=== PATIENT | female | born 1980 | race Hispanic/Latino ===

== ENCOUNTER 2023-12-11 06:14 | Day surgery (SDC) | payer OTHER ==
[2023-12-09 16:09] LABS: Absolute Lymphocytes (CBC) 3.8 K/uL (0.7-4.9); Lymphocytes % 33.2 % (15.3-44.8); MCV 88.1 fL (80-100); MPV 8.8 fL (7.6-11.3); Platelets 384 thou/uL (152-406); RBC Red Blood Cell Count 4.53 M/uL (3.86-4.86)
--- NOTE | 2023-12-09 16:20 | RAD REPORT ---
EXAM DESCRIPTION: Hector Finn (2 Views)12/09/2023 4:10 pm CLINICAL HISTORY: Preop/hypertension COMPARISON: None FINDINGS: The lungs appear clear of acute infiltrate. The heart appears borderline enlarged IMPRESSION: No acute abnormalities displayed
[2023-12-11] MEDS: NA CHLORIDE 0.9% 1,000 ML ONE ×2 (07:15→09:45)
[2023-12-11 07:33] LABS: Urine Specific Gravity/Preg >1.030 (1.005-1.030)
[2023-12-11] MEDS ORDERED: dexAMETHasone 10 MG/ML VIAL ONE (08:11)
[2023-12-11] MEDS ORDERED: LIDOCAINE 1% MPF 5 ML VIAL ONE (08:11)
[2023-12-11] MEDS ORDERED: KETOROLAC 30 MG/ML INJ ONE (08:11)
[2023-12-11] MEDS ORDERED: ONDANSETRON 4 MG/2 ML VIAL ONE (08:11)
[2023-12-11] MEDS ORDERED: propofoL 200 MG/20 ML VIAL IV ONE (08:12)
[2023-12-11] MEDS ORDERED: FENTANYL CITR 100 MCG/2 ML ONE (08:12)
[2023-12-11] MEDS ORDERED: MIDAZOLAM HCL 2 MG/2 ML INJ ONE (08:12)
[2023-12-11] MEDS ORDERED: ROCURONIUM 50 MG/5 ML VIAL IV ONE (08:12)
[2023-12-11] MEDS: CEFAZOLIN SODIUM 1 GM/VIAL ONE (08:38)
[2023-12-11] MEDS ORDERED: NS 0.9% VIAL 10 ML ONE (08:59)
[2023-12-11] MEDS ORDERED: GLYCOPYRROLATE 0.2 MG/ML SYR ONE (09:54)
[2023-12-11] MEDS ORDERED: NEOSTIGMINE 1 MG/ML -10 ML VIAL ONE (09:55)
--- NOTE | 2023-12-11 10:23 | P.BOP ---
Preoperative diagnosis: Ventral Infraumbilical incarcerated hernia Postoperative diagnosis: same Primary procedure: LAparoscopic repair Ventral Infraumbilical incarcerated hernia with mesh Estimated blood loss: <10cc Specimen: hernia sac , incarcerated omentum Findings: incarcerated omentum Anesthesia: General Complications: None Drain(s): Other (mesh) Transferred to: Recovery Room Condition: Good
[2023-12-11] MEDS: HYDROMORPHONE HCL 1 MG/ML INJ ONE (10:35)
[2023-12-11 12:30] VITALS: BP 116/70; TEMP 97.3; O2SAT 95
--- NOTE | 2023-12-11 23:40 | DS ---
Date of Discharge: 12/11/2023 Diagnosis: Ventral infraumbilical incarcerated hernia. Procedure Performed: Laparoscopic repair of ventral infraumbilical incarcerated hernia with mesh. Condition: Stable. Disposition: Home. Activity: As tolerated. No heavy lifting. Discharge Instructions: Follow up in my office in 1 week, call for appointment [phone]. Keep area dry for 48 hours, then may remove outer dressings and shower. Keep Steri-Strip intact. Abdominal bi nder while out of bed. CONCHA/BONY Voice ID: [id number] Report ID: [id number]
--- NOTE | 2023-12-12 00:25 | OP ---
Date of Procedure: 12/11/2023 Surgeon: Melvin Gomez MD Preoperative Diagnosis: Ventral infraumbilical tender incarcerated hernia. Postoperative Diagnosis: Ventral infraumbilical tender incarcerated hernia. Procedure Performed: Repair of infraumbilical incarcerated ventral hernia with mesh. Estimated Blood Loss: Less than 10 cc. Specimens: Hernia sac, incarcerated omentum. Finding: Incarcerated omentum. Anesthesia: General plus local. Implant: Medium Ventralex mesh. Indication: This is a case of a 43-year-old patient who comes to us with the incarcerated tender rasheed tral hernia, cannot be reduced. The benefits, alternatives, and risks of repair, laparoscopic versus open with mesh fully explained, which include, but not limited to infection, bleeding, damage to adj acent structures, anesthesia complication, recurrence, RI, and even . She also understands this may not relieve symptoms. She might need more than one surgical intervention. She was explained th e importance also of losing some weight and avoid heavy lifting. Procedure In Detail: The patient was brought to the operating room, placed in supine position. Anes thesia was done without complication. Abdominal area was prepped and draped in usual sterile fashion . Local anesthesia was applied, followed by sharp incision of skin. Incision was carried down to figueroa bcutaneous tissue. We noticed the incarcerated omentum present. We have to open the hernia sac and the incarcerated omentum cannot be reduced, so we split that in two ligating with Avril cl amps and chromic. Then, when we checked each part and made sure there was no bleeding, we reduced back into the abdominal cavity. We cleaned the fascial edges. We noticed to be not intact enough, so we need to use mesh in that region. We cleaned the fascial edges. Through that area, we put Vicryl #1 in a oxxqxz-lg-lbdxf fashion multiple times and then we sent down a Daniel trocar that allowed me to have pneumoperitoneum. This also allowed me to put 5 mm trocars under direct visualiza tion over the right and left sides. This allowed me to select the proper mesh to cover the area abou t 3 to 5 cm. I then put the mesh through the Daniel trocar, removed the Daniel trocar, and then secu red the mesh anteriorly with the SorbaFix. Mesh straps were removed and then the fascial edges were approximated primarily in a eabtcx-mh-suiya fashion #1 multiple times. Then, we went intraperitoneal again and finished fixing the mesh into the anterior abdominal wall circumferentially with SorbaFix minimizing the chance of recurrence, and getting in between. At that moment, we checked t he area. We had the area of the omentum also checked with no bleeding. We deflated the pneumoperito neum, removed the trocars under direct visualization, and then closed the subcutaneous tissue with 3- 0 chromic, and the skin was approximated with 3-0 chromic in a subcuticular fashion and Steri-Strip o n top. Sponge count and instrument counts were correct. The patient tolerated procedure well. The patient was sent to recovery in stable condition. CONCHA/BONY Voice ID: [id number] Report ID: [id number]
--- NOTE | 2023-12-12 14:48 | EKG ---
Test Date: 2023-12-09 Test Time: 16:54:34 Transport Specialist: TAWANA MEASUREMENT RESULTS: Intervals: Rate: 78 IN: 170 QRSD: 82 QT: 376 QTc: 428 [place]: P: 49 IN: 170 QRS: -10 T: 42 INTERPRETIVE STATEMENTS: Normal sinus rhythm with sinus arrhythmia Cannot rule out Anterior infarct, age undetermined Abnormal ECG No previous ECG available for comparison Electronically Signed On 12-12-23 14:43:10 CARD ASSEMBLER by Jose Lovell
== END 2023-12-11 12:04 | disposition home or self-care (01) ==
LOC: OR 06:14
PROVIDERS: ATTEND Surgery
PROC: 0WUF4JZ Supplement Abdominal Wall with Synthetic Substitute, Percutaneous Endoscopic Approach (ICD-10-PCS; principal; 2023-12-11 08:45)
DX: K43.6 Other and unspecified ventral hernia with obstruction, without gangrene (principal); I10 Essential (primary) hypertension; E11.9 Type 2 diabetes mellitus without complications
CPT/HCPCS: 36415; 71046; 80048; 81025; 82947; 85025; 88302; 93005; A4216; J0690; J1100; J1170; J2001; J2250; J2405; J2704; J2710; J3010; J7030

== ENCOUNTER 2024-04-11 18:35 | Emergency (ER) | payer OTHER ==
--- OUTSIDE RECORDS SUMMARY | 2024-04-11 18:45 | XMS REPORT | Continuity of Care Document ---
Author Name Unknown Address [address] [facility] [address] [place] [address] [facility] thconnect Address [address] [facility] [place] [address] Care Team Providers Care Rubber Chemist Name Role Phone Lakeshia Perez Primary Care Physician [phone] AFIA BUCKLEY Attending Clinician Unavailable MONA SIDDIQUI Attending Clinician Unavailable Mona Velarde Attending Clinician [facility]ending [facility] + RALPH CRISTOBAL Attending Clinician Unavailable SARA QUARLES Attending Clinician UnavailSara Fajardo MD Attending Clinician Elyssa Louise MD Attending Clinician Liliana Vela MD Attending Clinician LILIANA VELA Attending Clinician Unavailable LEANDRA MURILLO Attending Clinician Unavail able Doctor Unassigned, [place] Attending Clinician U navailable Payers Payer Name Policy Type Policy Number Effective Date Expirati on Date Source Problems Condition Name Condition Details Condition Category Status Onset Date Resolution Date Last Treatment Date Treating Clinician Comments Source BMI 45.0-49.9, adult BMI 45.0-49.9, adult Disease Active 2022-10 00:00: 00 [facility] Well woman exam Well woman exam Disease Active 05-19 00:00: 00 [facility] Morbid obesity Morbid obesity Disease Active 05-07 00:00: 00 [facility] IUD (intrauter ine device) in place IUD (intrauter ine device) in place Disease Active 01-04 00:00: 00 Overview: Due for removal 11/23/2019 [facility] Encounter for IUD removal Encounter for IUD removal Disease Active 01-04 00:00: 00 Overview: Formattin g of this note might be different from the original. Due for removal 11/23/2019 [facility] Dysmenorrh ea Dysmenorrh ea Disease Active 11-23 00:00: 00 [facility] HTN (hypertens ion) HTN (hypertens ion) Disease Active 814 00:00: 00 [facility] Type 2 diabetes mellitus without complicati on Type 2 diabetes mellitus without complicati on Disease Active 05-26 00:00: 00 [facility] Allergies, Adverse Reactions, Alerts Allergy Name Allergy Type Status Severity Reaction(s) Onset Date Inactive Date Treating Clinician Comments Source NO KNOWN ALLERGIE S Drug Class Active [facility] Social History Social Habit Start Date Stop Date Quantity Comments Source [facility] 2023-10-15 00:00:00 2023-10-15 00:00:00 Current non-drinker of alcohol (finding) [facility] Tobacco use and exposure 2023-10-15 00:00:00 2023-10-15 00:00:00 Smokeless tobacco non-user [facility] History of Social function 2023-10-15 00:00:00 2023-10-15 00:00:00 [facility] Sex Assigned At 1980 00:00:00 1980 00:00:00 [facility] Smoking Status Start Date Stop Date Source Never smoked tobacco [facility] Medications Ordered Medication Name Filled Medication Name Start Date Stop Date Current Medication? Ordering Clinician Indication Dosage Frequency Signature (SIG) Comments Components Source glipizide 5 mg-metformi n 500 mg tablet 02-03 00:00: 00 Yes 2mg Shawn Diaz Victoza 3-Richard 0.6 mg/0.1 mL (18 mg/3 mL) subcutaneou s pen injector 02-02 00:00: 00 Yes (18 mg/3 mL) Shawn Diaz lisinopril 5 mg tablet 02-02 00:00: 00 Yes mg Shawn Diaz Lantus Solostar U-100 Insulin 100 unit/mL (3 mL) subcutaneou s pen 02-02 00:00: 00 Yes (3 mL) Shawn Diaz glipizide 5 mg-metformi n 500 mg tablet 02-02 00:00: 00 Yes 2mg Shawn Diaz atorvastati n 20 mg tablet 02-02 00:00: 00 Yes 1mg Shawn Diaz clotrimazol e 1 % vaginal cream 01-30 00:00: 00 Yes 1% Shawn Diaz amoxicillin 500 mg tablet - 00:00: 00 Yes 2mg Shawn Diaz clarithromy chika 500 mg tablet - 00:00: 00 Yes 1mg Shawn Diaz omeprazole 20 mg capsule,del ayed release 01-20 00:00: 00 Yes 1mg Shawn Diaz AMOXICILLIN 500 MG CAPSULE - 00:00: 00 Yes Shawn Diaz SULFAMETHOX AZOLE-TMP DS -14 00:00: 00 Yes Shawn Diaz TAKE 1 TABLET BY MOUTH EVERY 4 TO 6 HOURS NEEDED -14 00:00: 00 Yes Shawn Diaz lisinopril 5 mg tablet -08 00:00: 00 Yes mg Shawn Diaz INJECT 10 UNITS SC ONCE A DAY -08 00:00: 00 Yes 100 Shawn Diaz INJECT 1.8 MG SUBCUTANEOU SLY EVERY DAY 2-05 00:00: 00 Yes 183 Shawn Diaz TAKE 2 TABLETS TWICE DAILY 2-05 00:00: 00 Yes 5500 Shawn Diaz TAKE 1 TABLET BY MOUTH EVERY EVENING 12-02 00:00: 00 Yes 20 Shawn Diaz INJECT 10 UNITS SC ONCE A DAY 12-02 00:00: 00 02-18 00:00 :00 No 100 Shawn Diaz TAKE 1 NOW, REPEAT IN 3 DAYS 11-05 00:00: 00 02-18 00:00 :00 No 150 Shawn Diaz INSERT 1 APPLICATORF UL INTRAVAGINA LLY AT BEDTIME NIGHTLY. 11-05 00:00: 00 02-18 00:00 :00 No 1 Shawn Diaz INJECT 1.8 MG SUBCUTANEOU SLY EVERY DAY 11-05 00:00: 00 02-18 00:00 :00 No 183 Shawn Diaz TAKE 1 TABLET TWICE DAILY UNTIL FINISHED. 2022-10 00:00: 00 02-18 00:00 :00 No 500 Shawn Diaz citalopram hydrobromid e (CITALOPRAM ORAL) 2022-10 09:35: 49 Yes 20mg Take 20 mg by mouth daily. [facility] lisinopriL 2.5 mg tablet 2022-10 09:35: 49 Yes 2.5mg Take 1 tablet by mouth daily. [facility] atorvastati n 20 mg tablet 2022-10 09:35: 49 Yes 20mg Take 1 tablet by mouth at bedtime. [facility] glipizide-m etformin 5-500 mg per tablet 2022-10 09:35: 49 Yes 2{tbl} Take 2 tablets by mouth 2 (two) times daily before breakfast and dinner. [facility] TAKE 1 CAPSULE TWICE DAILY. 2022-10 00:00: 00 02-18 00:00 :00 No 100 Shawn Diaz INSERT 1 APPLICATORF UL INTRAVAGINA LLY AT BEDTIME NIGHTLY. 2022-10 00:00: 00 02-18 00:00 :00 No 1 Shawn Diaz TAKE 1 NOW, REPEAT IN 3 DAYS 2023-1 2-18 00:00: 00 02-18 00:00 :00 No 150 Shawn Megan Diaz TAKE 1 CAPSULE TWICE DAILY UNTIL GONE. 2022-10 00:00: 00 02-18 00:00 :00 No 100 Shawn F Joe INSERT 1 APPLICATORF UL INTRAVAGINA LLY AT BEDTIME NIGHTLY. 2022-10 00:00: 00 02-18 00:00 :00 No 1 Shawnmel Diaz TAKE 1 TABLET NOW, AND REPEAT IN 4 DAYS. 2022-10 00:00: 00 02-18 00:00 :00 No 150 Shawn F Joe TAKE 1 TABLET DAILY. 2022-10 00:00: 00 Yes 25 Shawn Megan Diaz TAKE 1 TABLET BY MOUTH EVERY EVENING 2022-10 0 00:00: 00 02-18 00:00 :00 No 20 Shawn F Joe INJECT 1.8 MG SUBCUTANEOU SLY EVERY DAY 2022-10 00:00: 00 02-18 00:00 :00 No 183 Shawn F Joe TAKE 2 TABLETS TWICE DAILY 2022-10 0 00:00: 00 02-18 00:00 :00 No 5500 Shawn F Joe TAKE 1 TABLET BY MOUTH EVERY EVENING 04-15 00:00: 00 02-18 00:00 :00 No 20 Shawn F Joe TAKE 1 TABLET ONCE DAILY. 04-15 00:00: 00 02-18 00:00 :00 No 45 Shawn F Joe TAKE 2 TABLETS TWICE DAILY 04-15 00:00: 00 02-18 00:00 :00 No 5500 Shawn F Joe INJECT 1.2 MG/DAILY SC 04-15 00:00: 00 02-18 00:00 :00 No 183 Shawn F Joe TAKE 1 TABLET DAILY. 04-15 00:00: 00 02-18 00:00 :00 No 25 Shawn F Joe TAKE 1 TABLET TWICE DAILY. 4- 00:00: 00 02-18 00:00 :00 No [id number] Shawn F Joe TAKE 1 TABLET DAILY NEEDED. 4-25 00:00: 00 02-18 00:00 :00 No 10 Shawn F Joe TAKE 1 TABLET TWICE DAILY. 4 00:00: 00 02-18 00:00 :00 No 500 Shawn F Joe TAKE 1 TABLET BY MOUTH EVERY EVENING 4-20 00:00: 00 02-18 00:00 :00 No 20 Shawn F Joe TAKE 1 TABLET DAILY. 4-20 00:00: 00 02-18 00:00 :00 No 25 Shawn F Joe TAKE 1 TABLET TWICE DAILY UNTIL FINISHED. 01-17 00:00: 00 02-18 00:00 :00 No 500 Shawn F Joe TAKE 1 TABLET NOW, AND REPEAT IN 4 DAYS. 01-17 00:00: 00 02-18 00:00 :00 No 150 Shawn F Joe INJECT 1.2 MG/DAILY SC 3- 00:00: 00 02-18 00:00 :00 No 183 Shawn F Joe TAKE 1 TABLET BY MOUTH EVERY EVENING 1- 00:00: 00 02-18 00:00 :00 No 20 Shawn F Joe TAKE 1 TABLET ONCE DAILY. - 00:00: 00 02-18 00:00 :00 No 45 Shawn Megan Diaz TAKE 1 TABLET DAILY. 11-13 00:00: 00 02-18 00:00 :00 No 25 Shawn Megan Diaz TAKE 2 TABLETS TWICE DAILY 11-13 00:00: 00 02-18 00:00 :00 No 5500 Shawn F Joe INJECT 0.6 MG DAILY X 1 WEEK AND THEN 1.2 MG/DAILY 11-13 00:00: 00 02-18 00:00 :00 No 183 Shawn F Joe pioglitazon e 45 mg tablet 04-24 00:00: 00 Yes 1mg Shawn Megan Diaz lisinopril 2.5 mg tablet 04-24 00:00: 00 Yes 1mg Shawn Megan Diaz TAKE 1 TABLET DAILY. 2022-0 6-28 00:00: 00 Yes Shawn Diaz glipizide 5 mg-metformi n 500 mg tablet 6-28 00:00: 00 Yes 2mg Shawn Diaz Dose Unknown 3-11 00:00: 00 Yes Shawn Diaz pioglitazon e 30 mg tablet 2-19 00:00: 00 Yes 1mg Shawn Diaz lisinopril 2.5 mg tablet 2-16 00:00: 00 Yes 1mg Shawn Diaz TAKE 1 TABLET DAILY. 2-16 00:00: 00 Yes Shawn Diaz glipizide 5 mg-metformi n 500 mg tablet 2-16 00:00: 00 Yes 2mg Shawn Diaz Dose Unknown 1-18 00:00: 00 Yes Shawn Diaz lisinopril 2.5 mg tablet 1-05 00:00: 00 Yes 1mg Shawn Diaz Januvia 50 mg tablet 1-05 00:00: 00 Yes 1mg Shawn Diaz glipizide 5 mg-metformi n 500 mg tablet 1-05 00:00: 00 Yes 2mg Shawn Solizfed DM 2 mg-30 mg-10 mg/5 mL oral syrup 2020-10 2-14 00:00: 00 Yes 75mg/5 mL Shawn Diaz Januvia 50 mg tablet 2020-10 1-15 00:00: 00 Yes 1mg Shawn Diaz lisinopril 2.5 mg tablet 2020-10 1-15 00:00: 00 Yes 1mg Shawn Diaz glipizide 5 mg-metformi n 500 mg tablet 2020-10 1-15 00:00: 00 Yes 2mg Shawn Diaz Bromfed DM 2 mg-30 mg-10 mg/5 mL oral syrup 2020-10 1- 00:00: 00 Yes 75mg/5 mL Shawn Diaz Januvia 25 mg tablet 7-29 00:00: 00 Yes 1mg Shawn Diaz lisinopril 2.5 mg tablet 7- 00:00: 00 Yes 1mg Shawn Diaz glipizide 5 mg-metformi n 500 mg tablet 05-22 00:00: 00 Yes 2mg Shawn Diaz glipizide 5 mg-metformi n 500 mg tablet 02-17 00:00: 00 Yes 2mg Shawn Diaz lisinopril 2.5 mg tablet 02-13 00:00: 00 Yes 1mg Shawn Diaz glimepiride 4 mg tablet 04-04 00:00: 00 Yes 1mg Shawn Diaz metformin 1,000 mg tablet 04-04 00:00: 00 Yes 1mg Shawn Diaz levothyroxi ne 88 mcg tablet 04-04 00:00: 00 Yes 1mcg Shawn Diaz glimepiride 2 mg tablet 02-10 22:30: 44 02-10 00:00 :00 No 2mg Take 2 mg by mouth daily with breakfast. [facility] LEVOTHYROXI NE SODIUM (LEVOTHYROX INE ORAL) 02-10 22:29: 10 02-10 00:00 :00 No 88ug Take 88 mcg by mouth. [facility] Mirena 20 mcg/24 hours (6 yrs) 52 mg intrauterin e device 11 00:00: 00 Yes 1(6 yrs) 52 mg Shawn Diaz metformin ER 500 mg 24 hr tablet,exte nded release (gastric) 01-03 00:00: 00 Yes 1mg Shawn Diaz glimepiride 4 mg tablet 01-03 00:00: 00 Yes 1mg Shawn Diaz levothyroxi ne 88 mcg tablet 01-03 00:00: 00 Yes 1mcg Shawn Diaz metformin ER 500 mg 24 hr tablet,exte nded release (gastric) 12-04 00:00: 00 Yes 1mg Shawn Diaz glimepiride 4 mg tablet 12-04 00:00: 00 Yes 1mg Shawn Diaz levothyroxi ne 88 mcg tablet 12-04 00:00: 00 Yes 1mcg Shawn Diaz metformin ER 500 mg 24 hr tablet 12-04 00:00: 00 Yes 500mg Take 1 tablet by mouth 2 (two) times daily. [facility] glimepiride 4 mg tablet 12-04 00:00: 00 Yes 4mg Take 1 tablet by mouth 2 (two) times daily. [facility] triamcinolo ne acetonide 0.1 % cream 12-03 00:00: 00 Yes [id number] Apply to area(s) 2 (two) times daily. [facility] predniSONE 20 mg tablet 12-03 00:00: 00 Yes [id number] Take 2 pills by mouth every day for the first 5 days, then take 1 pill every day for the next 5 days, then take 1 pill every other day until next visit. [facility] citalopram hydrobromid e (CITALOPRAM ORAL) 05-19 21:24: 03 Yes 20mg Take 20 mg by mouth daily. [facility] glimepiride 2 mg tablet 05-19 21:24: 03 Yes 2mg Take 2 mg by mouth daily with breakfast. [facility] LEVOTHYROXI NE SODIUM (LEVOTHYROX INE ORAL) 05-19 21:24: 03 Yes 88ug Take 88 mcg by mouth. [facility] citalopram hydrobromid e (CITALOPRAM ORAL) 05-19 16:24: 03 Yes 20mg Take 20 mg by mouth daily. [facility] fluticasone propionate 0.05 % topical cream 04-08 00:00: 00 Yes 1% Shawn Megan Diaz citalopram 20 mg tablet 04-08 00:00: 00 Yes 1mg Shawn Guzman Joe hydroxyzine HCl 25 mg tablet 02-24 00:00: 00 Yes 1mg Shawn Megan Diaz triamcinliliya ne acetonide 0.025 % topical cream 01-05 00:00: 00 Yes 1% Shawn Guzman Joe metformin ER 500 mg 24 hr tablet,exte nded release (gastric) 01-05 00:00: 00 Yes 1mg Shawn Guzman Joe glimepiride 4 mg tablet 01-05 00:00: 00 Yes 1mg Shawn Diaz levothyroxi ne 88 mcg tablet 01-05 00:00: 00 Yes 1mcg Shawn Diaz phentermine 37.5 mg tablet 12-31 00:00: 00 Yes 1mg Shawn Diaz permethrin 5 % topical cream 11-20 00:00: 00 Yes 1% Shawn Diaz glimepiride 4 mg tablet 2017-10 00:00: 00 Yes 1mg Shawn Diaz levothyroxi ne 88 mcg tablet 2017-10 00:00: 00 Yes 1mcg Shawn Diaz Januvia 100 mg tablet 07-03 00:00: 00 Yes 1mg Shawn Diaz glimepiride 4 mg tablet 07-03 00:00: 00 Yes 1mg Shawn Diaz levothyroxi ne 88 mcg tablet 07-03 00:00: 00 Yes 1mcg Shawn Diaz sitaGLIPtin (JANUVIA) 100 mg tablet 05-08 00:00: 00 02-10 00:00 :00 No 100mg Take 100 mg by mouth daily. [facility] glimepiride 2 mg tablet 12-31 00:00: 00 Yes 1mg Shawn Diaz amoxicillin 500 mg tablet 12-31 00:00: 00 Yes 1mg Shawn Diaz levothyroxi ne 88 mcg tablet 12-31 00:00: 00 Yes 1mcg Shawn Diaz glimepiride 2 mg tablet 2016-10 00:00: 00 Yes 1mg Shawn Diaz glimepiride 2 mg tablet 2016-10 00:00: 00 Yes 1mg Shawn Diaz Cipro 500 mg tablet 2016-10 00:00: 00 Yes 1mg Shawn Diaz citalopram 20 mg tablet 06-04 00:00: 00 Yes 1mg Shawn Diaz loratadine 10 mg tablet 06-04 00:00: 00 Yes 1mg Shawn Diaz amoxicillin 500 mg tablet 06-04 00:00: 00 Yes 1mg Shawn Diaz levothyroxi ne 88 mcg tablet 06-04 00:00: 00 Yes 1mcg Shawn Diaz cyclobenzap rine 5 mg tablet 05-29 00:00: 00 Yes 1mg Shawn Diaz glimepiride 2 mg tablet 03-07 00:00: 00 Yes 1mg Shawn Diaz levothyroxi ne 88 mcg tablet 03-07 00:00: 00 Yes 1mcg Shawn Diaz mupirocin 2 % topical ointment 03-01 00:00: 00 Yes 1% Shawn Diaz Bactrim DS 800 mg-160 mg tablet 03-01 00:00: 00 Yes 1mg Shawn Diaz mupirocin 2 % topical ointment 12-27 00:00: 00 Yes 1% Shanw Diaz glimepiride 2 mg tablet 12-27 00:00: 00 Yes 1mg Shawn Diaz levothyroxi ne 88 mcg tablet 12-27 00:00: 00 Yes 1mcg Shawn Diaz Ciprodex 0.3 %-0.1 % ear drops,suspe nsion 2015-10 00:00: 00 Yes 4% Shawn Diaz Cipro HC 0.2 %-1 % ear drops,suspe nsion 2015-10 00:00: 00 Yes 4% Shawn Diaz Bactrim DS 800 mg-160 mg tablet 2015-10 00:00: 00 Yes 1mg Shawn Diaz Keflex 500 mg capsule 2015-10 00:00: 00 Yes 1mg Shawn Diaz glimepiride 2 mg tablet 2015-10 00:00: 00 Yes 1mg Shawn Diaz Augmentin 875 mg-125 mg tablet 2015-10 00:00: 00 Yes 1mg Shawn Diaz levothyroxi ne 88 mcg tablet 2015-10 00:00: 00 Yes 1mcg Shawn Diaz glimepiride 2 mg tablet 06-21 00:00: 00 Yes 1mg Shawn Diaz glimepiride 2 mg tablet 05-27 00:00: 00 Yes 1mg Shawn Diaz metformin 500 mg tablet 05-24 00:00: 00 Yes 1mg Shawn Diaz levothyroxi ne 88 mcg tablet 05-24 00:00: 00 Yes 1mcg Shawn Diaz Cortisporin -TC 3.3 mg-3 mg-10 mg-0.5 mg/mL ear drops,suspe nsion 01-29 00:00: 00 Yes 4mg/mL Shawn Diaz Augmentin 875 mg-125 mg tablet 01-29 00:00: 00 Yes 1mg Shawn Diaz amoxicillin 500 mg capsule 12-12 00:00: 00 Yes 1mg Shawn Diaz metformin 500 mg tablet 11-28 00:00: 00 Yes 1mg Shawn Diaz levothyroxi ne 88 mcg tablet 11-28 00:00: 00 Yes 1mcg Shawn Diaz levothyroxi ne 88 mcg tablet 2014-10 00:00: 00 Yes 1mcg Shawn Diaz levothyroxi ne 88 mcg tablet 06-13 00:00: 00 Yes 1mcg Shawn Diaz metformin 500 mg tablet 06-10 00:00: 00 Yes 1mg Shawn Diaz levothyroxi ne 88 mcg tablet 04-26 00:00: 00 Yes 1mcg Shawn Diaz metformin 500 mg tablet 03-14 00:00: 00 Yes 1mg Shawn Diaz levothyroxi ne 125 mcg tablet 03-14 00:00: 00 Yes 1mcg Shawn Diaz metformin 500 mg tablet 02-22 00:00: 00 Yes 1mg Shawn Diaz metformin 500 mg tablet 01-24 00:00: 00 Yes 1mg Shawn Diaz Immunizations Ordered Immunization Name Filled Immunization Name Date Status Comments Source Influenza, seasonal, inj Influenza, seasonal, inj 2022-11-13 00:00:00 Completed Shawn Diaz influenza, injectable influenza, injectable 2022-11-13 00:00:00 Completed Shawn Diaz (Old) COVID-19, (Pfizer) mRNA, LNP-S, PF, 30 mcg/0.3 mL dose, gerda-sucrose (Old) COVID-19, (Pfizer) mRNA, LNP-S, PF, 30 mcg/0.3 mL dose, gerda-sucrose 2021-12-13 00:00:00 Completed Shawn Diaz Influenza, seasonal, inj Influenza, seasonal, inj 2019-11-23 00:00:00 Completed Shawn Diaz TDAP (ADACEL) VACCINE 2018-04-27 00:00:00 Completed [facility] TDAP (ADACEL) VACCINE 2018-04-27 00:00:00 Completed [facility] TDAP (ADACEL) VACCINE 2018-04-27 00:00:00 Completed [facility] TDAP (ADACEL) VACCINE 2018-04-27 00:00:00 Completed [facility] TDAP (ADACEL) VACCINE 2018-04-27 00:00:00 Completed [facility] TDAP (ADACEL) VACCINE 2018-04-27 00:00:00 Completed [facility] TDAP (ADACEL) VACCINE 2018-04-27 00:00:00 Completed [facility] TDAP (ADACEL) VACCINE 2018-04-27 00:00:00 Completed [facility] TDAP (ADACEL) VACCINE 2018-04-27 00:00:00 Completed [facility] TDAP (ADACEL) VACCINE 2018-04-27 00:00:00 Completed [facility] TDAP (ADACEL) VACCINE 2018-04-27 00:00:00 Completed [facility] Tdap Tdap 2018-04-03 00:00:00 Completed Shawn Diaz Rubella 2009-03-10 00:00:00 Completed [facility] Rubella 2009-03-10 00:00:00 Completed [facility] Rubella 2009-03-10 00:00:00 Completed [facility] Rubella 2009-03-10 00:00:00 Completed [facility] Rubella 2009-03-10 00:00:00 Completed [facility] Rubella 2009-03-10 00:00:00 Completed [facility] Rubella 2009-03-10 00:00:00 Completed [facility] Rubella 2009-03-10 00:00:00 Completed [facility] Rubella 2009-03-10 00:00:00 Completed [facility] Rubella 2009-03-10 00:00:00 Completed [facility] Rubella 2009-03-10 00:00:00 Completed [facility] Td 2003-10-28 00:00:00 Completed [facility] Td 2003-10-28 00:00:00 Completed [facility] Td 2003-10-28 00:00:00 Completed [facility] Td 2003-10-28 00:00:00 Completed [facility] Td 2003-10-28 00:00:00 Completed [facility] Td 2003-10-28 00:00:00 Completed [facility] Td 2003-10-28 00:00:00 Completed [facility] Td 2003-10-28 00:00:00 Completed [facility] Td 2003-10-28 00:00:00 Completed [facility] Td 2003-10-28 00:00:00 Completed [facility] Td 2003-10-28 00:00:00 Completed [facility] Rubella Unknown Completed [facility] TD, NOS Unknown Completed [facility] TDAP (ADACEL) VACCINE Unknown Completed [facility] SARS-COV-2 COVID-19 PFIZER VACCINE Unknown Completed [facility] SARS-COV-2 COVID-19 PFIZER VACCINE Unknown Completed [facility] Rubella Unknown Completed [facility] TD, NOS Unknown Completed [facility] TDAP (ADACEL) VACCINE Unknown Completed [facility] SARS-COV-2 COVID-19 PFIZER VACCINE Unknown Completed [facility] SARS-COV-2 COVID-19 PFIZER VACCINE Unknown Completed [facility] Rubella Unknown Completed [facility] TD, NOS Unknown Completed [facility] TDAP (ADACEL) VACCINE Unknown Completed [facility] SARS-COV-2 COVID-19 PFIZER VACCINE Unknown Completed [facility] SARS-COV-2 COVID-19 PFIZER VACCINE Unknown Completed [facility] Vital Signs Vital Name Observation Time Observation Value Comments S ource Systolic blood pressure 2023-10-15 15:36:00 121 mm[Hg] [facility] Diastolic blood pressure 2023-10-15 15:36:00 84 mm[Hg] [facility] Heart rate 2023-10-15 15:36:00 88 /min Unive [facility] Body temperature 2023-10-15 15:36:00 37 Jessica [facility] Body height 2023-10-15 15:36:00 154.9 cm [facility] Body weight 2023-10-15 15:36:00 111.449 kg [facility] BMI 2023-10-15 15:36:00 46.42 kg/m2 [facility] Oxygen saturation in Arterial blood by Pulse oximetry 2023-10-15 15:36:00 97 /min [facility] Systolic blood pressure 2019-12-30 14:49:00 144 mm[Hg] [facility] Diastolic blood pressure 2019-12-30 14:49:00 91 mm[Hg] [facility] Heart rate 2019-12-30 14:49:00 81 /min [facility] Body temperature 2019-12-30 14:49:00 36.72 Jessica [facility] Respiratory rate 2019-12-30 14:49:00 16 /min [facility] Body height 2019-12-30 14:49:00 154.9 cm [facility] Body weight 2019-12-30 14:49:00 104.894 kg [facility] BMI 2019-12-30 14:49:00 43.69 kg/m2 [facility] BP Systolic 2024-03-12 15:08:00 123 mm[Hg] Step hen F Joe BP Diastolic 2024-03-12 15:08:00 69 mm[Hg] Gabriele phen F Joe Weight Measured 2024-03-12 15:08:00 239.20 pounds Shawn F Joe Height Measured 2024-03-12 15:08:00 62.50 inches Shawn F Joe Body Temperature 2024-03-12 15:08:00 Shawn F Joe Heart Rate 2024-03-12 15:08:00 95.00 /min Adeline en F Joe Respiratory Rate 2024-03-12 15:08:00 Shawn F Joe BP Systolic 2024-02-12 13:30:00 125 mm[Hg] Step hen F Joe BP Diastolic 2024-02-12 13:30:00 82 mm[Hg] Gabriele phen F Joe Weight Measured 2024-02-12 13:30:00 239.80 pounds Shawn F Joe Height Measured 2024-02-12 13:30:00 62.50 inches Shawn F Joe Body Temperature 2024-02-12 13:30:00 98.00 degrees Shawn F Joe Heart Rate 2024-02-12 13:30:00 96.00 /min Adeline en F Joe Respiratory Rate 2024-02-12 13:30:00 18.00 /min Shawn F Joe BP Systolic 2024-02-03 08:32:00 Step hen F Joe BP Diastolic 2024-02-03 08:32:00 Gabriele phen F Joe Weight Measured 2024-02-03 08:32:00 239.60 pounds Shawn F Joe Height Measured 2024-02-03 08:32:00 62.50 inches Shawn F Joe Body Temperature 2024-02-03 08:32:00 97.80 degrees Shawn F Joe Heart Rate 2024-02-03 08:32:00 106.00 /min Step hen F Joe Respiratory Rate 2024-02-03 08:32:00 16.00 /min Shawn F Joe BP Systolic 2024-01-30 09:30:00 122 mm[Hg] Step hen F Joe BP Diastolic 2024-01-30 09:30:00 70 mm[Hg] Gabriele phen F Joe Weight Measured 2024-01-30 09:30:00 242.80 pounds Shawn F Joe Height Measured 2024-01-30 09:30:00 62.50 inches Shawn F Joe Body Temperature 2024-01-30 09:30:00 98.10 degrees Shawn F Joe Heart Rate 2024-01-30 09:30:00 100.00 /min Step hen F Joe Respiratory Rate 2024-01-30 09:30:00 Shawn F Joe BP Systolic 2024-01-20 09:27:00 122 mm[Hg] Step hen F Joe BP Diastolic 2024-01-20 09:27:00 88 mm[Hg] Gabriele phen F Joe Weight Measured 2024-01-20 09:27:00 243.40 pounds Shawn F Joe Height Measured 2024-01-20 09:27:00 62.50 inches Shawn F Joe Body Temperature 2024-01-20 09:27:00 Shawn F Joe Heart Rate 2024-01-20 09:27:00 81.00 /min Adeline en F Joe Respiratory Rate 2024-01-20 09:27:00 18.00 /min Shawn F Joe BP Systolic 2023-12-05 08:52:00 124 mm[Hg] Step hen F Joe BP Diastolic 2023-12-05 08:52:00 86 mm[Hg] Gabriele phen F Joe Weight Measured 2023-12-05 08:52:00 242.00 pounds Shawn F Joe Height Measured 2023-12-05 08:52:00 62.50 inches Shawn F Joe Body Temperature 2023-12-05 08:52:00 98.10 degrees Shawn F Joe Heart Rate 2023-12-05 08:52:00 100.00 /min Step hen F Joe Respiratory Rate 2023-12-05 08:52:00 18.00 /min Shawn F Joe BP Systolic 2023-12-02 11:09:00 147 mm[Hg] Step hen F Joe BP Diastolic 2023-12-02 11:09:00 113 mm[Hg] Gabriele phen F Joe Weight Measured 2023-12-02 11:09:00 243.40 pounds Shawn F Joe Height Measured 2023-12-02 11:09:00 62.50 inches Shawn F Joe Body Temperature 2023-12-02 11:09:00 98.50 degrees Shawn F Joe Heart Rate 2023-12-02 11:09:00 78.00 /min Adeline en F Joe Respiratory Rate 2023-12-02 11:09:00 18.00 /min Shawn F Joe BP Systolic 2023-11-05 14:33:00 123 mm[Hg] Step hen F Joe BP Diastolic 2023-11-05 14:33:00 86 mm[Hg] Gabriele phen F Joe Weight Measured 2023-11-05 14:33:00 249.60 pounds Shawn F Joe Height Measured 2023-11-05 14:33:00 62.50 inches Shawn F Joe Body Temperature 2023-11-05 14:33:00 97.80 degrees Shawn F Joe Heart Rate 2023-11-05 14:33:00 100.00 /min Step hen F Joe Respiratory Rate 2023-11-05 14:33:00 Shawn F Joe BP Systolic 2023-10-22 08:45:00 126 mm[Hg] Step hen F Joe BP Diastolic 2023-10-22 08:45:00 96 mm[Hg] Gabriele phen F Joe Weight Measured 2023-10-22 08:45:00 250.00 pounds Shawn F Joe Height Measured 2023-10-22 08:45:00 62.50 inches Shawn F Joe Body Temperature 2023-10-22 08:45:00 98.20 degrees Shawn F Joe Heart Rate 2023-10-22 08:45:00 75.00 /min Adeline en F Joe Respiratory Rate 2023-10-22 08:45:00 19.00 /min Shawn F Joe BP Systolic 2023-10-14 08:28:00 140 mm[Hg] Step hen F Joe BP Diastolic 2023-10-14 08:28:00 102 mm[Hg] Gabriele phen F Joe Weight Measured 2023-10-14 08:28:00 247.20 pounds Shawn F Joe Height Measured 2023-10-14 08:28:00 62.50 inches Shawn F Joe Body Temperature 2023-10-14 08:28:00 97.40 degrees Shawn F Joe Heart Rate 2023-10-14 08:28:00 93.00 /min Adeline en F Joe Respiratory Rate 2023-10-14 08:28:00 Shawn F Joe BP Systolic 2023-09-24 08:28:00 139 mm[Hg] Step hen F Joe BP Diastolic 2023-09-24 08:28:00 95 mm[Hg] Gabriele phen F Joe Weight Measured 2023-09-24 08:28:00 253.20 pounds Shawn F Joe Height Measured 2023-09-24 08:28:00 62.50 inches Shawn F Joe Body Temperature 2023-09-24 08:28:00 97.40 degrees Shawn F Joe Heart Rate 2023-09-24 08:28:00 86.00 /min Adeline en F Joe Respiratory Rate 2023-09-24 08:28:00 Shawn F Joe Procedures Procedure Date / Time Performed Performing Clinicia n Source POCT TEST 2019-12-30 14:50:00 Dima Murillo [facility] DISCLOSURE AND CONSENT, MEDICAL AND SURGICAL PROCEDURES 2019-12-30 06:01:00 Doctor Unassigned, [place] [facility] Encounters Start Date/Time End Date/Time Encounter Type Admission Type Attending [facility] Care Department Encounter ID Source 2024-03-19 13:40:23 2024-03-19 13:40:23 Outpatient SFA SFA [id number] Shawn Diaz 2024-03-12 15:03:34 2024-03-12 15:03:34 Outpatient SFA SFA [id number] Shawn Diaz 2024-03-12 00:00:00 2024-03-12 00:00:00 Outpatient Visit SFA [id number] Shawn Diaz 2024-02-17 14:39:36 2024-02-17 14:39:36 Outpatient SFA SFA [id number] Shawn Diaz 2024-02-12 13:25:53 2024-02-12 13:25:53 Outpatient SFA SFA [id number] Shawn Diaz 2024-02-12 00:00:00 2024-02-12 00:00:00 Outpatient Visit SFA [id number] Shawn Diaz 2024-02-06 12:49:39 2024-02-06 12:49:39 Outpatient SFA SFA [id number] Shawn Diaz 2024-02-03 08:22:31 2024-02-03 08:22:31 Outpatient SFA SFA [id number] Shawn Diaz 2024-01-30 09:23:40 2024-01-30 09:23:40 Outpatient SFA SFA [id number] Shawn Diaz 2024-01-20 09:20:22 2024-01-20 09:20:22 Outpatient SFA SFA [id number] Shawn Diaz 2023-12-05 08:41:30 2023-12-05 08:41:30 Outpatient SFA SFA [id number] Shawn Diaz 2023-12-02 11:01:08 2023-12-02 11:01:08 Outpatient SFA SFA [id number] Shawn Diaz 2023-11-06 14:19:30 2023-11-06 14:19:30 Outpatient SFA SFA [id number] Shawn Diaz 2023-11-05 14:33:20 2023-11-05 14:33:20 Outpatient SFA SFA [id number] Shawn Diaz 2023-10-22 08:32:18 2023-10-22 08:32:18 Outpatient SFA SFA [id number] Shawn Diaz 2023-10-15 09:00:00 2023-10-15 09:55:54 Outpatient R MONA SIDDIQUI [facility] [id number] [facility] 2023-10-15 09:00:00 2023-10-15 09:55:54 Office Visit Mona Siddiqui [facility] [id number] [id number] [id number] [id number] [facility] 2023-10-14 08:18:21 2023-10-14 08:18:21 Outpatient SFA SFA [id number] Shawn Diaz 2023-10-11 00:00:00 2023-10-11 00:00:00 Telephone Leandra Murillo [facility] [id number] [id number] [id number] [id number] [facility] 2023-09-24 08:27:41 2023-09-24 08:27:41 Outpatient SFA SFA [id number] Shawn Diaz 2023-08-26 08:01:26 2023-08-26 08:01:26 Outpatient SFA SFA [id number] Shawn Diaz 2023-08-20 13:38:06 2023-08-20 13:38:06 Outpatient SFA SFA [id number] Shawn Diaz 2023-08-12 11:08:38 2023-08-12 11:08:38 Outpatient SFA SFA [id number] Shawn Diaz 2023-05-01 10:32:15 2023-05-01 10:32:15 Outpatient SFA SFA [id number] Shawn Diaz 2023-04-25 14:20:25 2023-04-25 14:20:25 Outpatient SFA SFA [id number] Shawn Diaz 2023-04-15 08:11:32 2023-04-15 08:11:32 Outpatient SFA SFA [id number] Shawn Diaz 2023-02-19 09:00:17 2023-02-19 09:00:17 Outpatient SFA SFA [id number] Shawn Diaz 2023-02-14 10:11:47 2023-02-14 10:11:47 Outpatient SFA SFA [id number] Shawn Diaz 2023-01-25 13:49:37 2023-01-25 13:49:37 Outpatient SFA SFA [id number] Shawn Diaz 2023-01-16 09:12:58 2023-01-16 09:12:58 Outpatient SFA SFA [id number] Shawn Diaz 2023-01-09 08:40:49 2023-01-09 08:40:49 Outpatient SFA SFA [id number] Shawn Diaz 2023-01-08 16:12:51 2023-01-08 16:12:51 Outpatient SFA SFA [id number] Shawn Diaz 2022-11-21 09:48:07 2022-11-21 09:48:07 Outpatient SFA SFA [id number] Shawn Diaz 2022-11-13 08:39:29 2022-11-13 08:39:29 Outpatient SFA SFA [id number] Shawn Diaz 2022-10-02 08:19:55 2022-10-02 08:19:55 Outpatient SFA SFA [id number] Shawn Diaz 2021-01-17 15:10:00 2021-01-17 15:10:00 Outpatient RALPH PORRAS [facility] [id number] [facility] 2020-12-27 17:00:00 2020-12-27 17:00:00 Outpatient R RALPH CRISTOBAL [facility] [id number] [facility] 2020-02-11 14:40:00 2020-02-11 14:40:00 Outpatient R SARA QUARLES [facility] [id number] [facility] 2020-01-28 17:24:32 2020-01-28 17:34:32 Telemedici ne Visit Sara Quarles [facility] 1.0.114 350.1.13.10 [id number] [id number] [facility] 2019-12-31 14:23:03 2020-01-14 10:11:31 Office Visit Elyssa Louise Lindy Skye [facility] 1.0.114 350.1.13.10 [id number] [id number] [facility] 2020-01-13 08:30:00 2020-01-13 08:30:00 Outpatient R [facility] [id number] [facility] 2019-12-31 14:50:00 2019-12-31 14:50:00 Outpatient LILIANA DIA [facility] [id number] [facility] 2019-12-30 08:37:34 2019-12-30 09:18:24 Office Visit Leandra Murillo [facility] 1.840.114 [id number] [id number] [id number] [facility] 2019-12-30 08:15:00 2019-12-30 08:15:00 Outpatient LEANDRA MARROQUIN [facility] [id number] [facility] 2019-12-30 07:45:00 2019-12-30 07:45:00 Outpatient LEANDRA MARROQUIN [facility] [id number] [facility] 2019-12-30 00:00:00 2019-12-30 00:00:00 Orders Only Doctor Unassigned, [place] [facility] 1..114 350.1.13.10 [id number] [id number] [facility] 2019-12-03 14:16:05 2019-12-08 13:33:07 Office Visit Elyssa Louise Brandon P [facility] 1..114 [id number] [id number] [id number] [facility] Results Test Description Test Time Test Comments Results Result Co mments Source Shawn DiazCOMPREHENSIVE METABOLIC [id number] 03:45:44* Test Item Value Reference Range Interpretation Comme nts GLUCOSE (test code = 2217) 217 MG/DL 70-99 H BUN (test code = 2208) 9 MG/DL 6-20 CREATININE (test code = 2214) 0.60 MG/DL 0.60-1.30 eGFR (2020 CKD-EPI) (test code = 84017) 115 ML/MIN/1.73 >60 CALC BUN/CREAT (test code = 2235) 15 RATIO 6-28 SODIUM (test code = 2231) 136 MEQ/L 133-146 POTASSIUM (test code = 2228) 4.6 MEQ/L 3.5-5.4 CHLORIDE (test code = 2215) 100 MEQ/L 95-107 CARBON DIOXIDE (test code = 2206) 21 MEQ/L 19-31 CALCIUM (test code = 2209) 9.6 MG/DL 8.5-10.5 PROTEIN, TOTAL (test code = 2229) 7.3 G/DL 6.1-8.3 ALBUMIN (test code = 2201) 4.7 G/DL 3.5-5.2 CALC GLOBULIN (test code = 2240) 2.6 G/DL 1.9-3.7 CALC A/G RATIO (test code = 2234) 1.8 RATIO 1.0-2.6 BILIRUBIN, TOTAL (test code = 2207) 0.4 MG/DL <=1.2 ALKALINE PHOSPHATASE (test code = 2204) 129 U/L 40-113 H AST (test code = 2218) 44 U/L 9-40 H ALT (test code = 2219) 57 U/L 5-40 H LIPID [id number] 03:45:44* Test Item Value Reference Range Interpretation Comme nts CHOLESTEROL (test code = 2210) 114 MG/DL <200 TRIGLYCERIDES (test code = 2232) 140 MG/DL <150 HDL CHOLESTEROL (test code = 2220) 33 MG/DL >39 L CALC LDL CHOL (test code = 2237) 59 MG/DL <100 NOTE: CALCULATED LDL IS BASED ON KORI-WALKER METHOD WHICHINCLUDES ADJUSTABLE TRIGLYCERIDE:VLDL CHOLESTEROL RATIO.THIS FACTOR VARIES BY MEASURED TRIGLYCERIDE AND NON-HDLCHOLESTEROL CONCENTRATIONS WITH INCREASED CALCULATED LDL SEENIN HIGHER TRIGLYCERIDE OR LOWER NON-HDL SPECIMENS. FOR MOREINFORMATION, SEE CLIENT ANNOUNCEMENT AT [email or web address] [email or web address] RATIO LDL/HDL (test code = 2238) 1.79 RATIO <3.22 UNLESS OTHERW ISE INDICATED, ALL TESTING PERFORMED AT [facility] [address] [place] [address] FRONT MAKER LOCKSTITCH: WING TOWNSEND M.D. CLIA NUMBER [id number] [facility] [place]. [id number] LIPID [id number] 00:00:00* Test Item Value Reference Range Interpretation Comme nts CHOLESTEROL (test code = 2210) 114 MG/DL TRIGLYCERIDES (test code = 2232) 140 MG/DL HDL CHOLESTEROL (test code = 2220) 33 MG/DL CALC LDL CHOL (test code = 2237) 59 MG/DL RISK RATIO LDL/HDL (test cod e = 2238) 1.79 RATIO Shawn Megan JoeCOMPREHENSIVE METABOLIC [id number] 00:00:00* Test Item Value Reference Range Interpretation Comme nts GLUCOSE (test code = 2217) 217 MG/DL BUN (test code = 2208) 9 MG/DL CREATININE (test code = 2214) 0.60 MG/DL eGFR (2020 CKD-EPI) (test code = 70309) 115 ML/MIN/1.73 CALC BUN/CREAT (test code = 2235) 15 RATIO SODIUM (test code = 2231) 136 MEQ/L POTASSIUM (test code = 2228) 4.6 MEQ/L CHLORIDE (test code = 2215) 100 MEQ/L CARBON DIOXIDE (test code = 2206) 21 MEQ/L CALCIUM (test code = 2209) 9.6 MG/DL PROTEIN, TOTAL (test code = 2229) 7.3 G/DL ALBUMIN (test code = 2201) 4.7 G/DL CALC GLOBULIN (test code = 2240) 2.6 G/DL CALC A/G RATIO (test code = 2234) 1.8 RATIO BILIRUBIN, TOTAL (test code = 2207) 0.4 MG/DL ALKALINE PHOSPHATASE (test code = 2204) 129 U/L AST (test code = 2218) 44 U/L ALT (test code = 2219) 57 U/L Shawn DiazLIPID [id number] 00:00:00* Test Item Value Reference Range Interpretation Comme nts CHOLESTEROL (test code = 2210) 114 MG/DL TRIGLYCERIDES (test code = 2232) 140 MG/DL HDL CHOLESTEROL (test code = 2220) 33 MG/DL CALC LDL CHOL (test code = 2237) 59 MG/DL RISK RATIO LDL/HDL (test cod e = 2238) 1.79 RATIO Shawn Guzman JoeCOMPREHENSIVE METABOLIC [id number] 00:00:00* Test Item Value Reference Range Interpretation Comme nts GLUCOSE (test code = 2217) 217 MG/DL BUN (test code = 2208) 9 MG/DL CREATININE (test code = 2214) 0.60 MG/DL eGFR (2020 CKD-EPI) (test code = 26839) 115 ML/MIN/1.73 CALC BUN/CREAT (test code = 2235) 15 RATIO SODIUM (test code = 2231) 136 MEQ/L POTASSIUM (test code = 2228) 4.6 MEQ/L CHLORIDE (test code = 2215) 100 MEQ/L CARBON DIOXIDE (test code = 2206) 21 MEQ/L CALCIUM (test code = 2209) 9.6 MG/DL PROTEIN, TOTAL (test code = 2229) 7.3 G/DL ALBUMIN (test code = 2201) 4.7 G/DL CALC GLOBULIN (test code = 2240) 2.6 G/DL CALC A/G RATIO (test code = 2234) 1.8 RATIO BILIRUBIN, TOTAL (test code = 2207) 0.4 MG/DL ALKALINE PHOSPHATASE (test code = 2204) 129 U/L AST (test code = 2218) 44 U/L ALT (test code = 2219) 57 U/L Shawn Guzman AustinHEMOGLOBIN [id number] 00:00:00* Test Item Value Reference Range Interpretation Comme nts HEMOGLOBIN A1c (test code = 42373) 9.6 % Shawn Guzman AustinVAGINAL PATHOGENS DNA [id number] 00:00:00* Test Item Value Reference Range Interpretation Comme nts JAEL SPECIES (test code = ) POSITIVE G. VAGINALIS (test code = 01266) NEGATIVE T. VAGINALIS (test code = 03384) NEGATIVE Shawn Guzman AustinHEMOGLOBIN [id number] 00:00:00* Test Item Value Reference Range Interpretation Comme nts HEMOGLOBIN A1c (test code = 41677) 9.6 % Shawn Guzman AustinVAGINAL PATHOGENS DNA [id number] 00:00:00* Test Item Value Reference Range Interpretation Comme nts JAEL SPECIES (test code = ) POSITIVE G. VAGINALIS (test code = 49328) NEGATIVE T. VAGINALIS (test code = 69237) NEGATIVE Shawn Guzman AustinH. PYLORI (BREATH)2024-01-21 15:13:05* Test Item Value Reference Range Interpretation Comme nts H. PYLORI (BREATH) (test code = 89697) POSITIVE NEGATIVE A UNLESS OTHER CASTILLO INDICATED, ALL TESTING PERFORMED AT [facility] [address] [place] [address] FRONT MAKER LOCKSTITCH: WING TOWNSEND M.D. IA NUMBER [id number] [facility] [place]. [id number] H. PYLORI (BREATH)2024-01-21 00:00:00* Test Item Value Reference Range Interpretation Comme nts H. PYLORI (BREATH) (test cod e = 49354) POSITIVE Shawn Guzman AustinH. PYLORI (BREATH)2024-01-21 00:00:00* Test Item Value Reference Range Interpretation Comme nts H. PYLORI (BREATH) (test cod e = 33618) POSITIVE Shawn Guzman AustinHEMOGLOBIN [id number] 08:06:04* Test Item Value Reference Range Interpretation Comme nts HEMOGLOBIN A1c (test code = 85130) 11.0 % 4.2-5.6 H [employer] GUIDELINES FOR HGB A1C: PREDIABETES/INCREASED RISK . . . . . . . 5.7-6.4% DIAGNOSIS OF DIABETES . . . . . . . . . >=6.5% WITH CONFIRMATION OR APPROPRIATE SYMPTOMS NOTE: ASSAY MAY BE AFFECTED BY HEMOGLOBINOPATHIES (SICKLE CELL ANEMIA, S-C DISEASE, OTHERS) OR ARTIFICIALLY LOWERED BY DECREASED RED CELL SURVIVAL (HEMOLYTIC ANEMIAS, BLOOD LOSS, ETC.). CONSIDER ALTERNATE TESTING OR LABORATORY CONSULTATION. LIPID [id number] 06:31:01* Test Item Value Reference Range Interpretation Comme nts CHOLESTEROL (test code = 2210) 104 MG/DL <200 TRIGLYCERIDES (test code = 2232) 153 MG/DL <150 H HDL CHOLESTEROL (test code = 2220) 32 MG/DL >39 L CALC LDL CHOL (test code = 2237) 48 MG/DL <100 NOTE: CALCULATED LDL IS BASED ON KORI-WALKER METHOD WHICHINCLUDES ADJUSTABLE TRIGLYCERIDE:VLDL CHOLESTEROL RATIO.THIS FACTOR VARIES BY MEASURED TRIGLYCERIDE AND NON-HDLCHOLESTEROL CONCENTRATIONS WITH INCREASED CALCULATED LDL SEENIN HIGHER TRIGLYCERIDE OR LOWER NON-HDL SPECIMENS. FOR MOREINFORMATION, SEE CLIENT ANNOUNCEMENT AT [email or web address] RISK RATIO LDL/HDL (test code = 2238) 1.50 RATIO <3.22 COMPREHENSIVE METABOLIC [id number] 06:31:01* Test Item Value Reference Range Interpretation Comme nts GLUCOSE (test code = 2217) 230 MG/DL 70-99 H BUN (test code = 2208) 9 MG/DL 6-20 CREATININE (test code = 2214) 0.53 MG/DL 0.60-1.30 L eGFR (2020 CKD-EPI) (test code = 26878) 119 ML/MIN/1.73 >60 CALC BUN/CREAT (test code = 2235) 17 RATIO 6-28 SODIUM (test code = 2231) 137 MEQ/L 133-146 POTASSIUM (test code = 2228) 4.5 MEQ/L 3.5-5.4 CHLORIDE (test code = 2215) 101 MEQ/L 95-107 CARBON DIOXIDE (test code = 2206) 23 MEQ/L 19-31 CALCIUM (test code = 2209) 9.7 MG/DL 8.5-10.5 PROTEIN, TOTAL (test code = 2229) 7.4 G/DL 6.1-8.3 ALBUMIN (test code = 220) 4.7 G/DL 3.5-5.2 CALC GLOBULIN (test code = 2240) 2.7 G/DL 1.9-3.7 CALC A/G RATIO (test code = 2234) 1.7 RATIO 1.0-2.6 BILIRUBIN, TOTAL (test code = 2206) 0.5 MG/DL <=1.2 ALKALINE PHOSPHATASE (test code = 2203) 118 U/L 40-113 H AST (test code = 2218) 52 U/L 9-40 H ALT (test code = 2218) 60 U/L 5-40 H ALBUMIN/CREATININE RATIO, URINE, [id number] 06:19:44* Test Item Value Reference Range Interpretation Comme nts CREATININE, URINE, CONC. (test code = 2072) 124.4 MG/DL NOT ESTAB ALBUMIN, URINE, RANDOM (test code = 29977) 0.4 MG/DL NOT ESTAB CALC ALBUMIN/CREAT, RND (test code = 05858) 3 MG/G <30 Note: Albumin/Cr eatinine ratio reference interval reflects ADA and NKF guidelines. UNLESS OTHERWISE INDICATED, ALL TESTING PERFORMED AT [facility] [address] [place] [address] FRONT MAKER LOCKSTITCH: WING TOWNSEND M.D. CLIA NUMBER [id number] [facility] [place]. [id number] LIPID [id number] 00:00:00* Test Item Value Reference Range Interpretation Comme nts CHOLESTEROL (test code = 2210) 104 MG/DL TRIGLYCERIDES (test code = 2232) 153 MG/DL HDL CHOLESTEROL (test code = 2220) 32 MG/DL CALC LDL CHOL (test code = 2237) 48 MG/DL RISK RATIO LDL/HDL (test cod e = 2238) 1.50 RATIO Shawn DiazCOMPREHENSIVE METABOLIC [id number] 00:00:00* Test Item Value Reference Range Interpretation Comme nts GLUCOSE (test code = 7) 230 MG/DL BUN (test code = 2207) 9 MG/DL CREATININE (test code = 2214) 0.53 MG/DL eGFR (2020 CKD-EPI) (test code = 93775) 119 ML/MIN/1.73 CALC BUN/CREAT (test code = 2235) 17 RATIO SODIUM (test code = 2231) 137 MEQ/L POTASSIUM (test code = 2228) 4.5 MEQ/L CHLORIDE (test code = 2215) 101 MEQ/L CARBON DIOXIDE (test code = 2206) 23 MEQ/L CALCIUM (test code = 2209) 9.7 MG/DL PROTEIN, TOTAL (test code = 222) 7.4 G/DL ALBUMIN (test code = 220) 4.7 G/DL CALC GLOBULIN (test code = 2240) 2.7 G/DL CALC A/G RATIO (test code = 2234) 1.7 RATIO BILIRUBIN, TOTAL (test code = 2207) 0.5 MG/DL ALKALINE PHOSPHATASE (test code = 2203) 118 U/L AST (test code = 221) 52 U/L ALT (test code = 2219) 60 U/L Shawn DiazALBUMIN/CREATININE RATIO, RANDOM [id number] 00:00:00* Test Item Value Reference Range Interpretation Comme nts CREATININE, URINE, CONC. (te st code = 2072) 124.4 MG/DL ALBUMIN, URINE, RANDOM (test code = 02079) 0.4 MG/DL CALC ALBUMIN/CREAT, RND (selam t code = 80921) 3 MG/G Shawn DiazHEMOGLOBIN [id number] 00:00:00* Test Item Value Reference Range Interpretation Comme nts HEMOGLOBIN A1c (test code = 73963) 11.0 % Shawn DiazLIPID [id number] 00:00:00* Test Item Value Reference Range Interpretation Comme nts CHOLESTEROL (test code = 2210) 104 MG/DL TRIGLYCERIDES (test code = 2232) 153 MG/DL HDL CHOLESTEROL (test code = 2220) 32 MG/DL CALC LDL CHOL (test code = 2237) 48 MG/DL RISK RATIO LDL/HDL (test cod e = 2238) 1.50 RATIO Shawn DiazCOMPREHENSIVE METABOLIC [id number] 00:00:00* Test Item Value Reference Range Interpretation Comme nts GLUCOSE (test code = 2217) 230 MG/DL BUN (test code = 2208) 9 MG/DL CREATININE (test code = 2214) 0.53 MG/DL eGFR (2020 CKD-EPI) (test code = 66723) 119 ML/MIN/1.73 CALC BUN/CREAT (test code = 2235) 17 RATIO SODIUM (test code = 223) 137 MEQ/L POTASSIUM (test code = 2228) 4.5 MEQ/L CHLORIDE (test code = 2215) 101 MEQ/L CARBON DIOXIDE (test code = 2206) 23 MEQ/L CALCIUM (test code = 2209) 9.7 MG/DL PROTEIN, TOTAL (test code = 222) 7.4 G/DL ALBUMIN (test code = 2201) 4.7 G/DL CALC GLOBULIN (test code = 2240) 2.7 G/DL CALC A/G RATIO (test code = 2234) 1.7 RATIO BILIRUBIN, TOTAL (test code = 7) 0.5 MG/DL ALKALINE PHOSPHATASE (test code = 2203) 118 U/L AST (test code = 2217) 52 U/L ALT (test code = 221) 60 U/L Shawn DiazALBUMIN/CREATININE RATIO, RANDOM [id number] 00:00:00* Test Item Value Reference Range Interpretation Comme nts CREATININE, URINE, CONC. (te st code = 2072) 124.4 MG/DL ALBUMIN, URINE, RANDOM (test code = 42408) 0.4 MG/DL CALC ALBUMIN/CREAT, RND (selam t code = 34087) 3 MG/G Shawn DiazHEMOGLOBIN [id number] 00:00:00* Test Item Value Reference Range Interpretation Comme nts HEMOGLOBIN A1c (test code = 03231) 11.0 % Shawn DiazCT/NG, NAAT, [id number] 17:25:28* Test Item Value Reference Range Interpretation Comme nts CHLAMYDIA, NAAT, URINE (test code = 54513) NEGATIVE NEGATIVE Testing is perfo rmed with Smiley SCAR 6800/8800 systems usingreal-time polymerase chain reaction (PCR) method. A negative result does not exclude low level infection, specimensampling error, or collection error. GONORRHEA, NAAT, URINE (test code = 65481) NEGATIVE NEGATIVE Testing is perfo rmed with Smiley SCAR 6800/8800 systems usingreal-time polymerase chain reaction (PCR) method. A negative result does not exclude low level infection, specimensampling error, or collection error. TRICHOMONAS, NAAT, [id number] 15:02:51* Test Item Value Reference Range Interpretation Comme nts TRICHOMONAS, NAAT, URINE (test code = 38691) NEGATIVE NEGATIVE Testing is perfo rmed with Smiley SCAR 6800/8800 method usingreal-time polymerase chain reaction (PCR) method. A negative result does not exclude low level infection, specimensampling error, or collection error. UNLESS OTHERWISE INDICATED, ALL TESTING PERFORMED AT [facility] [address] [place] [address] FRONT [employer] LOCKSTITCH: WING TOWNSEND M.D. CLIA NUMBER [id number] [facility] [place]. [id number] CT/NG, TMA, [id number] 00:00:00* Test Item Value Reference Range Interpretation Comme nts CHLAMYDIA, NAAT, URINE (test code = 64852) NEGATIVE GONORRHEA, NAAT, URINE (test code = 38131) NEGATIVE Shawn Megan AustinTRICHOMONAS, URINE, [id number] 00:00:00* Test Item Value Reference Range Interpretation Comme nts TRICHOMONAS, NAAT, URINE (te st code = 22973) NEGATIVE Shawn Megan AustinCT/NG, TMA, [id number] 00:00:00* Test Item Value Reference Range Interpretation Comme nts CHLAMYDIA, NAAT, URINE (test code = 67026) NEGATIVE GONORRHEA, NAAT, URINE (test code = 39621) NEGATIVE Shawn F AustinTRICHOMONAS, URINE, [id number] 00:00:00* Test Item Value Reference Range Interpretation Comme nts TRICHOMONAS, NAAT, URINE (te st code = 00573) NEGATIVE Shawn F AustinHEMOGLOBIN [id number] 17:24:55* Test Item Value Reference Range Interpretation Comme nts HEMOGLOBIN A1c (test code = 80102) TEST NOT PERFORMED % 4.2-5.6 Unable to perform testing, specimen not received.Charges adjusted as applicable. HEMOGLOBIN [id number] 00:00:00* Test Item Value Reference Range Interpretation Comme nts HEMOGLOBIN A1c (test code = 12455) TEST NOT PERFORMED % Shawn F AustinHEMOGLOBIN [id number] 00:00:00* Test Item Value Reference Range Interpretation Comme nts HEMOGLOBIN A1c (test code = 25430) TEST NOT PERFORMED % Shawn Allen, [id number] 12:53:40SPECIMEN NUMBER: [id number] CULTURE, URINE SPECIMEN NUMBER: [id number] SPECIMEN COMMENT: URINE SOURCE: URINE REPORT STATUS: FINAL ISOLATE NUMBER 1: ORGANISM: 10/16/2023 >100,000 CFU/ML GRAM NEGATIVE BACILLI IDENTIFICATION: 10/17/2023 KLEBSIELLA PNEUMONIAE K. PNEUMONIAE AMOXICILLIN/CA SENSITIVE <=8/4AMPICILLIN RESISTANT >16CEFAZOLIN SENSITIVE <=2CEFTRIAXONE SENSITIVE <=1CIPROFLOXACIN SENSITIVE <=1LEVOFLOXACIN SENSITIVE <=2NITROFURANTOIN SENSITIVE <=32PIP/TAZOBAC SENSITIVE <=16TETRACYCLINE SENSITIVE <=4TOBRAMYCIN SENSITIVE <=4TRIMETH/SULFA SENSITIVE <=2/38 NOTE: NUMBERS DISPLAYED REPRESENT MINIMUM INHIBITORY CONCENTRATION (AMADOU) WHICH IS EXPRESSED IN MCG/ML.CULTURE, [id number] 00:00:00* Test Item Value Reference Range Interpretation Comme nts CULTURE, URINE (test code = 00493) SPECIMEN NUMBER: [id number] Shawn Allen, [id number] 00:00:00* Test Item Value Reference Range Interpretation Comme nts CULTURE, URINE (test code = 17003) SPECIMEN NUMBER: [id number] Shawn DiazVAGINAL PATHOGENS DNA [id number] 12:03:58* Test Item Value Reference Range Interpretation Comme nts JAEL SPECIES (test code = 47227) POSITIVE NEGATIVE A G. VAGINALIS (test code = 21406) POSITIVE NEGATIVE A T. VAGINALIS (test code = 78045) NEGATIVE NEGATIVE Note: The BD [facility] ir VPIII Microbial Identification Testis a DNA probe test intended for use in the detectionand identification of Jael species, Gardnerellavaginalis and Trichomonas vaginalis nucleic acid. MICROSCOPIC [id number] 02:46:44* Test Item Value Reference Range Interpretation Comme nts WHITE BLOOD CELLS (test code = 1513) 0-5 /HPF 0-5 RED BLOOD CELLS (test code = 1514) 0-2 /HPF 0-2 EPITHELIAL CELLS (test code = 59440) 0-5 /HPF 0-10 BACTERIA (test code = 1515) 3+ NONE SEEN A CASTS, HYALINE (test code = 1517) NONE SEEN NONE-TRACE UNLESS OTHERWISE INDICATED, ALL TESTING PERFORMED AT [facility] [address] [place] [address] FRONT MAKER LOCKSTITCH: WING TOWNSEND M.D. CLIA NUMBER [id number] [facility]. [id number] VAGINAL PATHOGENS DNA [id number] 00:00:00* Test Item Value Reference Range Interpretation Comme nts JAEL SPECIES (test code = ) POSITIVE G. VAGINALIS (test code = 48278) POSITIVE T. VAGINALIS (test code = 11146) NEGATIVE Shawn Guzman AustinMICROSCOPIC [id number] 00:00:00* Test Item Value Reference Range Interpretation Comme nts WHITE BLOOD CELLS (test code = 1513) 0-5 /HPF RED BLOOD CELLS (test code = 1514) 0-2 /HPF EPITHELIAL CELLS (test code = 53085) 0-5 /HPF BACTERIA (test code = 1515) 3+ CASTS, HYALINE (test code = 1517) NONE SEEN Shawn Guzman AustinVAGINAL PATHOGENS DNA [id number] 00:00:00* Test Item Value Reference Range Interpretation Comme nts JAEL SPECIES (test code = ) POSITIVE G. VAGINALIS (test code = 04778) POSITIVE T. VAGINALIS (test code = ) NEGATIVE Shawn Guzman AustinMICROSCOPIC [id number] 00:00:00* Test Item Value Reference Range Interpretation Comme nts WHITE BLOOD CELLS (test code = 1513) 0-5 /HPF RED BLOOD CELLS (test code = 1514) 0-2 /HPF EPITHELIAL CELLS (test code = 18951) 0-5 /HPF BACTERIA (test code = 1515) 3+ CASTS, HYALINE (test code = 1517) NONE SEEN Shawn DiazCULTOUMOU, [id number] 14:36:28SPECIMEN NUMBER: [id number] CULTURE, URINE SPECIMEN NUMBER: [id number] SPECIMEN COMMENT: URINE SOURCE: URINE REPORT STATUS: FINAL ISOLATE NUMBER 1: ORGANISM: 09/26/2023 <10,000 CFU/ML YEAST ADDITIONAL OBSERVATIONS: 09/26/2023 10-50,000 CFU/ML UROGENITAL RENEE PRESENT NO COMMON PATHOGENSCULTURE, [id number] 00:00:00* Test Item Value Reference Range Interpretation Comme nts CULTURE, URINE (test code = 23290) SPECIMEN NUMBER: [id number] Shawn DiazCULTURE, [id number] 00:00:00* Test Item Value Reference Range Interpretation Comme nts CULTURE, URINE (test code = 20641) SPECIMEN NUMBER: [id number] Shawn DiazVAGINAL PATHOGENS DNA [id number] 16:54:34* Test Item Value Reference Range Interpretation Comme nts JAEL SPECIES (test code = 66836) POSITIVE NEGATIVE A G. VAGINALIS (test code = 00298) NEGATIVE NEGATIVE T. VAGINALIS (test code = 45153) NEGATIVE NEGATIVE Note: The [employer] irSearch123 VPIII Microbial Identification Testis a DNA probe test intended for use in the detectionand identification of Jael species, Gardnerellavaginalis and Trichomonas vaginalis nucleic acid. URINALYSIS WITH [id number] 03:42:45* Test Item Value Reference Range Interpretation Comme nts COLOR (test code = 1501) YELLOW YELLOW-STRAW APPEARANCE (test code = 1502) CLOUDY CLEAR A SPECIFIC GRAVITY (test code = 1503) 1.043 1.005-1.035 H LEUKOCYTE ESTERASE (test code = 1504) NEGATIVE NEGATIVE NITRITE (test code = 1505) NEGATIVE NEGATIVE pH (test code = 1506) 5.5 5.0-9.0 PROTEIN (test code = 1507) TRACE NEGATIVE A GLUCOSE (test code = 1508) 3+ NEGATIVE A KETONES (test code = 1509) 1+ NEGATIVE A UROBILINOGEN (test code = 1510) 0.2 MG/DL <=2.0 BILIRUBIN (test code = 1511) NEGATIVE NEGATIVE OCCULT BLOOD (test code = 1512) 3+ NEGATIVE A WHITE BLOOD CELLS (test code = 1513) 6-10 /HPF 0-5 A RED BLOOD CELLS (test code = 1514) >50 /HPF 0-2 A EPITHELIAL CELLS (test code = 50079) 0-5 /HPF 0-10 BACTERIA (test code = 1515) NONE SEEN NONE SEEN CASTS, HYALINE (test code = 1517) NONE SEEN NONE-TRACE OTHER (test code = 1518) PRESENT A YEAST UNLESS OTH ERWISE INDICATED, ALL TESTING PERFORMED AT [facility] [address] [place] [address] FRONT MAKER LOCKSTITCH: WING TOWNSEND M.D. CLIA NUMBER [id number] [facility] [place] [place]. [id number] VAGINAL PATHOGENS DNA [id number] 00:00:00* Test Item Value Reference Range Interpretation Comme nts JAEL SPECIES (test code = ) POSITIVE G. VAGINALIS (test code = 82285) NEGATIVE T. VAGINALIS (test code = ) NEGATIVE Shawn Guzman AustinURINALYSIS WITH [id number] 00:00:00* Test Item Value Reference Range Interpretation Comme nts COLOR (test code = 1501) YELLOW APPEARANCE (test code = 1502) CLOUDY SPECIFIC GRAVITY (test code = 1503) 1.043 LEUKOCYTE ESTERASE (test cod e = 1504) NEGATIVE NITRITE (test code = 1505) NEGATIVE pH (test code = 1506) 5.5 PROTEIN (test code = 1507) TRACE GLUCOSE (test code = 1508) 3+ KETONES (test code = 1509) 1+ UROBILINOGEN (test code = 1510) 0.2 MG/DL BILIRUBIN (test code = 1511) NEGATIVE OCCULT BLOOD (test code = 1512) 3+ WHITE BLOOD CELLS (test code = 1513) 6-10 /HPF RED BLOOD CELLS (test code = 1514) >50 /HPF EPITHELIAL CELLS (test code = 24093) 0-5 /HPF BACTERIA (test code = 1515) NONE SEEN CASTS, HYALINE (test code = 1517) NONE SEEN OTHER (test code = 1518) PRESENT Shawn Guzman AustinVAGINAL PATHOGENS DNA [id number] 00:00:00* Test Item Value Reference Range Interpretation Comme nts JAEL SPECIES (test code = ) POSITIVE G. VAGINALIS (test code = 35966) NEGATIVE T. VAGINALIS (test code = 99932) NEGATIVE Shawn Guzman AustinURINALYSIS WITH [id number] 00:00:00* Test Item Value Reference Range Interpretation Comme nts COLOR (test code = 1501) YELLOW APPEARANCE (test code = 1502) CLOUDY SPECIFIC GRAVITY (test code = 1503) 1.043 LEUKOCYTE ESTERASE (test cod e = 1504) NEGATIVE NITRITE (test code = 1505) NEGATIVE pH (test code = 1506) 5.5 PROTEIN (test code = 1507) TRACE GLUCOSE (test code = 1508) 3+ KETONES (test code = 1509) 1+ UROBILINOGEN (test code = 1510) 0.2 MG/DL BILIRUBIN (test code = 1511) NEGATIVE OCCULT BLOOD (test code = 1512) 3+ WHITE BLOOD CELLS (test code = 1513) 6-10 /HPF RED BLOOD CELLS (test code = 1514) >50 /HPF EPITHELIAL CELLS (test code = 54791) 0-5 /HPF BACTERIA (test code = 1515) NONE SEEN CASTS, HYALINE (test code = 1517) NONE SEEN OTHER (test code = 1518) PRESENT Shawn DiazALBUMIN/CREATININE RATIO, URINE, [id number] 06:54:10* Test Item Value Reference Range Interpretation Comme nts CREATININE, URINE, CONC. (test code = 2072) 214.9 MG/DL NOT ESTAB ALBUMIN, URINE, RANDOM (test code = 86143) 0.7 MG/DL NOT ESTAB CALC ALBUMIN/CREAT, RND (test code = 25673) 3 MG/G <30 Note: Albumin/Cr eatinine ratio reference interval reflects ADA and NKF guidelines. UNLESS OTHERWISE INDICATED, ALL TESTING PERFORMED AT [facility] [address] [place] [address] FRONT MAKER LOCKSTITCH: WING TOWNSEND M.D. CLIA NUMBER [id number] [facility] [place]. [id number] COMPREHENSIVE METABOLIC [id number] 04:58:31* Test Item Value Reference Range Interpretation Comme nts GLUCOSE (test code = 2217) 256 MG/DL 70-99 H BUN (test code = 2208) 10 MG/DL 6-20 CREATININE (test code = 2214) 0.54 MG/DL 0.60-1.30 L eGFR (2020 CKD-EPI) (test code = 21024) 119 ML/MIN/1.73 >60 CALC BUN/CREAT (test code = 2235) 19 RATIO 6-28 SODIUM (test code = 2231) 135 MEQ/L 133-146 POTASSIUM (test code = 2228) 4.8 MEQ/L 3.5-5.4 CHLORIDE (test code = 2215) 100 MEQ/L 95-107 CARBON DIOXIDE (test code = 2206) 23 MEQ/L 19-31 CALCIUM (test code = 2209) 9.7 MG/DL 8.5-10.5 PROTEIN, TOTAL (test code = 9) 7.4 G/DL 6.1-8.3 ALBUMIN (test code = 1) 4.3 G/DL 3.5-5.2 CALC GLOBULIN (test code = 2240) 3.1 G/DL 1.9-3.7 CALC A/G RATIO (test code = 2234) 1.4 RATIO 1.0-2.6 BILIRUBIN, TOTAL (test code = 2206) 0.2 MG/DL <=1.2 ALKALINE PHOSPHATASE (test code = 2203) 104 U/L 40-113 AST (test code = 2218) 26 U/L 9-40 ALT (test code = 221) 40 U/L 5-40 LIPID [id number] 04:58:31* Test Item Value Reference Range Interpretation Comme nts CHOLESTEROL (test code = 0) 175 MG/DL <200 TRIGLYCERIDES (test code = 2) 136 MG/DL <150 HDL CHOLESTEROL (test code = 0) 43 MG/DL >39 CALC LDL CHOL (test code = 2236) 107 MG/DL <100 H NOTE: CALCULATED LDL IS BASED ON KORI-WALKER METHOD WHICHINCLUDES ADJUSTABLE TRIGLYCERIDE:VLDL CHOLESTEROL RATIO.THIS FACTOR VARIES BY MEASURED TRIGLYCERIDE AND NON-HDLCHOLESTEROL CONCENTRATIONS WITH INCREASED CALCULATED LDL SEENIN HIGHER TRIGLYCERIDE OR LOWER NON-HDL SPECIMENS. FOR MOREINFORMATION, SEE CLIENT ANNOUNCEMENT AT [email or web address] [email or web address] RATIO LDL/HDL (test code = 2238) 2.49 RATIO <3.22 HEMOGLOBIN [id number] 02:26:17* Test Item Value Reference Range Interpretation Comme nts HEMOGLOBIN A1c (test code = 35127) 8.7 % 4.2-5.6 H [employer] GUIDELINES FOR HGB A1C: PREDIABETES/INCREASED RISK . . . . . . . 5.7-6.4% DIAGNOSIS OF DIABETES . . . . . . . . . >=6.5% WITH CONFIRMATION OR APPROPRIATE SYMPTOMS NOTE: ASSAY MAY BE AFFECTED BY HEMOGLOBINOPATHIES (SICKLE CELL ANEMIA, S-C DISEASE, OTHERS) OR ARTIFICIALLY LOWERED BY DECREASED RED CELL SURVIVAL (HEMOLYTIC ANEMIAS, BLOOD LOSS, ETC.). CONSIDER ALTERNATE TESTING OR LABORATORY CONSULTATION. LIPID [id number] 00:00:00* Test Item Value Reference Range Interpretation Comme nts CHOLESTEROL (test code = 2210) 175 MG/DL TRIGLYCERIDES (test code = 2232) 136 MG/DL HDL CHOLESTEROL (test code = 2220) 43 MG/DL CALC LDL CHOL (test code = 2237) 107 MG/DL RISK RATIO LDL/HDL (test cod e = 2238) 2.49 RATIO Shawn DiazHEMOGLOBIN [id number] 00:00:00* Test Item Value Reference Range Interpretation Comme suzy HEMOGLOBIN A1c (test code = 27717) 8.7 % Shawn Guzman AustinALBUMIN/CREATININE RATIO, RANDOM [id number] 00:00:00* Test Item Value Reference Range Interpretation Comme nts CREATININE, URINE, CONC. (te st code = 2072) 214.9 MG/DL ALBUMIN, URINE, RANDOM (test code = 74172) 0.7 MG/DL CALC ALBUMIN/CREAT, RND (selam t code = 61067) 3 MG/G Shawn DiazCOMPREHENSIVE METABOLIC [id number] 00:00:00* Test Item Value Reference Range Interpretation Comme nts GLUCOSE (test code = 2217) 256 MG/DL BUN (test code = 2208) 10 MG/DL CREATININE (test code = 2214) 0.54 MG/DL eGFR (2020 CKD-EPI) (test code = 16079) 119 ML/MIN/1.73 CALC BUN/CREAT (test code = 2235) 19 RATIO SODIUM (test code = 2231) 135 MEQ/L POTASSIUM (test code = 2228) 4.8 MEQ/L CHLORIDE (test code = 2215) 100 MEQ/L CARBON DIOXIDE (test code = 2206) 23 MEQ/L CALCIUM (test code = 2209) 9.7 MG/DL PROTEIN, TOTAL (test code = 2229) 7.4 G/DL ALBUMIN (test code = 2201) 4.3 G/DL CALC GLOBULIN (test code = 2240) 3.1 G/DL CALC A/G RATIO (test code = 2234) 1.4 RATIO BILIRUBIN, TOTAL (test code = 2207) 0.2 MG/DL ALKALINE PHOSPHATASE (test code = 2204) 104 U/L AST (test code = 2218) 26 U/L ALT (test code = 2219) 40 U/L Shawn F AustinLIPID [id number] 00:00:00* Test Item Value Reference Range Interpretation Comme nts CHOLESTEROL (test code = 2210) 175 MG/DL TRIGLYCERIDES (test code = 2232) 136 MG/DL HDL CHOLESTEROL (test code = 2220) 43 MG/DL CALC LDL CHOL (test code = 2237) 107 MG/DL RISK RATIO LDL/HDL (test cod e = 2238) 2.49 RATIO Shawn DiazHEMOGLOBIN [id number] 00:00:00* Test Item Value Reference Range Interpretation Comme suzy HEMOGLOBIN A1c (test code = 45889) 8.7 % Shawn Guzman AustinALBUMIN/CREATININE RATIO, RANDOM [id number] 00:00:00* Test Item Value Reference Range Interpretation Comme nts CREATININE, URINE, CONC. (te st code = 2072) 214.9 MG/DL ALBUMIN, URINE, RANDOM (test code = 48634) 0.7 MG/DL CALC ALBUMIN/CREAT, RND (selam t code = 71360) 3 MG/G Shawn DiazCOMPREHENSIVE METABOLIC [id number] 00:00:00* Test Item Value Reference Range Interpretation Comme nts GLUCOSE (test code = 2217) 256 MG/DL BUN (test code = 2208) 10 MG/DL CREATININE (test code = 2214) 0.54 MG/DL eGFR (2020 CKD-EPI) (test code = 08791) 119 ML/MIN/1.73 CALC BUN/CREAT (test code = 2235) 19 RATIO SODIUM (test code = 2231) 135 MEQ/L POTASSIUM (test code = 2228) 4.8 MEQ/L CHLORIDE (test code = 2215) 100 MEQ/L CARBON DIOXIDE (test code = 2206) 23 MEQ/L CALCIUM (test code = 2209) 9.7 MG/DL PROTEIN, TOTAL (test code = 2229) 7.4 G/DL ALBUMIN (test code = 2201) 4.3 G/DL CALC GLOBULIN (test code = 2240) 3.1 G/DL CALC A/G RATIO (test code = 2234) 1.4 RATIO BILIRUBIN, TOTAL (test code = 2207) 0.2 MG/DL ALKALINE PHOSPHATASE (test code = 2204) 104 U/L AST (test code = 2218) 26 U/L ALT (test code = 2219) 40 U/L Shawn Guzman AustinHEMOGLOBIN [id number] 06:50:43* Test Item Value Reference Range Interpretation Comme nts HEMOGLOBIN A1c (test code = 84985) 11.0 % 4.2-5.6 H [employer]OCIATION GUIDELINES FOR HGB A1C: PREDIABETES/INCREASED RISK . . . . . . . 5.7-6.4% DIAGNOSIS OF DIABETES . . . . . . . . . >=6.5% WITH CONFIRMATION OR APPROPRIATE SYMPTOMS NOTE: ASSAY MAY BE AFFECTED BY HEMOGLOBINOPATHIES (SICKLE CELL ANEMIA, S-C DISEASE, OTHERS) OR ARTIFICIALLY LOWERED BY DECREASED RED CELL SURVIVAL (HEMOLYTIC ANEMIAS, BLOOD LOSS, ETC.). CONSIDER ALTERNATE TESTING OR LABORATORY CONSULTATION. TSH, THIRD [id number] 05:58:57* Test Item Value Reference Range Interpretation Comme nts TSH, THIRD GENERATION (test code = 2821) 3.430 UIU/ML 0.400-4.100 FREE [id number] 05:58:57* Test Item Value Reference Range Interpretation Comme nts FREE T3 (test code = 4273) 3.4 PG/ML 2.2-4.2 FREE T4 (THYROXINE)2023-04-16 05:58:57* Test Item Value Reference Range Interpretation Comme nts FREE T4 (THYROXINE) (test co de = 2823) 1.44 NG/DL 0.80-1.90 LIPID [id number] 05:55:20* Test Item Value Reference Range Interpretation Comme nts CHOLESTEROL (test code = 2210) 112 MG/DL <200 TRIGLYCERIDES (test code = 2232) 142 MG/DL <150 HDL CHOLESTEROL (test code = 2220) 34 MG/DL >39 L CALC LDL CHOL (test code = 2237) 55 MG/DL <100 NOTE: CALCULATED LDL IS BASED ON KORI-WALKER METHOD WHICHINCLUDES ADJUSTABLE TRIGLYCERIDE:VLDL CHOLESTEROL RATIO.THIS FACTOR VARIES BY MEASURED TRIGLYCERIDE AND NON-HDLCHOLESTEROL CONCENTRATIONS WITH INCREASED CALCULATED LDL SEENIN HIGHER TRIGLYCERIDE OR LOWER NON-HDL SPECIMENS. FOR MOREINFORMATION, SEE CLIENT ANNOUNCEMENT AT [email or web address] RISK RATIO LDL/HDL (test code = 2238) 1.62 RATIO <3.22 COMPREHENSIVE METABOLIC [id number] 05:55:20* Test Item Value Reference Range Interpretation Comme nts GLUCOSE (test code = 2216) 332 MG/DL 70-99 H BUN (test code = 2207) 9 MG/DL 6-20 CREATININE (test code = 2213) 0.59 MG/DL 0.60-1.30 L eGFR (2020 CKD-EPI) (test code = 96178) 116 ML/MIN/1.73 >60 CALC BUN/CREAT (test code = 2234) 15 RATIO 6-28 SODIUM (test code = 2230) 134 MEQ/L 133-146 POTASSIUM (test code = 2227) 4.7 MEQ/L 3.5-5.4 CHLORIDE (test code = 2214) 99 MEQ/L 95-107 CARBON DIOXIDE (test code = 2205) 25 MEQ/L 19-31 CALCIUM (test code = 2208) 9.4 MG/DL 8.5-10.5 PROTEIN, TOTAL (test code = 2228) 6.8 G/DL 6.1-8.3 ALBUMIN (test code = 2200) 4.3 G/DL 3.5-5.2 CALC GLOBULIN (test code = 2239) 2.5 G/DL 1.9-3.7 CALC A/G RATIO (test code = 2233) 1.7 RATIO 1.0-2.6 BILIRUBIN, TOTAL (test code = 2206) 0.4 MG/DL See_Comment [Automated me ssage] The system which generated this result transmitted reference range: <=1.2. The reference range was not used to interpret this result as normal/abnormal. ALKALINE PHOSPHATASE (test code = 2203) 107 U/L 40-113 AST (test code = 2217) 37 U/L 9-40 ALT (test code = 9) 58 U/L 5-40 H UNLESS OTHERWISE INDICATED, ALL TESTING PERFORMED AT [facility] [address] [place] [address], [place] [address] FRONT MAKER LOCKSTITCH: WING TOWNSEND M.D. CLIA NUMBER [id number] [facility] [place]. [id number] FREE [id number] 00:00:00* Test Item Value Reference Range Interpretation Comme nts FREE T3 (test code = 4273) 3.4 PG/ML Shawn Morgan T4 (THYROXINE)2023-04-16 00:00:00* Test Item Value Reference Range Interpretation Comme nts FREE T4 (THYROXINE) (test co de = 2823) 1.44 NG/DL Shawn DiazLIPID [id number] 00:00:00* Test Item Value Reference Range Interpretation Comme nts CHOLESTEROL (test code = 2210) 112 MG/DL TRIGLYCERIDES (test code = 2232) 142 MG/DL HDL CHOLESTEROL (test code = 2220) 34 MG/DL CALC LDL CHOL (test code = 2237) 55 MG/DL RISK RATIO LDL/HDL (test cod e = 2238) 1.62 RATIO Shawn DiazHEMOGLOBIN [id number] 00:00:00* Test Item Value Reference Range Interpretation Comme nts HEMOGLOBIN A1c (test code = 65589) 11.0 % Shawn DiazCOMPREHENSIVE METABOLIC [id number] 00:00:00* Test Item Value Reference Range Interpretation Comme nts GLUCOSE (test code = 2217) 332 MG/DL BUN (test code = 2208) 9 MG/DL CREATININE (test code = 2214) 0.59 MG/DL eGFR (2020 CKD-EPI) (test code = 22392) 116 ML/MIN/1.73 CALC BUN/CREAT (test code = 2235) 15 RATIO SODIUM (test code = 2231) 134 MEQ/L POTASSIUM (test code = 2228) 4.7 MEQ/L CHLORIDE (test code = 2215) 99 MEQ/L CARBON DIOXIDE (test code = 2206) 25 MEQ/L CALCIUM (test code = 2209) 9.4 MG/DL PROTEIN, TOTAL (test code = 2229) 6.8 G/DL ALBUMIN (test code = 2201) 4.3 G/DL CALC GLOBULIN (test code = 2240) 2.5 G/DL CALC A/G RATIO (test code = 2234) 1.7 RATIO BILIRUBIN, TOTAL (test code = 2207) 0.4 MG/DL ALKALINE PHOSPHATASE (test code = 2204) 107 U/L AST (test code = 2218) 37 U/L ALT (test code = 2219) 58 U/L Shanw DiazTSH, THIRD [id number] 00:00:00* Test Item Value Reference Range Interpretation Comme nts TSH, THIRD GENERATION (test code = 2821) 3.430 UIU/ML Shawn Morgan [id number] 00:00:00* Test Item Value Reference Range Interpretation Comme nts FREE T3 (test code = 4273) 3.4 PG/ML Shawn Morgan T4 (THYROXINE)2023-04-16 00:00:00* Test Item Value Reference Range Interpretation Comme nts FREE T4 (THYROXINE) (test co de = 2823) 1.44 NG/DL Shawn DiazLIPID [id number] 00:00:00* Test Item Value Reference Range Interpretation Comme nts CHOLESTEROL (test code = 2210) 112 MG/DL TRIGLYCERIDES (test code = 2232) 142 MG/DL HDL CHOLESTEROL (test code = 2220) 34 MG/DL CALC LDL CHOL (test code = 2237) 55 MG/DL RISK RATIO LDL/HDL (test cod e = 2238) 1.62 RATIO Shawn DiazHEMOGLOBIN [id number] 00:00:00* Test Item Value Reference Range Interpretation Comme suzy HEMOGLOBIN A1c (test code = 43400) 11.0 % Shawn DiazCOMPREHENSIVE METABOLIC [id number] 00:00:00* Test Item Value Reference Range Interpretation Comme nts GLUCOSE (test code = 2217) 332 MG/DL BUN (test code = 2208) 9 MG/DL CREATININE (test code = 2214) 0.59 MG/DL eGFR (2020 CKD-EPI) (test code = 51537) 116 ML/MIN/1.73 CALC BUN/CREAT (test code = 2235) 15 RATIO SODIUM (test code = 2231) 134 MEQ/L POTASSIUM (test code = 2228) 4.7 MEQ/L CHLORIDE (test code = 2215) 99 MEQ/L CARBON DIOXIDE (test code = 2206) 25 MEQ/L CALCIUM (test code = 2209) 9.4 MG/DL PROTEIN, TOTAL (test code = 2229) 6.8 G/DL ALBUMIN (test code = 2201) 4.3 G/DL CALC GLOBULIN (test code = 2240) 2.5 G/DL CALC A/G RATIO (test code = 2234) 1.7 RATIO BILIRUBIN, TOTAL (test code = 2207) 0.4 MG/DL ALKALINE PHOSPHATASE (test code = 2204) 107 U/L AST (test code = 2218) 37 U/L ALT (test code = 2219) 58 U/L Shawn Bauer, THIRD [id number] 00:00:00* Test Item Value Reference Range Interpretation Comme nts TSH, THIRD GENERATION (test code = 2821) 3.430 UIU/ML Shawn Allen, [id number] 12:05:22SPECIMEN NUMBER: [id number] CULTURE, URINE SPECIMEN NUMBER: [id number] SPECIMEN COMMENT: URINE SOURCE: URINE REPORT STATUS: FINAL FINAL REPORT: 02/21/2023 10-50,000 CFU/ML MIXED MICROBIAL POPULATION PRESENT, NO PREDOMINATING ORGANISMS;PROBABLE CONTAMINANTS. [facility] has important pathology staff changes effective 12/26/2022. New pathology staff will provide uninterrupted, excellent patient care and clinical consultation. See URL: [email or web address]. UNLESS OTHERWISE INDICATED, ALL TESTING PERFORMED AT [facility] [address] [place] [address] FRONT MAKER LOCKSTITCH: WING TOWNSEND M.D. CLIA NUMBER [id number] [facility] [place] [id number], [id number] 00:00:00* Test Item Value Reference Range Interpretation Comme nts CULTURE, URINE (test code = 89944) SPECIMEN NUMBER: [id number] Shawn PascalLTOUMOU, [id number] 00:00:00* Test Item Value Reference Range Interpretation Comme nts CULTURE, URINE (test code = 10162) SPECIMEN NUMBER: [id number] Shawn DiazPAP TEST, THINPREP, [id number] 19:45:01* Test Item Value Reference Range Interpretation Comme nts SOURCE: (test code = 8001) Cervical/Endoce rvical SLIDES: (test code = 8011) 1 LMP: (test code = 8021) 12/26/2022 SPECIMEN ADEQUACY: (test code = 12949) (NOTE) Satisfactory for evaluation. Endocervical cells/transformation zone component present. INTERPRETATION: (test code = 10522) NILM/NO EPITH. ABNORMALITY;SEE BELOW --- - NEGATIVE FOR INTRAEPITHELIAL LESION OR MALIGNANCY (NILM) ---- BAG CHECKER : (test code = 8101) Ayla Ugarte LOCATION: (test code = 25546) (NOTE) Specim[facility] proces sed [facility], [address] [place] [address], , CLIA: [id number] CPT: (test code = 8140) (NOTE) 08733 UNLESS OT HERWISE INDICATED, COMPUTER AIDED AND BAG CHECKER SCREENING PERFORMED. The Pap test is a screening test with an inherent, but low probability of error. Your patient should be reminded to consult you immediately if she experiences any suspicious signs or symptoms, regardless of her Pap test result. An alternate report format containing images or consolidated prior Pap history is available as applicable. HPV HIGH RISK WITH GENOTYPE, [id number] 19:34:58* Test Item Value Reference Range Interpretation Comme nts HPV HIGH RISK INTERP (test code = 85504) NEGATIVE NEGATIVE HPV 16 (test code = 22300) NEGATIVE HPV 18 (test code = 36970) NEGATIVE HPV, HR, OTHER GENOTYPES (test code = 43178) NEGATIVE Testing methodol ogy is real-time PCR utilizing hydrolysis probes with the [employer] Scar 4800 system. The test individually detects genotypes 16 and 18, as well as the other 12 high risk types (31,33,35,39,45,51,52,56 ,58,59,66,68). The expected result is negative. A negative result does not rule out the presence of HPV not included in the genotype set, a low level of infection or specimen sampling error. [facility] has important pathology staff changes effective 12/26/2022. New pathology staff will provide uninterrupted, excellent patient care and clinical consultation. See URL: [email or web address]. UNLESS OTHERWISE INDICATED, ALL TESTING PERFORMED AT [facility] [address] [place] [id number] FRONT MAKER LOCKSTITCH: Kalee MELGARIA NUMBER [id number] [place]. [id number] VAGINAL PATHOGENS DNA [id number] 15:42:35* Test Item Value Reference Range Interpretation Comme nts JAEL SPECIES (test code = 08003) POSITIVE NEGATIVE A G. VAGINALIS (test code = 37353) POSITIVE NEGATIVE A T. VAGINALIS (test code = 29209) NEGATIVE NEGATIVE Note: The [employer] irSearch123 VPIII Microbial Identification Testis a DNA probe test intended for use in the detectionand identification of Jael species, Gardnerellavaginalis and Trichomonas vaginalis nucleic acid. [facility] has important pathology staff changes effective 12/26/2022. New pathology staff will provide uninterrupted, excellent patient care and clinical consultation. See URL: [email or web address]. UNLESS OTHERWISE INDICATED, ALL TESTING PERFORMED AT [facility] [address] [place] [address] FRONT MAKER LOCKSTITCH: WING TOWNSEND M.D. CLIA NUMBER [id number] [place]. [id number] VAGINAL PATHOGENS DNA [id number] 00:00:00* Test Item Value Reference Range Interpretation Comme nts JAEL SPECIES (test code = ) POSITIVE G. VAGINALIS (test code = 43915) POSITIVE T. VAGINALIS (test code = 05592) NEGATIVE Shawn DiazPAP TEST, THINPREP, [id number] 00:00:00* Test Item Value Reference Range Interpretation Comme nts SOURCE: (test code = 8001) Cervical/Endocervical SLIDES: (test code = 8011) 1 LMP: (test code = 8021) 12/26/2022 SPECIMEN ADEQUACY: (test code = 53983) (NOTE) INTERPRETATION: (test code = 14397) NILM/NO EPITH. ABNORMALITY;SEE BELOW BAG CHECKER: (test code = 8101) Ayla Ugarte LOCATION: (test code = 48395) (NOTE) CPT: (test code = 8140) (NOTE) Shawn DiazHPV HIGH RISK WITH GENOTYPE, [id number] 00:00:00* Test Item Value Reference Range Interpretation Comme nts HPV HIGH RISK INTERP (test c ode = 19308) NEGATIVE HPV 16 (test code = 11062) NEGATIVE HPV 18 (test code = 61387) NEGATIVE HPV, HR, OTHER GENOTYPES (te st code = 25507) NEGATIVE Shawn DiazVAGINAL PATHOGENS DNA [id number] 00:00:00* Test Item Value Reference Range Interpretation Comme nts JAEL SPECIES (test code = 48540) POSITIVE G. VAGINALIS (test code = ) POSITIVE T. VAGINALIS (test code = ) NEGATIVE Shawn Guzman AustinPAP TEST, THINPREP, [id number] 00:00:00* Test Item Value Reference Range Interpretation Comme nts SOURCE: (test code = 8001) Cervical/Endocervical SLIDES: (test code = 8011) 1 LMP: (test code = 8021) 12/26/2022 SPECIMEN ADEQUACY: (test code = 28747) (NOTE) INTERPRETATION: (test code = 13887) NILM/NO EPITH. ABNORMALITY;SEE BELOW BAG CHECKER: (test code = 8101) Ayla Ugarte LOCATION: (test code = 26789) (NOTE) CPT: (test code = 8140) (NOTE) Shawn Guzman AustinHPV HIGH RISK WITH GENOTYPE, [id number] 00:00:00* Test Item Value Reference Range Interpretation Comme nts HPV HIGH RISK INTERP (test c ode = 74239) NEGATIVE HPV 16 (test code = 71852) NEGATIVE HPV 18 (test code = 32498) NEGATIVE HPV, HR, OTHER GENOTYPES (te st code = 40403) NEGATIVE Shawn DiazHEMOGLOBIN [id number] 04:51:14* Test Item Value Reference Range Interpretation Comme nts HEMOGLOBIN A1c (test code = 97056) 8.4 % 4.2-5.6 H [employer] GUIDELINES FOR HGB A1C: PREDIABETES/INCREASED RISK . . . . . . . 5.7-6.4% DIAGNOSIS OF DIABETES . . . . . . . . . >=6.5% WITH CONFIRMATION OR APPROPRIATE SYMPTOMS NOTE: ASSAY MAY BE AFFECTED BY HEMOGLOBINOPATHIES (SICKLE CELL ANEMIA, S-C DISEASE, OTHERS) OR ARTIFICIALLY LOWERED BY DECREASED RED CELL SURVIVAL (HEMOLYTIC ANEMIAS, BLOOD LOSS, ETC.). CONSIDER ALTERNATE TESTING OR LABORATORY CONSULTATION. [facility] has important pathology staff changes effective 12/26/2022. New pathology staff will provide uninterrupted, excellent patient care and clinical consultation. See URL: [email or web address]. UNLESS OTHERWISE INDICATED, ALL TESTING PERFORMED AT [facility] [address] [place] [address] FRONT MAKER LOCKSTITCH: WING TOWNSEND M.D. [place] NUMBER [id number] [facility] [place]. [id number] HEMOGLOBIN [id number] 00:00:00* Test Item Value Reference Range [facility]ation [facility] HEMOGLOBIN A1c (test code = 25546) 8.4 % Shawn DiazHEMOGLOBIN [id number] 00:00:00* Test Item Value Reference Range Interpretation [facility] HEMOGLOBIN A1c (test code = 88557) 8.4 % Shawn DiazCOMPREHENSIVE METABOLIC [id number] 04:35:20* Test Item Value Reference Range Interpretation [facility] GLUCOSE (test code = 2217) 289 MG/DL 70-99 H BUN (test code = 2208) 8 MG/DL 6-20 CREATININE (test code = 2214) 0.58 MG/DL 0.60-1.30 L eGFR (2020 CKD-EPI) (test code = 63760) 117 ML/MIN/1.73 >60 CALC BUN/CREAT (test code = 2235) 14 RATIO 6-28 SODIUM (test code = 223) 136 MEQ/L 133-146 POTASSIUM (test code = 2228) 4.7 MEQ/L 3.5-5.4 CHLORIDE (test code = 2215) 101 MEQ/L 95-107 CARBON DIOXIDE (test code = 2206) 25 MEQ/L 19-31 CALCIUM (test code = 2209) 9.2 MG/DL 8.5-10.5 PROTEIN, TOTAL (test code = 2229) 6.9 G/DL 6.1-8.3 ALBUMIN (test code = 2201) 4.5 G/DL 3.5-5.2 CALC GLOBULIN (test code = 2240) 2.4 G/DL 1.9-3.7 CALC A/G RATIO (test code = 2234) 1.9 RATIO 1.0-2.6 BILIRUBIN, TOTAL (test code = 2207) 0.5 MG/DL See_Comment [Automated me ssage] The system which generated this result transmitted reference range: <=1.2. The reference range was not used to interpret this result as normal/abnormal. ALKALINE PHOSPHATASE (test code = 2204) 93 U/L 40-112 AST (test code = 2218) 21 U/L 9-40 ALT (test code = 2219) 28 U/L 5-40 LIPID [id number] 04:35:20* Test Item Value Reference Range Interpretation Comme nts CHOLESTEROL (test code = 0) 126 MG/DL <200 TRIGLYCERIDES (test code = 2) 94 MG/DL <150 HDL CHOLESTEROL (test code = 0) 37 MG/DL >39 L CALC LDL CHOL (test code = 2236) 71 MG/DL <100 NOTE: CALCULATED LDL IS BASED ON KORI-WALKER METHOD WHICHINCLUDES ADJUSTABLE TRIGLYCERIDE:VLDL CHOLESTEROL RATIO.THIS FACTOR VARIES BY MEASURED TRIGLYCERIDE AND NON-HDLCHOLESTEROL CONCENTRATIONS WITH INCREASED CALCULATED LDL SEENIN HIGHER TRIGLYCERIDE OR LOWER NON-HDL SPECIMENS. FOR MOREINFORMATION, SEE CLIENT ANNOUNCEMENT AT [email or web address] RISK RATIO LDL/HDL (test code = 2238) 1.92 RATIO <3.22 UNLESS OTHERW ISE INDICATED, ALL TESTING PERFORMED [facility] [address] [place] [address] FRONT MAKER LOCKSTITCH: ANGELIA FARR M.D. CLIA NUMBER [id number] [facility] [place]. [id number] ALBUMIN/CREATININE RATIO, URINE, [id number] 04:00:10* Test Item Value Reference Range Interpretation Comme nts CREATININE, URINE, CONC. (test code = 2072) 124.8 MG/DL NOT ESTAB ALBUMIN, URINE, RANDOM (test code = 41472) 0.6 MG/DL NOT ESTAB CALC ALBUMIN/CREAT, RND (test code = 17797) 5 MG/G <30 Note: Albumin/Creatinine ratio reference interval reflects ADA and NKF guidelines. HEMOGLOBIN [id number] 01:58:47* Test Item Value Reference Range Interpretation Comme nts HEMOGLOBIN A1c (test code = 44862) 10.6 % 4.2-5.6 H [employer]ATION GUIDELINES FOR HGB A1C: PREDIABETES/INCREASED RISK . . . . . . . 5.7-6.4% DIAGNOSIS OF DIABETES . . . . . . . . . >=6.5% WITH CONFIRMATION OR APPROPRIATE SYMPTOMS NOTE: ASSAY MAY BE AFFECTED BY HEMOGLOBINOPATHIES (SICKLE CELL ANEMIA, S-C DISEASE, OTHERS) OR ARTIFICIALLY LOWERED BY DECREASED RED CELL SURVIVAL (HEMOLYTIC ANEMIAS, BLOOD LOSS, ETC.). CONSIDER ALTERNATE TESTING OR LABORATORY CONSULTATION. HEMOGLOBIN [id number] 00:00:00* Test Item Value Reference Range Interpretation [facility] HEMOGLOBIN A1c (test code = 23357) 10.6 % Shawn DiazALBUMIN/CREATININE RATIO, RANDOM [id number] 00:00:00* Test Item Value Reference Range Interpretation [facility] CREATININE, URINE, CONC. (te st code = 2072) 124.8 MG/DL ALBUMIN, URINE, RANDOM (test code = 79825) 0.6 MG/DL CALC ALBUMIN/CREAT, RND (selam t code = 86456) 5 MG/G Shawn DiazLIPID [id number] 00:00:00* Test Item Value Reference Range Interpretation Comme nts CHOLESTEROL (test code = 2210) 126 MG/DL TRIGLYCERIDES (test code = 2232) 94 MG/DL HDL CHOLESTEROL (test code = 2220) 37 MG/DL CALC LDL CHOL (test code = 2237) 71 MG/DL RISK RATIO LDL/HDL (test cod e = 2238) 1.92 RATIO Shawn DiazCOMPREHENSIVE METABOLIC [id number] 00:00:00* Test Item Value Reference Range Interpretation Comme nts GLUCOSE (test code = 2217) 289 MG/DL BUN (test code = 2208) 8 MG/DL CREATININE (test code = 2214) 0.58 MG/DL eGFR (2020 CKD-EPI) (test code = 19047) 117 ML/MIN/1.73 CALC BUN/CREAT (test code = 2235) 14 RATIO SODIUM (test code = 2231) 136 MEQ/L POTASSIUM (test code = 2228) 4.7 MEQ/L CHLORIDE (test code = 2215) 101 MEQ/L CARBON DIOXIDE (test code = 2206) 25 MEQ/L CALCIUM (test code = 2209) 9.2 MG/DL PROTEIN, TOTAL (test code = 2229) 6.9 G/DL ALBUMIN (test code = 2201) 4.5 G/DL CALC GLOBULIN (test code = 2240) 2.4 G/DL CALC A/G RATIO (test code = 2234) 1.9 RATIO BILIRUBIN, TOTAL (test code = 2207) 0.5 MG/DL ALKALINE PHOSPHATASE (test code = 2204) 93 U/L AST (test code = 2218) 21 U/L ALT (test code = 2219) 28 U/L Shawn DiazHEMOGLOBIN [id number] 00:00:00* Test Item Value Reference Range Interpretation [facility] HEMOGLOBIN A1c (test code = 90150) 10.6 % Shawn DiazALBUMIN/CREATININE RATIO, RANDOM [id number] 00:00:00* Test Item Value Reference Range Interpretation [facility] CREATININE, URINE, CONC. (te st code = 2072) 124.8 MG/DL ALBUMIN, URINE, RANDOM (test code = 90521) 0.6 MG/DL CALC ALBUMIN/CREAT, RND (selam t code = 91404) 5 MG/G Shawn DiazLIPID [id number] 00:00:00* Test Item Value Reference Range Interpretation Comme nts CHOLESTEROL (test code = 2210) 126 MG/DL TRIGLYCERIDES (test code = 2232) 94 MG/DL HDL CHOLESTEROL (test code = 2220) 37 MG/DL CALC LDL CHOL (test code = 2237) 71 MG/DL RISK RATIO LDL/HDL (test cod e = 2238) 1.92 RATIO Shawn DiazCOMPREHENSIVE METABOLIC [id number] 00:00:00* Test Item Value Reference Range Interpretation Comme nts GLUCOSE (test code = 2217) 289 MG/DL BUN (test code = 2208) 8 MG/DL CREATININE (test code = 2214) 0.58 MG/DL eGFR (2020 CKD-EPI) (test code = 39754) 117 ML/MIN/1.73 CALC BUN/CREAT (test code = 2235) 14 RATIO SODIUM (test code = 2231) 136 MEQ/L POTASSIUM (test code = 2228) 4.7 MEQ/L CHLORIDE (test code = 2215) 101 MEQ/L CARBON DIOXIDE (test code = 2206) 25 MEQ/L CALCIUM (test code = 2209) 9.2 MG/DL PROTEIN, TOTAL (test code = 2229) 6.9 G/DL ALBUMIN (test code = 2201) 4.5 G/DL CALC GLOBULIN (test code = 2240) 2.4 G/DL CALC A/G RATIO (test code = 2234) 1.9 RATIO BILIRUBIN, TOTAL (test code = 2207) 0.5 MG/DL ALKALINE PHOSPHATASE (test code = 2204) 93 U/L AST (test code = 2218) 21 U/L ALT (test code = 2219) 28 U/L Shawn Guzman AustinHEMOGLOBIN [id number] 21:37:27* Test Item Value Reference Range Interpretation Comme nts HEMOGLOBIN A1c (test code = 37036) 8.9 % 4.2-5.6 H [employer]IATION GUIDELINES FOR HGB A1C: PREDIABETES/INCREASED RISK . . . . . . . 5.7-6.4% DIAGNOSIS OF DIABETES . . . . . . . . . >=6.5% WITH CONFIRMATION OR APPROPRIATE SYMPTOMS NOTE: ASSAY MAY BE AFFECTED BY HEMOGLOBINOPATHIES (SICKLE CELL ANEMIA, S-C DISEASE, OTHERS) OR ARTIFICIALLY LOWERED BY DECREASED RED CELL SURVIVAL (HEMOLYTIC ANEMIAS, BLOOD LOSS, ETC.). CONSIDER ALTERNATE TESTING OR LABORATORY CONSULTATION. LIPID [id number] 05:20:39* Test Item Value Reference Range Interpretation Comme nts CHOLESTEROL (test code = 2210) 172 MG/DL <200 TRIGLYCERIDES (test code = 2232) 344 MG/DL <150 H HDL CHOLESTEROL (test code = 2220) 35 MG/DL >39 L CALC LDL CHOL (test code = 2237) 91 MG/DL <100 NOTE: CALCULATED LDL IS BASED ON KORI-WALKER METHOD WHICHINCLUDES ADJUSTABLE TRIGLYCERIDE:VLDL CHOLESTEROL RATIO.THIS FACTOR VARIES BY MEASURED TRIGLYCERIDE AND NON-HDLCHOLESTEROL CONCENTRATIONS WITH INCREASED CALCULATED LDL SEENIN HIGHER TRIGLYCERIDE OR LOWER NON-HDL SPECIMENS. FOR MOREINFORMATION, SEE CLIENT ANNOUNCEMENT AT [email or web address] RISK RATIO LDL/HDL (test code = 2238) 2.60 RATIO <3.22 UNLESS OTHERW ISE INDICATED, ALL TESTING PERFORMED [facility] [address] [place] [address] FRONT MAKER LOCKSTITCH: ANGELIA FARR M.D. [facility] NUMBER [id number] [facility] [place]. [id number] LIPID [id number] 00:00:00* Test Item Value Reference Range Interpretation Comme nts CHOLESTEROL (test code = 2210) 172 MG/DL TRIGLYCERIDES (test code = 2232) 344 MG/DL HDL CHOLESTEROL (test code = 2220) 35 MG/DL CALC LDL CHOL (test code = 2237) 91 MG/DL RISK RATIO LDL/HDL (test cod e = 2238) 2.60 RATIO Shawn Guzman AustinHEMOGLOBIN [id number] 00:00:00* Test Item Value Reference Range Interpretation Comme nts HEMOGLOBIN A1c (test code = 49899) 8.9 % Shawn Guzman AustinLIPID [id number] 00:00:00* Test Item Value Reference Range Interpretation Comme nts CHOLESTEROL (test code = 2210) 172 MG/DL TRIGLYCERIDES (test code = 2232) 344 MG/DL HDL CHOLESTEROL (test code = 2220) 35 MG/DL CALC LDL CHOL (test code = 2237) 91 MG/DL RISK RATIO LDL/HDL (test cod e = 2238) 2.60 RATIO Shawn Guzman AustinHEMOGLOBIN [id number] 00:00:00* Test Item Value Reference Range Interpretation Comme nts HEMOGLOBIN A1c (test code = 51369) 8.9 % Shawn Guzman AustinLIPID [id number] 06:07:54* Test Item Value Reference Range Interpretation Comme nts CHOLESTEROL (test code = 2210) 195 MG/DL <200 TRIGLYCERIDES (test code = 2232) 410 MG/DL <150 H HDL CHOLESTEROL (test code = 2220) 35 MG/DL >39 L CALC LDL CHOL (test code = 2237) (NOTE) MG/DL <100 UNABLE TO CALCUL ATE A VALID LDL CHOLESTEROL WHEN THE TRIGLYCERIDEVALUE IS GREATER THAN 400 MG/DL.UNABLE TO CALCULATE A VALID LDL CHOLESTEROL WHEN THE TRIGLYCERIDEVALUE IS GREATER THAN 400 MG/DL. NOTE: CALCULATED LDL IS BASED ON KORI-WALKER METHOD WHICHINCLUDES ADJUSTABLE TRIGLYCERIDE:VLDL CHOLESTEROL RATIO.THIS FACTOR VARIES BY MEASURED TRIGLYCERIDE AND NON-HDLCHOLESTEROL CONCENTRATIONS WITH INCREASED CALCULATED LDL SEENIN HIGHER TRIGLYCERIDE OR LOWER NON-HDL SPECIMENS. FOR MOREINFORMATION, SEE CLIENT ANNOUNCEMENT AT [email or web address] CalcLDL-C RISK RATIO LDL/HDL (test code = 223) (NOTE) RATIO <3.22 UNABLE TO SCAR CULATE COMPREHENSIVE METABOLIC [id number] 06:07:54* Test Item Value Reference Range Interpretation Comme nts GLUCOSE (test code = 7) 480 MG/DL 70-99 H BUN (test code = 2207) 13 MG/DL 6-20 CREATININE (test code = 2213) 0.84 MG/DL 0.60-1.30 eGFR (2020 CKD-EPI) (test code = 04187) 90 ML/MIN/1.73 >60 CALC BUN/CREAT (test code = 2234) 15 RATIO 6-28 SODIUM (test code = 2230) 134 MEQ/L 133-146 POTASSIUM (test code = 2227) 4.7 MEQ/L 3.5-5.4 CHLORIDE (test code = 2214) 99 MEQ/L 95-107 CARBON DIOXIDE (test code = 6) 25 MEQ/L 19-31 CALCIUM (test code = 2208) 9.6 MG/DL 8.5-10.5 PROTEIN, TOTAL (test code = 2228) 7.4 G/DL 6.1-8.3 ALBUMIN (test code = 220) 4.4 G/DL 3.5-5.2 CALC GLOBULIN (test code = 2240) 3.0 G/DL 1.9-3.7 CALC A/G RATIO (test code = 223) 1.5 RATIO 1.0-2.6 BILIRUBIN, TOTAL (test code = 2206) 0.2 MG/DL See_Comment [Automated me ssage] The system which generated this result transmitted reference range: <=1.2. The reference range was not used to interpret this result as normal/abnormal. ALKALINE PHOSPHATASE (test code = 2204) 99 U/L 40-112 AST (test code = 2218) 22 U/L 9-40 ALT (test code = 2219) 33 U/L 5-40 UNLESS OTHERWISE INDICATED, ALL TESTING PERFORMED ATCLINPay [facility] ([facility]) [facility] [address] [place] [address] FRONT MAKER LOCKSTITCH: ANGELIA FARR M.D. CLIA NUMBER [id number] [place]. [id number] HEMOGLOBIN [id number] 04:56:48* Test Item Value Reference Range Interpretation Comme nts HEMOGLOBIN A1c (test code = 83301) 9.7 % 4.2-5.6 H [employer]IATION GUIDELINES FOR HGB A1C: PREDIABETES/INCREASED RISK . . . . . . . 5.7-6.4% DIAGNOSIS OF DIABETES . . . . . . . . . >=6.5% WITH CONFIRMATION OR APPROPRIATE SYMPTOMS NOTE: ASSAY MAY BE AFFECTED BY HEMOGLOBINOPATHIES (SICKLE CELL ANEMIA, S-C DISEASE, OTHERS) OR ARTIFICIALLY LOWERED BY DECREASED RED CELL SURVIVAL (HEMOLYTIC ANEMIAS, BLOOD LOSS, ETC.). CONSIDER ALTERNATE TESTING OR LABORATORY CONSULTATION. LIPID [id number] 00:00:00* Test Item Value Reference Range Interpretation Comme nts CHOLESTEROL (test code = 2210) 195 MG/DL TRIGLYCERIDES (test code = 2232) 410 MG/DL HDL CHOLESTEROL (test code = 2220) 35 MG/DL CALC LDL CHOL (test code = 2237) (NOTE) MG/DL RISK RATIO LDL/HDL (test cod e = 2238) (NOTE) RATIO Shawn DiazCOMPREHENSIVE METABOLIC [id number] 00:00:00* Test Item Value Reference Range Interpretation Comme nts GLUCOSE (test code = 2217) 480 MG/DL BUN (test code = 2208) 13 MG/DL CREATININE (test code = 2214) 0.84 MG/DL eGFR (2020 CKD-EPI) (test co de = 39994) 90 ML/MIN/1.73 CALC BUN/CREAT (test code = 2235) 15 RATIO SODIUM (test code = 2231) 134 MEQ/L POTASSIUM (test code = 2228) 4.7 MEQ/L CHLORIDE (test code = 2215) 99 MEQ/L CARBON DIOXIDE (test code = 2206) 25 MEQ/L CALCIUM (test code = 2209) 9.6 MG/DL PROTEIN, TOTAL (test code = 2229) 7.4 G/DL ALBUMIN (test code = 2201) 4.4 G/DL CALC GLOBULIN (test code = 2240) 3.0 G/DL CALC A/G RATIO (test code = 2234) 1.5 RATIO BILIRUBIN, TOTAL (test code = 2207) 0.2 MG/DL ALKALINE PHOSPHATASE (test code = 2204) 99 U/L AST (test code = 2218) 22 U/L ALT (test code = 2219) 33 U/L Shawn F AustinHEMOGLOBIN [id number] 00:00:00* Test Item Value Reference Range Interpretation Comme nts HEMOGLOBIN A1c (test code = 97347) 9.7 % Shawn DiazLIPID [id number] 00:00:00* Test Item Value Reference Range Interpretation Comme nts CHOLESTEROL (test code = 2210) 195 MG/DL TRIGLYCERIDES (test code = 2232) 410 MG/DL HDL CHOLESTEROL (test code = 2220) 35 MG/DL CALC LDL CHOL (test code = 2237) (NOTE) MG/DL RISK RATIO LDL/HDL (test cod e = 2238) (NOTE) RATIO Shawn DiazCOMPREHENSIVE METABOLIC [id number] 00:00:00* Test Item Value Reference Range Interpretation Comme nts GLUCOSE (test code = 2217) 480 MG/DL BUN (test code = 2208) 13 MG/DL CREATININE (test code = 2214) 0.84 MG/DL eGFR (2020 CKD-EPI) (test co de = 43959) 90 ML/MIN/1.73 CALC BUN/CREAT (test code = 2235) 15 RATIO SODIUM (test code = 2231) 134 MEQ/L POTASSIUM (test code = 2228) 4.7 MEQ/L CHLORIDE (test code = 2215) 99 MEQ/L CARBON DIOXIDE (test code = 2206) 25 MEQ/L CALCIUM (test code = 2209) 9.6 MG/DL PROTEIN, TOTAL (test code = 2229) 7.4 G/DL ALBUMIN (test code = 2201) 4.4 G/DL CALC GLOBULIN (test code = 2240) 3.0 G/DL CALC A/G RATIO (test code = 2234) 1.5 RATIO BILIRUBIN, TOTAL (test code = 2207) 0.2 MG/DL ALKALINE PHOSPHATASE (test code = 2204) 99 U/L AST (test code = 2218) 22 U/L ALT (test code = 2219) 33 U/L Shawn DiazHEMOGLOBIN [id number] 00:00:00* Test Item Value Reference Range Interpretation Comme nts HEMOGLOBIN A1c (test code = 36566) 9.7 % Shawn DiazHEMOGLOBIN [id number] 06:53:59* Test Item Value Reference Range Interpretation Comme nts HEMOGLOBIN A1c (test code = 24580) 10.1 % 4.2-5.6 H [employer]IATION GUIDELINES FOR HGB A1C: PREDIABETES/INCREASED RISK . . . . . . . 5.7-6.4% DIAGNOSIS OF DIABETES . . . . . . . . . >=6.5% WITH CONFIRMATION OR APPROPRIATE SYMPTOMS NOTE: ASSAY MAY BE AFFECTED BY HEMOGLOBINOPATHIES (SICKLE CELL ANEMIA, S-C DISEASE, OTHERS) OR ARTIFICIALLY LOWERED BY DECREASED RED CELL SURVIVAL (HEMOLYTIC ANEMIAS, BLOOD LOSS, ETC.). CONSIDER ALTERNATE TESTING OR LABORATORY CONSULTATION. UNLESS OTHERWISE INDICATED, ALL TESTING PERFORMED [facility] ([facility]) [facility] [address] [place] [address] FRONT MAKER LOCKSTITCH: ANGELIA FARR M.D. [place] NUMBER [id number] [facility] [place] [place]. [id number] HEMOGLOBIN [id number] 00:00:00* Test Item Value Reference Range Interpretation [facility] HEMOGLOBIN A1c (test code = 91164) 10.1 % Shawn DiazHEMOGLOBIN [id number] 00:00:00* Test Item Value Reference Range Interpretation Com[facility] HEMOGLOBIN A1c (test code = 65715) 10.1 % Shawn Guzman AustinSCR MAMM BILATERAL [place] CAD [id number] 09:44:38 Name: Chloe : 1980 Sex: F - SCR MAMM BILATERAL ADILIA CAD DIGITALBILATERAL FIRST EVER DIGITAL SCREENING MAMMOGRAM 3D/2D WITH CAD: 12/07/2021LINICAL: Asymptomatic. Digital breast tomosynthesis was performed in addition to routine CC and MLO views. Current mammographic images were evaluated by [employer] CAD (computer-aided detection) software. No prior exams were available for comparison. The tissue of both breasts is heterogeneously dense. This may lowerthe sensitivity of mammography. No suspicious mass, architectural distortion, malignant type calcification, or lymph node abnormality detected. IMPRESSION: NEGATIVEThere is no mammographic evidence of malignancy. Resume annual screening mammography in one year. Christian Chung M.D. et/penrad::44:38 Lime Sludge Mixer: Donya Jacobo MM, [facility] Mammographyletter sent: BIRADS 1-2 Normal Mammogram BI-RADS: 1 NegativeHEMOGLOBIN [id number] 00:00:00* Test Item Value Reference Range Interpretation Comme nts HEMOGLOBIN A1c (test code = 81282) 9.0 % Shawn Guzman AustinCOMPREHENSIVE METABOLIC [id number] 00:00:00* Test Item Value Reference Range Interpretation Comme nts GLUCOSE (test code = 2217) 152 MG/DL BUN (test code = 2208) 12 MG/DL CREATININE (test code = 2214) 0.68 MG/DL eGFR AMER. (test cod e = 82415) 128 ML/MIN/1.73 eGFR NON- AMER. (test code = 57463) 110 ML/MIN/1.73 CALC BUN/CREAT (test code = 2235) 18 RATIO SODIUM (test code = 2231) 137 MEQ/L POTASSIUM (test code = 2228) 4.7 MEQ/L CHLORIDE (test code = 2215) 101 MEQ/L CARBON DIOXIDE (test code = 2206) 26 MEQ/L CALCIUM (test code = 2209) 9.7 MG/DL PROTEIN, TOTAL (test code = 2229) 7.3 G/DL ALBUMIN (test code = 2201) 4.6 G/DL CALC GLOBULIN (test code = 2240) 2.7 G/DL CALC A/G RATIO (test code = 2234) 1.7 RATIO BILIRUBIN, TOTAL (test code = 2207) 0.2 MG/DL ALKALINE PHOSPHATASE (test code = 2204) 86 U/L AST (test code = 2218) 33 U/L ALT (test code = 2219) 50 U/L Shawn Guzman AustinHEMOGLOBIN [id number] 00:00:00* Test Item Value Reference Range Interpretation Comme nts HEMOGLOBIN A1c (test code = 93299) 9.0 % Shawn F AustinCOMPREHENSIVE METABOLIC [id number] 00:00:00* Test Item Value Reference Range Interpretation Comme nts GLUCOSE (test code = 2217) 152 MG/DL BUN (test code = 2208) 12 MG/DL CREATININE (test code = 2214) 0.68 MG/DL eGFR AMER. (test cod e = 92813) 128 ML/MIN/1.73 eGFR NON- AMER. (test code = 00753) 110 ML/MIN/1.73 CALC BUN/CREAT (test code = 2235) 18 RATIO SODIUM (test code = 2231) 137 MEQ/L POTASSIUM (test code = 2228) 4.7 MEQ/L CHLORIDE (test code = 2215) 101 MEQ/L CARBON DIOXIDE (test code = 2206) 26 MEQ/L CALCIUM (test code = 2209) 9.7 MG/DL PROTEIN, TOTAL (test code = 2229) 7.3 G/DL ALBUMIN (test code = 2201) 4.6 G/DL CALC GLOBULIN (test code = 2240) 2.7 G/DL CALC A/G RATIO (test code = 2234) 1.7 RATIO BILIRUBIN, TOTAL (test code = 2207) 0.2 MG/DL ALKALINE PHOSPHATASE (test code = 2204) 86 U/L AST (test code = 2218) 33 U/L ALT (test code = 2219) 50 U/L Shawn DiazHEMOGLOBIN [id number] 00:00:00* Test Item Value Reference Range Interpretation Comme suzy HEMOGLOBIN A1c (test code = 91965) 8.4 % Shawn Guzman AustinHEMOGLOBIN [id number] 00:00:00* Test Item Value Reference Range Interpretation Comme nts HEMOGLOBIN A1c (test code = 35600) 8.4 % Shawn Guzman AustinHEMOGLOBIN [id number] 00:00:00* Test Item Value Reference Range Interpretation Comme nts HEMOGLOBIN A1c (test code = 57316) 10.0 % Shawn Guzman AustinLIPID [id number] 00:00:00* Test Item Value Reference Range Interpretation Comme nts CHOLESTEROL (test code = 2210) 122 MG/DL TRIGLYCERIDES (test code = 2232) 108 MG/DL HDL CHOLESTEROL (test code = 2220) 35 MG/DL CALC LDL CHOL (test code = 2237) 68 MG/DL RISK RATIO LDL/HDL (test cod e = 2238) 1.94 RATIO Shawn DiazCOMPREHENSIVE METABOLIC [id number] 00:00:00* Test Item Value Reference Range Interpretation Comme nts GLUCOSE (test code = 2217) 253 MG/DL BUN (test code = 2208) 7 MG/DL CREATININE (test code = 2214) 0.58 MG/DL eGFR AMER. (test cod e = 19651) 135 ML/MIN/1.73 eGFR NON- AMER. (test code = 17893) 116 ML/MIN/1.73 CALC BUN/CREAT (test code = 2235) 12 RATIO SODIUM (test code = 223) 137 MEQ/L POTASSIUM (test code = 2228) 4.3 MEQ/L CHLORIDE (test code = 2215) 100 MEQ/L CARBON DIOXIDE (test code = 2206) 27 MEQ/L CALCIUM (test code = 2209) 9.2 MG/DL PROTEIN, TOTAL (test code = 2229) 6.9 G/DL ALBUMIN (test code = 2201) 4.3 G/DL CALC GLOBULIN (test code = 2240) 2.6 G/DL CALC A/G RATIO (test code = 2234) 1.7 RATIO BILIRUBIN, TOTAL (test code = 2207) 0.3 MG/DL ALKALINE PHOSPHATASE (test code = 2204) 106 U/L AST (test code = 2218) 41 U/L ALT (test code = 2219) 72 U/L Shawn DiazMICROALBUMIN/CREATININE, RANDOM AND [id number] 00:00:00* Test Item Value Reference Range Interpretation Comme nts CREATININE, URINE, CONC. (te st code = 2072) 50.3 MG/DL ALBUMIN, URINE, RANDOM (test code = 02591) 0.5 MG/DL CALC ALBUMIN/CREAT, RND (selam t code = 83588) 10 MG/G Shawn [id number] 00:00:00* Test Item Value Reference Range Interpretation Comme nts TSH, THIRD GENERATION (test code = 2821) 2.900 UIU/ML Shawn DiazCBC W/AUTO [id number] 00:00:00* Test Item Value Reference Range Interpretation Comme nts WBC (test code = 1001) 7.9 K/UL RBC (test code = 1002) 4.44 M/UL HEMOGLOBIN (test code = 1003) 13.3 G/DL HEMATOCRIT (test code = 1004) 39.2 % MCV (test code = 1005) 88.3 fL MCH (test code = 1006) 30.0 PG MCHC (test code = 1007) 33.9 G/DL RDW (test code = 1038) 11.7 % NEUTROPHILS (test code = 1008) 53.3 % LYMPHOCYTES (test code = 1010) 32.9 % MONOCYTES (test code = 1011) 7.4 % EOSINOPHILS (test code = 1012) 5.4 % BASOPHILS (test code = 1013) 0.6 % IMMATURE GRANULOCYTES (test code = 1036) 0.4 % NUCLEATED RBCS (test code = 1065) 0.0 /100WBC'S PLATELET COUNT (test code = 1015) 332 K/UL ABSOLUTE NEUTROPHILS (test c ode = 1066) 4.22 K/UL ABSOLUTE LYMPHOCYTES (test c ode = 1067) 2.61 K/UL ABSOLUTE MONOCYTES (test cod e = 1068) 0.59 K/UL ABSOLUTE EOSINOPHILS (test c ode = 1040) 0.43 K/UL ABSOLUTE BASOPHILS (test cod e = 1069) 0.05 K/UL ABS IMMATURE GRANULOCYTES (t est code = 1020) 0.03 K/UL ABS NUCLEATED RBCS (test cod e = 52250) 0.00 K/UL Shawn DiazHEMOGLOBIN [id number] 00:00:00* Test Item Value Reference Range Interpretation Comme nts HEMOGLOBIN A1c (test code = 67099) 10.0 % Shawn DiazLIPID [id number] 00:00:00* Test Item Value Reference Range Interpretation Comme nts CHOLESTEROL (test code = 2210) 122 MG/DL TRIGLYCERIDES (test code = 2232) 108 MG/DL HDL CHOLESTEROL (test code = 2220) 35 MG/DL CALC LDL CHOL (test code = 2237) 68 MG/DL RISK RATIO LDL/HDL (test cod e = 2238) 1.94 RATIO Shawn DiazCOMPREHENSIVE METABOLIC [id number] 00:00:00* Test Item Value Reference Range Interpretation Comme nts GLUCOSE (test code = 2217) 253 MG/DL BUN (test code = 2208) 7 MG/DL CREATININE (test code = 2214) 0.58 MG/DL eGFR AMER. (test cod e = ) 135 ML/MIN/1.73 eGFR NON- AMER. (test code = 38029) 116 ML/MIN/1.73 CALC BUN/CREAT (test code = 2235) 12 RATIO SODIUM (test code = 2231) 137 MEQ/L POTASSIUM (test code = 2228) 4.3 MEQ/L CHLORIDE (test code = 2215) 100 MEQ/L CARBON DIOXIDE (test code = 2206) 27 MEQ/L CALCIUM (test code = 2209) 9.2 MG/DL PROTEIN, TOTAL (test code = 222) 6.9 G/DL ALBUMIN (test code = 220) 4.3 G/DL CALC GLOBULIN (test code = 2240) 2.6 G/DL CALC A/G RATIO (test code = 2234) 1.7 RATIO BILIRUBIN, TOTAL (test code = 2207) 0.3 MG/DL ALKALINE PHOSPHATASE (test code = 2204) 106 U/L AST (test code = 2218) 41 U/L ALT (test code = 2219) 72 U/L Shawn DiazMICROALBUMIN/CREATININE, RANDOM AND [id number] 00:00:00* Test Item Value Reference Range Interpretation Comme nts CREATININE, URINE, CONC. (te st code = 2072) 50.3 MG/DL ALBUMIN, URINE, RANDOM (test code = 83514) 0.5 MG/DL CALC ALBUMIN/CREAT, RND (selam t code = 72747) 10 MG/G Shawn Guzman [id number] 00:00:00* Test Item Value Reference Range Interpretation Comme nts TSH, THIRD GENERATION (test code = 2821) 2.900 UIU/ML Shawn Guzman JoeCBC W/AUTO [id number] 00:00:00* Test Item Value Reference Range Interpretation Comme nts WBC (test code = 1001) 7.9 K/UL RBC (test code = 1002) 4.44 M/UL HEMOGLOBIN (test code = 1003) 13.3 G/DL HEMATOCRIT (test code = 1004) 39.2 % MCV (test code = 1005) 88.3 fL MCH (test code = 1006) 30.0 PG MCHC (test code = 1007) 33.9 G/DL RDW (test code = 1038) 11.7 % NEUTROPHILS (test code = 1008) 53.3 % LYMPHOCYTES (test code = 1010) 32.9 % MONOCYTES (test code = 1011) 7.4 % EOSINOPHILS (test code = 1012) 5.4 % BASOPHILS (test code = 1013) 0.6 % IMMATURE GRANULOCYTES (test code = 1036) 0.4 % NUCLEATED RBCS (test code = 1065) 0.0 /100WBC'S PLATELET COUNT (test code = 1015) 332 K/UL ABSOLUTE NEUTROPHILS (test c ode = 1066) 4.22 K/UL ABSOLUTE LYMPHOCYTES (test c ode = 1067) 2.61 K/UL ABSOLUTE MONOCYTES (test cod e = 1068) 0.59 K/UL ABSOLUTE EOSINOPHILS (test c ode = 1040) 0.43 K/UL ABSOLUTE BASOPHILS (test cod e = 1069) 0.05 K/UL ABS IMMATURE GRANULOCYTES (t est code = 1020) 0.03 K/UL ABS NUCLEATED RBCS (test cod e = 54522) 0.00 K/UL Shawn Guzman [id number] (COVID-19) by RT-PCR (HIGH RISK)2020-06-10 00:00:00* Test Item Value Reference Range Interpretation Comme nts SARS-CoV-2 INTERPRETATION (t est code = 73713) NEGATIVE SOURCE (test code = 63342) NOT SPECIFIED Shawn Guzman [id number] (COVID-19) by RT-PCR (HIGH RISK)2020-06-10 00:00:00* Test Item Value Reference Range Interpretation Comme nts SARS-CoV-2 INTERPRETATION (t est code = 07335) NEGATIVE SOURCE (test code = 97130) NOT SPECIFIED Shawn Guzman AustinCOMPREHENSIVE METABOLIC [id number] 00:00:00* Test Item Value Reference Range Interpretation Comme nts GLUCOSE (test code = 2217) 215 MG/DL BUN (test code = 2208) 12 MG/DL CREATININE (test code = 2214) 0.75 MG/DL eGFR AMER. (test cod e = 11382) 117 ML/MIN/1.73 eGFR NON- AMER. (test code = 06492) 101 ML/MIN/1.73 CALC BUN/CREAT (test code = 2235) 16 RATIO SODIUM (test code = 2231) 137 MEQ/L POTASSIUM (test code = 2228) 5.0 MEQ/L CHLORIDE (test code = 2215) 101 MEQ/L CARBON DIOXIDE (test code = 2206) 26 MEQ/L CALCIUM (test code = 2209) 9.8 MG/DL PROTEIN, TOTAL (test code = 2229) 7.7 G/DL ALBUMIN (test code = 2201) 4.8 G/DL CALC GLOBULIN (test code = 2240) 2.9 G/DL CALC A/G RATIO (test code = 2234) 1.7 RATIO BILIRUBIN, TOTAL (test code = 2207) 0.5 MG/DL ALKALINE PHOSPHATASE (test code = 2204) 86 U/L AST (test code = 2218) 41 U/L ALT (test code = 2219) 59 U/L Shawn [id number] 00:00:00* Test Item Value Reference Range Interpretation Comme [facility] TSH, THIRD GENERATION (test code = 2821) 2.520 UIU/ML Shawn Guzman BowlegsHEMOGLOBIN [id number] 00:00:00* Test Item Value Reference Range Interpretation Comme [facility] HEMOGLOBIN A1c (test code = 84844) 8.3 % Shawn DiazCOMPREHENSIVE METABOLIC [id number] 00:00:00* Test Item Value Reference Range Interpretation Comme nts GLUCOSE (test code = 2217) 215 MG/DL BUN (test code = 2208) 12 MG/DL CREATININE (test code = 2214) 0.75 MG/DL eGFR AMER. (test cod e = 18441) 117 ML/MIN/1.73 eGFR NON- AMER. (test code = 81384) 101 ML/MIN/1.73 CALC BUN/CREAT (test code = 2235) 16 RATIO SODIUM (test code = 2231) 137 MEQ/L POTASSIUM (test code = 2228) 5.0 MEQ/L CHLORIDE (test code = 2215) 101 MEQ/L CARBON DIOXIDE (test code = 2206) 26 MEQ/L CALCIUM (test code = 2209) 9.8 MG/DL PROTEIN, TOTAL (test code = 2229) 7.7 G/DL ALBUMIN (test code = 2201) 4.8 G/DL CALC GLOBULIN (test code = 2240) 2.9 G/DL CALC A/G RATIO (test code = 2234) 1.7 RATIO BILIRUBIN, TOTAL (test code = 2207) 0.5 MG/DL ALKALINE PHOSPHATASE (test code = 2204) 86 U/L AST (test code = 2218) 41 U/L ALT (test code = 2219) 59 U/L Shawn [id number] 00:00:00* Test Item Value Reference Range Interpretation Comme nts TSH, THIRD GENERATION (test code = 2821) 2.520 UIU/ML Shawn DiazHEMOGLOBIN [id number] 00:00:00* Test Item Value Reference Range Interpretation Comme nts HEMOGLOBIN A1c (test code = 70897) 8.3 % Shawn DiazGC, AMPLIFIED, [id number] 00:00:00* Test Item Value Reference Range Interpretation Comme nts GONORRHEA, TMA (test code = 60164) NEGATIVE Shawn Guzman AustinCHLAMYDIA, AMPLIFIED, [id number] 00:00:00* Test Item Value Reference Range Interpretation Comme nts CHLAMYDIA, TMA (test code = 09253) NEGATIVE Shawn Guzman AustinGC, AMPLIFIED, [id number] 00:00:00* Test Item Value Reference Range Interpretation Comme nts GONORRHEA, TMA (test code = 68312) NEGATIVE Shawn DiazCHLAMYDIA, AMPLIFIED, [id number] 00:00:00* Test Item Value Reference Range Interpretation Comme nts CHLAMYDIA, TMA (test code = 23454) NEGATIVE Shawn DiazPOCT [id number] 14:50:00* Test Item Value Reference Range Interpretation Comme nts POCT PREG (test code = 1605) Negative On board controls acceptable with C Line (test code = 3574) Yes POCT PREG LOT # (test code = 3575) POCT PREG TEST DATE ( test code = 3576) [facility] [id number] 14:50:00* Test Item Value Reference Range Interpretation Comme nts POCT PREG (test code = 1605) Negative On board controls acceptable with C Line (test code = 3574) Yes POCT PREG LOT # (test code = 3575) PO[facility]REG TEST DATE ( test code = 3576[facility] [id number] 14:50:00* Test Item Value Reference Range Interpretation Comme nts POCT PREG (test code = 1605) Negative On board controls acceptable with C Line (test code = 3574) Yes POCT PREG LOT # (test code = 3575) POCT PREG TEST DATE ( test code = 3576) [facility] [id number] 00:00:00* Test Item Value Reference Range Interpretation Comme nts WBC (test code = 1001) 7.0 K/UL RBC (test code = 1002) 4.61 M/UL HEMOGLOBIN (test code = 1003) 13.9 G/DL HEMATOCRIT (test code = 1004) 41.2 % MCV (test code = 1005) 89.4 fL MCH (test code = 1006) 30.2 PG MCHC (test code = 1007) 33.7 G/DL RDW (test code = 1038) 11.7 % NEUTROPHILS (test code = 1008) 67.1 % LYMPHOCYTES (test code = 1010) 26.0 % MONOCYTES (test code = 1011) 4.6 % EOSINOPHILS (test code = 1012) 1.9 % BASOPHILS (test code = 1013) 0.4 % PLATELET COUNT (test code = 1015) 402 K/UL Shawn Guzman JoeCOMPREHENSIVE METABOLIC [id number] 00:00:00* Test Item Value Reference Range Interpretation Comme nts GLUCOSE (test code = 2217) 260 MG/DL BUN (test code = 2208) 8 MG/DL CREATININE (test code = 2214) 0.75 MG/DL eGFR AMER. (test cod e = 92318) 118 ML/MIN/1.73 eGFR NON- AMER. (test code = 01474) 102 ML/MIN/1.73 CALC BUN/CREAT (test code = 2235) 11 RATIO SODIUM (test code = 2231) 137 MEQ/L POTASSIUM (test code = 2228) 4.7 MEQ/L CHLORIDE (test code = 2215) 99 MEQ/L CARBON DIOXIDE (test code = 2206) 24 MEQ/L CALCIUM (test code = 2209) 9.8 MG/DL PROTEIN, TOTAL (test code = 2229) 7.6 G/DL ALBUMIN (test code = 2201) 4.8 G/DL CALC GLOBULIN (test code = 2240) 2.8 G/DL CALC A/G RATIO (test code = 2234) 1.7 RATIO BILIRUBIN, TOTAL (test code = 2207) 0.4 MG/DL ALKALINE PHOSPHATASE (test code = 2204) 85 U/L AST (test code = 2218) 63 U/L ALT (test code = 2219) 89 U/L Shawn [id number] 00:00:00* Test Item Value Reference Range Interpretation Comme nts TSH, THIRD GENERATION (test code = 2821) 2.480 UIU/ML Shawn DiazLIPID [id number] 00:00:00* Test Item Value Reference Range Interpretation Comme nts CHOLESTEROL (test code = 2210) 162 MG/DL TRIGLYCERIDES (test code = 2232) 154 MG/DL HDL CHOLESTEROL (test code = 2220) 40 MG/DL CALC LDL CHOL (test code = 2237) 91 MG/DL RISK RATIO LDL/HDL (test cod e = 2238) 2.28 RATIO Shawn DiazHEMOGLOBIN [id number] 00:00:00* Test Item Value Reference Range Interpretation Comme suzy HEMOGLOBIN A1c (test code = 58779) 8.8 % Shawn DiazCBC W/AUTO [id number] 00:00:00* Test Item Value Reference Range Interpretation Comme nts WBC (test code = 1001) 7.0 K/UL RBC (test code = 1002) 4.61 M/UL HEMOGLOBIN (test code = 1003) 13.9 G/DL HEMATOCRIT (test code = 1004) 41.2 % MCV (test code = 1005) 89.4 fL MCH (test code = 1006) 30.2 PG MCHC (test code = 1007) 33.7 G/DL RDW (test code = 1038) 11.7 % NEUTROPHILS (test code = 1008) 67.1 % LYMPHOCYTES (test code = 1010) 26.0 % MONOCYTES (test code = 1011) 4.6 % EOSINOPHILS (test code = 1012) 1.9 % BASOPHILS (test code = 1013) 0.4 % PLATELET COUNT (test code = 1015) 402 K/UL Shawn DiazCOMPREHENSIVE METABOLIC [id number] 00:00:00* Test Item Value Reference Range Interpretation Comme nts GLUCOSE (test code = 2217) 260 MG/DL BUN (test code = 2208) 8 MG/DL CREATININE (test code = 2214) 0.75 MG/DL eGFR AMER. (test cod e = 04241) 118 ML/MIN/1.73 eGFR NON- AMER. (test code = 64861) 102 ML/MIN/1.73 CALC BUN/CREAT (test code = 2235) 11 RATIO SODIUM (test code = 2231) 137 MEQ/L POTASSIUM (test code = 2228) 4.7 MEQ/L CHLORIDE (test code = 2215) 99 MEQ/L CARBON DIOXIDE (test code = 2206) 24 MEQ/L CALCIUM (test code = 2209) 9.8 MG/DL PROTEIN, TOTAL (test code = 2229) 7.6 G/DL ALBUMIN (test code = 2201) 4.8 G/DL CALC GLOBULIN (test code = 2240) 2.8 G/DL CALC A/G RATIO (test code = 2234) 1.7 RATIO BILIRUBIN, TOTAL (test code = 2207) 0.4 MG/DL ALKALINE PHOSPHATASE (test code = 2204) 85 U/L AST (test code = 2218) 63 U/L ALT (test code = 2219) 89 U/L Shawn [id number] 00:00:00* Test Item Value Reference Range Interpretation Comme nts TSH, THIRD GENERATION (test code = 2821) 2.480 UIU/ML Shawn DiazLIPID [id number] 00:00:00* Test Item Value Reference Range Interpretation Comme nts CHOLESTEROL (test code = 2210) 162 MG/DL TRIGLYCERIDES (test code = 2232) 154 MG/DL HDL CHOLESTEROL (test code = 2220) 40 MG/DL CALC LDL CHOL (test code = 2237) 91 MG/DL RISK RATIO LDL/HDL (test cod e = 2238) 2.28 RATIO Shawn DiazHEMOGLOBIN [id number] 00:00:00* Test Item Value Reference Range Interpretation Comme suzy HEMOGLOBIN A1c (test code = 40864) 8.8 % Shawn F AustinPAP TEST, THINPREP, [id number] 00:00:00* Test Item Value Reference Range Interpretation Comme nts SOURCE: (test code = 8001) Cervical/Endocervical SLIDES: (test code = 8011) 1 LMP: (test code = 8021) 11/02/2019 SPECIMEN ADEQUACY: (test code = 91191) (NOTE) INTERPRETATION: (test code = 52974) NILM/NO EPITH. ABNORMALITY;SEE BELOW BAG CHECKER: (test code = 8101) Kayy Rodriguez CT (ASCP) LOCATION: (test code = 55113) (NOTE) CPT: (test code = 8140) (NOTE) Shawn DiazPAP TEST, THINPREP, [id number] 00:00:00* Test Item Value Reference Range Interpretation Comme nts SOURCE: (test code = 8001) Cervical/Endocervical SLIDES: (test code = 8011) 1 LMP: (test code = 8021) 11/02/2019 SPECIMEN ADEQUACY: (test code = 32554) (NOTE) INTERPRETATION: (test code = 47083) NILM/NO EPITH. ABNORMALITY;SEE BELOW BAG CHECKER: (test code = 8101) BEBA Espitia (ASCP) LOCATION: (test code = 02487) (NOTE) CPT: (test code = 8140) (NOTE) Shawn DiazHIV AB/AG COMBO RFLX [id number] 00:00:00* Test Item Value Reference Range Interpretation Comme nts HIV 1/2 4TH GEN, RFLX CONF ( test code = 3514) NON-REACTIVE Shawn DiazHPV HIGH RISK WITH GENOTYPE, [id number] 00:00:00* Test Item Value Reference Range Interpretation Comme nts HPV HIGH RISK INTERP (test c ode = 24934) NEGATIVE HPV 16 (test code = 75607) NEGATIVE HPV 18 (test code = 16130) NEGATIVE HPV, HR, OTHER GENOTYPES (te st code = 10943) NEGATIVE Shawn DiazHEPATITIS PROFILE (A,B,C)2019-11-24 00:00:00* Test Item Value Reference Range Interpretation Comme nts HEPATITIS A TOTAL AB (test c ode = 2725) REACTIVE HEPATITIS B SURF AG (test co de = 2739) NON-REACTIVE HEP B CORE TOTAL AB (test co de = 2729) NON-REACTIVE HEPATITIS B SURFACE AB (test code = 2737) REACTIVE HEPATITIS C ANTIBODY (test c ode = 4675) NON-REACTIVE INTERPRETATION HEPATITIS A: (test code = 2552) (NOTE) INTERPRETATION HEPATITIS B: (test code = 97243) (NOTE) INTERPRETATION HEPATITIS C: (test code = 22944) (NOTE) Shawn DiazHEPATITIS A IgM [REFLEX]2019-11-24 00:00:00* Test Item Value Reference Range Interpretation Comme nts HEPATITIS A IgM (test code = 2728) NON-REACTIVE Shawn Guzman [id number] 00:00:00* Test Item Value Reference Range Interpretation Comme nts RPR RESULT (test code = 3501) NON-REACTIVE RPR TITER (test code = 3500) NOT INDIC. TITER Shawn DiazGC AND CHLAMYDIA AMPLIFIED, [id number] 00:00:00* Test Item Value Reference Range Interpretation Comme nts GONORRHEA, TMA (test code = 13205) NEGATIVE CHLAMYDIA, TMA (test code = 16972) NEGATIVE Shawn DiazHIV AB/AG COMBO RFLX [id number] 00:00:00* Test Item Value Reference Range Interpretation Comme nts HIV 1/2 4TH GEN, RFLX CONF ( test code = 3514) NON-REACTIVE Shawn LindsayPATITIS PROFILE (A,B,C)2019-11-24 00:00:00* Test Item Value Reference Range Interpretation Comme nts HEPATITIS A TOTAL AB (test c ode = 2725) REACTIVE HEPATITIS B SURF AG (test co de = 2739) NON-REACTIVE HEP B CORE TOTAL AB (test co de = 2729) NON-REACTIVE HEPATITIS B SURFACE AB (test code = 2737) REACTIVE HEPATITIS C ANTIBODY (test c ode = 4675) NON-REACTIVE INTERPRETATION HEPATITIS A: (test code = 2552) (NOTE) INTERPRETATION HEPATITIS B: (test code = 87524) (NOTE) INTERPRETATION HEPATITIS C: (test code = 24089) (NOTE) Shawn DiazHPV HIGH RISK WITH GENOTYPE, [id number] 00:00:00* Test Item Value Reference Range Interpretation Comme nts HPV HIGH RISK INTERP (test c ode = 34036) NEGATIVE HPV 16 (test code = 50333) NEGATIVE HPV 18 (test code = 80429) NEGATIVE HPV, HR, OTHER GENOTYPES (te st code = 94876) NEGATIVE Shawn DiazHEPATITIS A IgM [REFLEX]2019-11-24 00:00:00* Test Item Value Reference Range Interpretation Comme nts HEPATITIS A IgM (test code = 2728) NON-REACTIVE Shawn Guzman [id number] 00:00:00* Test Item Value Reference Range Interpretation Comme nts RPR RESULT (test code = 3501) NON-REACTIVE RPR TITER (test code = 3500) NOT INDIC. TITER Shawn DiazGC AND CHLAMYDIA AMPLIFIED, [id number] 00:00:00* Test Item Value Reference Range Interpretation Comme nts GONORRHEA, TMA (test code = 00813) NEGATIVE CHLAMYDIA, TMA (test code = 19502) NEGATIVE Shawn DiazSURGICAL PATHOLOGY [id number] 00:00:00* Test Item Value Reference Range Interpretation Comme nts DIAGNOSIS: (test code = 8200) (NOTE) COMMENTS: (test code = 8205) (NOTE) MICROSCOPIC DESCRIPTION: (te st code = 8210) (NOTE) CLINICAL DATA: (test code = 8401) (NOTE) GROSS DESCRIPTION: (test code = 8220) (NOTE) PATHOLOGIST: (test code = 8250) (NOTE) DISCLAIMER (test code = 20929) (NOTE) CPT: (test code = 8400) (NOTE) Shawn DiazSURGICAL PATHOLOGY [id number] 00:00:00* Test Item Value Reference Range Interpretation Comme nts DIAGNOSIS: (test code = 8200) (NOTE) COMMENTS: (test code = 8205) (NOTE) MICROSCOPIC DESCRIPTION: (te st code = 8210) (NOTE) CLINICAL DATA: (test code = 8401) (NOTE) GROSS DESCRIPTION: (test code = 8220) (NOTE) PATHOLOGIST: (test code = 8250) (NOTE) DISCLAIMER (test code = 36182) (NOTE) CPT: (test code = 8400) (NOTE) Shawn DiazHEMOGLOBIN [id number] 00:00:00* Test Item Value Reference Range Interpretation Comme nts HEMOGLOBIN A1c (test code = 85427) 7.0 % Shawn DiazLIPID [id number] 00:00:00* Test Item Value Reference Range Interpretation Comme nts CHOLESTEROL (test code = 2210) 145 MG/DL TRIGLYCERIDES (test code = 2232) 113 MG/DL HDL CHOLESTEROL (test code = 2220) 42 MG/DL CALC LDL CHOL (test code = 2237) 80 MG/DL RISK RATIO LDL/HDL (test cod e = 2238) 1.91 RATIO Shawn DiazHEMOGLOBIN [id number] 00:00:00* Test Item Value Reference Range Interpretation Comme nts HEMOGLOBIN A1c (test code = 86014) 7.0 % Shawn DiazLIPID [id number] 00:00:00* Test Item Value Reference Range Interpretation Comme nts CHOLESTEROL (test code = 2210) 145 MG/DL TRIGLYCERIDES (test code = 2232) 113 MG/DL HDL CHOLESTEROL (test code = 2220) 42 MG/DL CALC LDL CHOL (test code = 2237) 80 MG/DL RISK RATIO LDL/HDL (test cod e = 2238) 1.91 RATIO Shawn DiazFOOD ALLERGY IgE PANEL WITH TOTAL [id number] 00:00:00* Test Item Value Reference Range Interpretation Comme nts EGG WHITE IgE (test code = 31763) <0.10 KU/L PEANUT IgE (test code = 97931) <0.10 KU/L SOYBEAN IgE (test code = 76343) <0.10 KU/L MILK IgE (test code = 61195) <0.10 KU/L CLAM IgE (test code = 31619) <0.10 KU/L SHRIMP IgE (test code = 75291) <0.10 KU/L WALNUT IgE (test code = 40155) <0.10 KU/L COD FISH IgE (test code = 88790) <0.10 KU/L SCALLOP IgE (test code = 97401) <0.10 KU/L WHEAT IgE (test code = 87933) <0.10 KU/L CORN IgE (test code = 16359) <0.10 KU/L SESAME SEED IgE (test code = 11018) <0.10 KU/L IMMUNOGLOBULIN E (IgE) (test code = 63297) 71 KU/L Shawn DiazTawnya. PTERONYSSINUS IgE [ADDED]2019 00:00:00* Test Item Value Reference Range Interpretation Comme nts D. PTERONYSSINUS IgE (test c ode = 22197) 0.11 KU/L D. PTERONYS. CLASS (test cod e = 98604) 0/1 Shawn F AustinD. FARINAE IgE [ADDED]2019 00:00:00* Test Item Value Reference Range Interpretation Comme nts D. FARINAE IgE (test code = 54974) <0.10 KU/L Shawn F AustinCAT EPITHELIUM IgE [ADDED]2019 00:00:00* Test Item Value Reference Range Interpretation Comme nts CAT EPITHELIUM IgE (test cod e = 46716) <0.10 KU/L Shawn F AustinDOG DANDER IgE [ADDED]2019 00:00:00* Test Item Value Reference Range Interpretation Comme [facility] DOG DANDER IgE (test code = 21090) <0.10 KU/L Shawn F AustinCOCKROACH, CHADIAN IgE [ADDED]2019 00:00:00* Test Item Value Reference Range Interpretation Comme [facility] COCKROACH, CHADIAN IgE (test code = 37206) 0.56 KU/L COCKROACH, GRMN CLS (test co de = 17798) 1 Shawn F AustinCHICKEN FEATHERS IgE [ADDED]2019 00:00:00* Test Item Value Reference Range Interpretation Comme [facility] CHICKEN FEATHERS IgE (test c ode = 48279) <0.10 KU/L Shawn F AustinGOOSE FEATHERS IgE [ADDED]2019 00:00:00* Test Item Value Reference Range Interpretation Comme [facility] GOOSE FEATHERS IgE (test cod e = 29748) <0.10 KU/L Shawn F JoeFOOD ALLERGY IgE PANEL WITH TOTAL [id number] 00:00:00* Test Item Value Reference Range Interpretation Comme nts EGG WHITE IgE (test code = 26261) <0.10 KU/L PEANUT IgE (test code = 34791) <0.10 KU/L SOYBEAN IgE (test code = 82306) <0.10 KU/L MILK IgE (test code = 35812) <0.10 KU/L CLAM IgE (test code = 08207) <0.10 KU/L SHRIMP IgE (test code = 29123) <0.10 KU/L WALNUT IgE (test code = 34256) <0.10 KU/L COD FISH IgE (test code = 90945) <0.10 KU/L SCALLOP IgE (test code = 79994) <0.10 KU/L WHEAT IgE (test code = 67487) <0.10 KU/L CORN IgE (test code = 60935) <0.10 KU/L SESAME SEED IgE (test code = 05028) <0.10 KU/L IMMUNOGLOBULIN E (IgE) (test code = 18371) 71 KU/L Shawn Guzman AustinD. PTERONYSSINUS IgE [ADDED]2019 00:00:00* Test Item Value Reference Range Interpretation Comme nts D. PTERONYSSINUS IgE (test c ode = 26433) 0.11 KU/L D. PTERONYS. CLASS (test cod e = 52389) 0/1 Shawn Guzman AustinD. FARINAE IgE [ADDED]2019 00:00:00* Test Item Value Reference Range Interpretation Comme nts D. FARINAE IgE (test code = 23047) <0.10 KU/L Shawn Guzman AustinCAT EPITHELIUM IgE [ADDED]2019 00:00:00* Test Item Value Reference Range Interpretation Comme nts CAT EPITHELIUM IgE (test cod e = 21359) <0.10 KU/L Shawn DiazDOG DANDER IgE [ADDED]2019 00:00:00* Test Item Value Reference Range Interpretation Comme nts DOG DANDER IgE (test code = 44030) <0.10 KU/L Shawn Guzman AustinCOCKROACH, CHADIAN IgE [ADDED]2019 00:00:00* Test Item Value Reference Range Interpretation Comme nts COCKROACH, CHADIAN IgE (test code = 28098) 0.56 KU/L COCKROACH, GRMN CLS (test co de = 88570) 1 Shawnmel DiazCHICKEN FEATHERS IgE [ADDED]2019 00:00:00* Test Item Value Reference Range Interpretation Comme nts CHICKEN FEATHERS IgE (test c ode = 14241) <0.10 KU/L Shawn F AustinGOOSE FEATHERS IgE [ADDED]2019 00:00:00* Test Item Value Reference Range Interpretation Comme nts GOOSE FEATHERS IgE (test cod e = 87793) <0.10 KU/L Shawn DiazHEMOGLOBIN [id number] 00:00:00* Test Item Value Reference Range Interpretation Comme nts HEMOGLOBIN A1c (test code = 06769) 7.0 % Shawn [id number] 00:00:00* Test Item Value Reference Range Interpretation Comme nts TSH, THIRD GENERATION (test code = 2821) 1.610 UIU/ML Shawn Guzman AustinCPL ALLERGENS [REFLEX]2019-01-01 00:00:00* Test Item Value Reference Range Interpretation Comme nts INTERPRETATION: (test code = 1989) (NOTE) Shawn DiazHEMOGLOBIN [id number] 00:00:00* Test Item Value Reference Range Interpretation Comme nts HEMOGLOBIN A1c (test code = 89106) 7.0 % Shawn [id number] 00:00:00* Test Item Value Reference Range Interpretation Comme nts TSH, THIRD GENERATION (test code = 2821) 1.610 UIU/ML Shawn DiazCPL ALLERGENS [REFLEX]2019-01-01 00:00:00* Test Item Value Reference Range Interpretation Comme nts INTERPRETATION: (test code = 1989) (NOTE) Shawn Guzman AustinHEMOGLOBIN [id number] 00:00:00* Test Item Value Reference Range Interpretation Comme nts HEMOGLOBIN A1c (test code = 83037) 7.4 % Shawn DiazMICROALBUMIN/CREATININE, RANDOM AND [id number] 00:00:00* Test Item Value Reference Range Interpretation Comme nts CREATININE, URINE, CONC. (te st code = 2072) 56.1 MG/DL ALBUMIN, URINE, RANDOM (test code = 97987) 0.2 MG/DL CALC ALBUMIN/CREAT, RND (selam t code = 26482) 4 MG/G Shawn Guzman AustinLIPID [id number] 00:00:00* Test Item Value Reference Range Interpretation Comme nts CHOLESTEROL (test code = 2210) 138 MG/DL TRIGLYCERIDES (test code = 2232) 119 MG/DL HDL CHOLESTEROL (test code = 2220) 36 MG/DL CALC LDL CHOL (test code = 2237) 78 MG/DL RISK RATIO LDL/HDL (test cod e = 2238) 2.17 RATIO Shawn Guzman AustinHEMOGLOBIN [id number] 00:00:00* Test Item Value Reference Range Interpretation Comme nts HEMOGLOBIN A1c (test code = 74274) 7.4 % Shawn Guzman AustinMICROALBUMIN/CREATININE, RANDOM AND [id number] 00:00:00* Test Item Value Reference Range Interpretation Comme nts CREATININE, URINE, CONC. (te st code = 2072) 56.1 MG/DL ALBUMIN, URINE, RANDOM (test code = 32047) 0.2 MG/DL CALC ALBUMIN/CREAT, RND (selam t code = 77361) 4 MG/G Shawn Guzman AustinLIPID [id number] 00:00:00* Test Item Value Reference Range Interpretation Comme nts CHOLESTEROL (test code = 2210) 138 MG/DL TRIGLYCERIDES (test code = 2232) 119 MG/DL HDL CHOLESTEROL (test code = 2220) 36 MG/DL CALC LDL CHOL (test code = 2237) 78 MG/DL RISK RATIO LDL/HDL (test cod e = 2238) 2.17 RATIO Shawn Guzman AustinHEMOGLOBIN [id number] 00:00:00* Test Item Value Reference Range Interpretation Comme nts HEMOGLOBIN A1c (test code = 23469) 7.9 % Shawn Guzman AustinLIPID [id number] 00:00:00* Test Item Value Reference Range Interpretation Comme nts CHOLESTEROL (test code = 2210) 143 MG/DL TRIGLYCERIDES (test code = 2232) 151 MG/DL HDL CHOLESTEROL (test code = 2220) 36 MG/DL CALC LDL CHOL (test code = 2237) 77 MG/DL RISK RATIO LDL/HDL (test cod e = 2238) 2.13 RATIO Shawn Guzman [id number] 00:00:00* Test Item Value Reference Range Interpretation Comme nts TSH, THIRD GENERATION (test code = 2821) 2.460 UIU/ML Shawn Guzman AustinHEMOGLOBIN [id number] 00:00:00* Test Item Value Reference Range Interpretation Comme nts HEMOGLOBIN A1c (test code = 57611) 7.9 % Shawn Guzman AustinLIPID [id number] 00:00:00* Test Item Value Reference Range Interpretation Comme nts CHOLESTEROL (test code = 2210) 143 MG/DL TRIGLYCERIDES (test code = 2232) 151 MG/DL HDL CHOLESTEROL (test code = 2220) 36 MG/DL CALC LDL CHOL (test code = 2237) 77 MG/DL RISK RATIO LDL/HDL (test cod e = 2238) 2.13 RATIO Shawn [id number] 00:00:00* Test Item Value Reference Range Interpretation Comme nts TSH, THIRD GENERATION (test code = 2821) 2.460 UIU/ML Shawn Guzman [id number] 00:00:00* Test Item Value Reference Range Interpretation Comme nts TSH (test code = 2821) 2.230 UIU/ML Shawn Guzman AustinHEMOGLOBIN [id number] 00:00:00* Test Item Value Reference Range Interpretation Comme nts HEMOGLOBIN A1c (test code = 68797) 7.3 % Shawn [id number] 00:00:00* Test Item Value Reference Range Interpretation Comme nts TSH (test code = 2821) 2.230 UIU/ML Shawn Guzman AustinHEMOGLOBIN [id number] 00:00:00* Test Item Value Reference Range Interpretation Comme nts HEMOGLOBIN A1c (test code = 30706) 7.3 % Shawn Guzman AustinMICROALBUMIN/CREATININE, RANDOM AND [id number] 00:00:00* Test Item Value Reference Range Interpretation Comme nts CREATININE, URINE, CONC. (te st code = 2072) 55.2 MG/DL MICROALBUMIN, RANDOM (test c ode = 41796) <0.2 MG/DL CALC MICROALB/CREAT RND (selam t code = 42216) <4 MG/G Shawn Guzman AustinLIPID [id number] 00:00:00* Test Item Value Reference Range Interpretation Comme nts CHOLESTEROL (test code = 2210) 138 MG/DL TRIGLYCERIDES (test code = 2232) 119 MG/DL HDL CHOLESTEROL (test code = 2220) 37 MG/DL CALC LDL CHOL (test code = 2237) 77 MG/DL RISK RATIO LDL/HDL (test cod e = 2238) 2.09 RATIO Shawn Guzman AustinMICROALBUMIN/CREATININE, RANDOM AND [id number] 00:00:00* Test Item Value Reference Range Interpretation Comme nts CREATININE, URINE, CONC. (te st code = 2071) 55.2 MG/DL MICROALBUMIN, RANDOM (test c ode = 18894) <0.2 MG/DL CALC MICROALB/CREAT RND (selam t code = 54847) <4 MG/G Shawn DiazLIPID [id number] 00:00:00* Test Item Value Reference Range Interpretation Comme nts CHOLESTEROL (test code = 2210) 138 MG/DL TRIGLYCERIDES (test code = 2232) 119 MG/DL HDL CHOLESTEROL (test code = 2220) 37 MG/DL CALC LDL CHOL (test code = 2237) 77 MG/DL RISK RATIO LDL/HDL (test cod e = 2238) 2.09 RATIO Shawn Guzman AustinMICROALBUMIN/CREATININE, RANDOM AND [id number] 00:00:00* Test Item Value Reference Range Interpretation Comme nts CREATININE, URINE, CONC. (test code = 2071) TEST NOT PERFORMED MG/DL MICROALBUMIN, RANDOM (test code = 65171) TEST NOT PERFORMED MG/DL CALC MICROALB/CREAT RND (test code = 55459) TEST NOT PERFORMED MG/G Shawn Guzman AustinMICROALBUMIN/CREATININE, RANDOM AND [id number] 00:00:00* Test Item Value Reference Range Interpretation Comme nts CREATININE, URINE, CONC. (test code = 2071) TEST NOT PERFORMED MG/DL MICROALBUMIN, RANDOM (test code = 60624) TEST NOT PERFORMED MG/DL CALC MICROALB/CREAT RND (test code = 48259) TEST NOT PERFORMED MG/G Shawn DiazCBC W/AUTO [id number] 00:00:00* Test Item Value Reference Range Interpretation Comme nts WBC (test code = 1001) 10.5 K/UL RBC (test code = 1002) 4.28 M/UL HEMOGLOBIN (test code = 1003) 12.9 G/DL HEMATOCRIT (test code = 1004) 36.9 % MCV (test code = 1005) 86.2 fL MCH (test code = 1006) 30.1 PG MCHC (test code = 1007) 35.0 G/DL RDW (test code = 1038) 12.0 % NEUTROPHILS (test code = 1008) 57.0 % LYMPHOCYTES (test code = 1010) 31.8 % MONOCYTES (test code = 1011) 8.9 % EOSINOPHILS (test code = 1012) 1.9 % BASOPHILS (test code = 1013) 0.4 % PLATELET COUNT (test code = 1015) 358 K/UL Shawn DiazHEMOGLOBIN [id number] 00:00:00* Test Item Value Reference Range Interpretation Comme suzy HEMOGLOBIN A1c (test code = 21467) 6.8 % Shawn Guzman [id number] 00:00:00* Test Item Value Reference Range Interpretation Comme nts TSH (test code = 2821) 1.480 UIU/ML Shawn DiazCOMPREHENSIVE METABOLIC [id number] 00:00:00* Test Item Value Reference Range Interpretation Comme nts GLUCOSE (test code = 2217) 118 MG/DL BUN (test code = 2208) 14 MG/DL CREATININE (test code = 2214) 0.92 MG/DL eGFR AMER. (test cod e = 69212) 93 ML/MIN/1.73 eGFR NON- AMER. (test code = 06286) 81 ML/MIN/1.73 CALC BUN/CREAT (test code = 2235) 15 RATIO SODIUM (test code = 2231) 139 MEQ/L POTASSIUM (test code = 2228) 4.0 MEQ/L CHLORIDE (test code = 2215) 102 MEQ/L CARBON DIOXIDE (test code = 2206) 25 MEQ/L CALCIUM (test code = 2209) 9.3 MG/DL PROTEIN, TOTAL (test code = 2229) 7.3 G/DL ALBUMIN (test code = 2201) 4.5 G/DL CALC GLOBULIN (test code = 2240) 2.8 G/DL CALC A/G RATIO (test code = 2234) 1.6 RATIO BILIRUBIN, TOTAL (test code = 2207) 0.2 MG/DL ALKALINE PHOSPHATASE (test code = 2204) 77 U/L AST (test code = 2218) 20 U/L ALT (test code = 2219) 28 U/L Shawn DiazCBC W/AUTO [id number] 00:00:00* Test Item Value Reference Range Interpretation Comme nts WBC (test code = 1001) 10.5 K/UL RBC (test code = 1002) 4.28 M/UL HEMOGLOBIN (test code = 1003) 12.9 G/DL HEMATOCRIT (test code = 1004) 36.9 % MCV (test code = 1005) 86.2 fL MCH (test code = 1006) 30.1 PG MCHC (test code = 1007) 35.0 G/DL RDW (test code = 1038) 12.0 % NEUTROPHILS (test code = 1008) 57.0 % LYMPHOCYTES (test code = 1010) 31.8 % MONOCYTES (test code = 1011) 8.9 % EOSINOPHILS (test code = 1012) 1.9 % BASOPHILS (test code = 1013) 0.4 % PLATELET COUNT (test code = 1015) 358 K/UL Shawn DiazHEMOGLOBIN [id number] 00:00:00* Test Item Value Reference Range Interpretation Comme suzy HEMOGLOBIN A1c (test code = 09994) 6.8 % Shawn [id number] 00:00:00* Test Item Value Reference Range Interpretation Comme nts TSH (test code = 2821) 1.480 UIU/ML Shawn DiazCOMPREHENSIVE METABOLIC [id number] 00:00:00* Test Item Value Reference Range Interpretation Comme nts GLUCOSE (test code = 2217) 118 MG/DL BUN (test code = 2208) 14 MG/DL CREATININE (test code = 2214) 0.92 MG/DL eGFR AMER. (test cod e = 42973) 93 ML/MIN/1.73 eGFR NON- AMER. (test code = 68107) 81 ML/MIN/1.73 CALC BUN/CREAT (test code = 2235) 15 RATIO SODIUM (test code = 2231) 139 MEQ/L POTASSIUM (test code = 2228) 4.0 MEQ/L CHLORIDE (test code = 2215) 102 MEQ/L CARBON DIOXIDE (test code = 2206) 25 MEQ/L CALCIUM (test code = 2209) 9.3 MG/DL PROTEIN, TOTAL (test code = 2229) 7.3 G/DL ALBUMIN (test code = 2201) 4.5 G/DL CALC GLOBULIN (test code = 2240) 2.8 G/DL CALC A/G RATIO (test code = 2234) 1.6 RATIO BILIRUBIN, TOTAL (test code = 2207) 0.2 MG/DL ALKALINE PHOSPHATASE (test code = 2204) 77 U/L AST (test code = 2218) 20 U/L ALT (test code = 2219) 28 U/L Shawn Allen, [id number] 00:00:00* Test Item Value Reference Range Interpretation Comme nts CULTURE, URINE (test code = 83934) SPECIMEN NUMBER: [id number] Shawn DiazCUSANJU, [id number] 00:00:00* Test Item Value Reference Range Interpretation Comme nts CULTURE, URINE (test code = 79210) SPECIMEN NUMBER: [id number] Shawn [id number] 00:00:00* Test Item Value Reference Range Interpretation Comme nts TSH (test code = 2821) 1.500 UIU/ML Shawn Guzman [id number] 00:00:00* Test Item Value Reference Range Interpretation Comme nts TSH (test code = 2821) 1.500 UIU/ML Shawn Guzman AustinGC AND CHLAMYDIA AMPLIFIED, [id number] 00:00:00* Test Item Value Reference Range Interpretation Comme nts GONORRHEA, TMA (test code = 40348) NEGATIVE CHLAMYDIA, TMA (test code = 21017) NEGATIVE Shawn DiazLIPID [id number] 00:00:00* Test Item Value Reference Range Interpretation Comme nts CHOLESTEROL (test code = 2210) 154 MG/DL TRIGLYCERIDES (test code = 2232) 299 MG/DL HDL CHOLESTEROL (test code = 2220) 36 MG/DL CALC LDL CHOL (test code = 2237) 58 MG/DL RISK RATIO LDL/HDL (test cod e = 2238) 1.62 RATIO Shawn DiazPAP TEST, THINPREP, [id number] 00:00:00* Test Item Value Reference Range Interpretation Comme nts SOURCE: (test code = 8001) Cervical/Endocervical SLIDES: (test code = 8011) 1 LMP: (test code = 8021) NOT GIVEN SPECIMEN ADEQUACY: (test code = 55433) (NOTE) INTERPRETATION: (test code = 84439) NO EPITHELIAL ABNORMALITY SEE BELOW BAG CHECKER: (test code = 8101) BEBA MONTILLA(ASCP) LOCATION: (test code = 79727) (NOTE) CPT: (test code = 8140) (NOTE) Shawn DiazHPV HIGH RISK WITH GENOTYPE, [id number] 00:00:00* Test Item Value Reference Range Interpretation Comme nts HPV HIGH RISK INTERP (test c ode = 00780) NEGATIVE HPV 16 (test code = 19478) NEGATIVE HPV 18 (test code = 67862) NEGATIVE HPV, HR, OTHER GENOTYPES (te st code = 40131) NEGATIVE Shawn DiazCBC W/AUTO [id number] 00:00:00* Test Item Value Reference Range Interpretation Comme nts WBC (test code = 1001) 9.5 K/UL RBC (test code = 1002) 4.37 M/UL HEMOGLOBIN (test code = 1003) 13.4 G/DL HEMATOCRIT (test code = 1004) 39.0 % MCV (test code = 1005) 89.2 fL MCH (test code = 1006) 30.7 PG MCHC (test code = 1007) 34.4 G/DL RDW (test code = 1038) 12.1 % NEUTROPHILS (test code = 1008) 57.7 % LYMPHOCYTES (test code = 1010) 31.5 % MONOCYTES (test code = 1011) 7.5 % EOSINOPHILS (test code = 1012) 2.9 % BASOPHILS (test code = 1013) 0.4 % PLATELET COUNT (test code = 1015) 387 K/UL Shawn DiazHEMOGLOBIN [id number] 00:00:00* Test Item Value Reference Range Interpretation Comme nts HEMOGLOBIN A1c (test code = 69560) 6.2 % Shawn [id number] 00:00:00* Test Item Value Reference Range Interpretation Comme nts TSH (test code = 2821) 1.73 UIU/ML Shawn DiazHIV AB/AG COMBO RFLX [id number] 00:00:00* Test Item Value Reference Range Interpretation Comme nts HIV 1/2 4TH GEN, RFLX CONF ( test code = 3514) NON-REACTIVE Shawn [id number] 00:00:00* Test Item Value Reference Range Interpretation Comme nts RPR RESULT (test code = 3501) NON-REACTIVE RPR TITER (test code = 3500) NOT INDIC. TITER Shawn DiazACUTE HEPATITIS [id number] 00:00:00* Test Item Value Reference Range Interpretation Comme nts HEPATITIS A IgM (test code = 67937) NON-REACTIVE HEPATITIS B CORE IgM (test c ode = 4697) NON-REACTIVE HEPATITIS B SURF AG (test co de = 1319) NON-REACTIVE HEPATITIS C ANTIBODY (test c ode = 7181) NON-REACTIVE INTERPRETATION HEPATITIS A: (test code = 2552) (NOTE) INTERPRETATION HEPATITIS B: (test code = 58123) (NOTE) INTERPRETATION HEPATITIS C: (test code = 23064) (NOTE) Shawn DiazCOMPREHENSIVE METABOLIC [id number] 00:00:00* Test Item Value Reference Range Interpretation Comme nts GLUCOSE (test code = 2217) 97 MG/DL BUN (test code = 2208) 14 MG/DL CREATININE (test code = 2214) 0.62 MG/DL eGFR AMER. (test cod e = 84242) 135 ML/MIN/1.73 eGFR NON- AMER. (test code = 99640) 117 ML/MIN/1.73 CALC BUN/CREAT (test code = 2235) 23 RATIO SODIUM (test code = 2231) 141 MEQ/L POTASSIUM (test code = 2228) 4.3 MEQ/L CHLORIDE (test code = 2215) 101 MEQ/L CARBON DIOXIDE (test code = 2206) 26 MEQ/L CALCIUM (test code = 2209) 9.1 MG/DL PROTEIN, TOTAL (test code = 2229) 7.2 G/DL ALBUMIN (test code = 2201) 4.4 G/DL CALC GLOBULIN (test code = 2240) 2.8 G/DL CALC A/G RATIO (test code = 2234) 1.6 RATIO BILIRUBIN, TOTAL (test code = 2207) 0.2 MG/DL ALKALINE PHOSPHATASE (test code = 2204) 94 U/L AST (test code = 2218) 15 U/L ALT (test code = 2219) 19 U/L Shawn DiazGC AND CHLAMYDIA AMPLIFIED, [id number] 00:00:00* Test Item Value Reference Range Interpretation Comme nts GONORRHEA, TMA (test code = 69909) NEGATIVE CHLAMYDIA, TMA (test code = 78877) NEGATIVE Shawn DiazLIPID [id number] 00:00:00* Test Item Value Reference Range Interpretation Comme nts CHOLESTEROL (test code = 2210) 154 MG/DL TRIGLYCERIDES (test code = 2232) 299 MG/DL HDL CHOLESTEROL (test code = 2220) 36 MG/DL CALC LDL CHOL (test code = 2237) 58 MG/DL RISK RATIO LDL/HDL (test cod e = 2238) 1.62 RATIO Shawn DiazPAP TEST, THINPREP, [id number] 00:00:00* Test Item Value Reference Range Interpretation Comme nts SOURCE: (test code = 8001) Cervical/Endocervical SLIDES: (test code = 8011) 1 LMP: (test code = 8021) NOT GIVEN SPECIMEN ADEQUACY: (test code = 21771) (NOTE) INTERPRETATION: (test code = 88439) NO EPITHELIAL ABNORMALITY SEE BELOW BAG CHECKER: (test code = 8101) BEBA MONTILLA(ASCP) LOCATION: (test code = 75795) (NOTE) CPT: (test code = 8140) (NOTE) Shawnmel DiazHPV HIGH RISK WITH GENOTYPE, [id number] 00:00:00* Test Item Value Reference Range Interpretation Comme nts HPV HIGH RISK INTERP (test c ode = 75929) NEGATIVE HPV 16 (test code = 77009) NEGATIVE HPV 18 (test code = 65245) NEGATIVE HPV, HR, OTHER GENOTYPES (te st code = 31248) NEGATIVE Shawn Guzman JoeCBC W/AUTO [id number] 00:00:00* Test Item Value Reference Range Interpretation Comme nts WBC (test code = 1001) 9.5 K/UL RBC (test code = 1002) 4.37 M/UL HEMOGLOBIN (test code = 1003) 13.4 G/DL HEMATOCRIT (test code = 1004) 39.0 % MCV (test code = 1005) 89.2 fL MCH (test code = 1006) 30.7 PG MCHC (test code = 1007) 34.4 G/DL RDW (test code = 1038) 12.1 % NEUTROPHILS (test code = 1008) 57.7 % LYMPHOCYTES (test code = 1010) 31.5 % MONOCYTES (test code = 1011) 7.5 % EOSINOPHILS (test code = 1012) 2.9 % BASOPHILS (test code = 1013) 0.4 % PLATELET COUNT (test code = 1015) 387 K/UL Shawn DiazHEMOGLOBIN [id number] 00:00:00* Test Item Value Reference Range Interpretation Comme nts HEMOGLOBIN A1c (test code = 80566) 6.2 % Shawn [id number] 00:00:00* Test Item Value Reference Range Interpretation Comme suzy TSH (test code = 2821) 1.73 UIU/ML Shawn DiazHIV AB/AG COMBO RFLX [id number] 00:00:00* Test Item Value Reference Range Interpretation Comme nts HIV 1/2 4TH GEN, RFLX CONF ( test code = 3514) NON-REACTIVE Shawn [id number] 00:00:00* Test Item Value Reference Range Interpretation Comme nts RPR RESULT (test code = 3501) NON-REACTIVE RPR TITER (test code = 3500) NOT INDIC. TITER Shawn DiazACUTE HEPATITIS [id number] 00:00:00* Test Item Value Reference Range Interpretation Comme nts HEPATITIS A IgM (test code = 71146) NON-REACTIVE HEPATITIS B CORE IgM (test c ode = 4644) NON-REACTIVE HEPATITIS B SURF AG (test co de = 2739) NON-REACTIVE HEPATITIS C ANTIBODY (test c ode = 4675) NON-REACTIVE INTERPRETATION HEPATITIS A: (test code = 2552) (NOTE) INTERPRETATION HEPATITIS B: (test code = 02615) (NOTE) INTERPRETATION HEPATITIS C: (test code = 44708) (NOTE) Shawn DiazCOMPREHENSIVE METABOLIC [id number] 00:00:00* Test Item Value Reference Range Interpretation Comme nts GLUCOSE (test code = 2217) 97 MG/DL BUN (test code = 2208) 14 MG/DL CREATININE (test code = 2214) 0.62 MG/DL eGFR AMER. (test cod e = 31947) 135 ML/MIN/1.73 eGFR NON- AMER. (test code = 67787) 117 ML/MIN/1.73 CALC BUN/CREAT (test code = 2235) 23 RATIO SODIUM (test code = 2231) 141 MEQ/L POTASSIUM (test code = 2228) 4.3 MEQ/L CHLORIDE (test code = 2215) 101 MEQ/L CARBON DIOXIDE (test code = 2206) 26 MEQ/L CALCIUM (test code = 2209) 9.1 MG/DL PROTEIN, TOTAL (test code = 2229) 7.2 G/DL ALBUMIN (test code = 2201) 4.4 G/DL CALC GLOBULIN (test code = 2240) 2.8 G/DL CALC A/G RATIO (test code = 2234) 1.6 RATIO BILIRUBIN, TOTAL (test code = 2207) 0.2 MG/DL ALKALINE PHOSPHATASE (test code = 2204) 94 U/L AST (test code = 2218) 15 U/L ALT (test code = 2219) 19 U/L Shawn Guzman [id number] 00:00:00* Test Item Value Reference Range Interpretation Comme nts TSH (test code = 2821) 1.0 UIU/ML Shawn Guzman BowlegsHEMOGLOBIN [id number] 00:00:00* Test Item Value Reference Range Interpretation Comme nts HEMOGLOBIN A1c (test code = 35644) 6.5 % Shawn Guzman [id number] 00:00:00* Test Item Value Reference Range Interpretation Comme nts TSH (test code = 2821) 1.0 UIU/ML Shawn Guzman BowlegsHEMOGLOBIN [id number] 00:00:00* Test Item Value Reference Range Interpretation Comme nts HEMOGLOBIN A1c (test code = 94332) 6.5 % Shawn Guzman BowlegsCOMPREHENSIVE METABOLIC [id number] 00:00:00* Test Item Value Reference Range Interpretation Comme nts GLUCOSE (test code = 2217) 134 MG/DL BUN (test code = 2208) 12 MG/DL CREATININE (test code = 2214) 0.62 MG/DL eGFR AMER. (test cod e = 66455) 137 ML/MIN/1.73 eGFR NON- AMER. (test code = 09455) 118 ML/MIN/1.73 CALCULATED BUN/CREAT (test code = 2235) 19 RATIO SODIUM (test code = 2231) 138 MEQ/L POTASSIUM (test code = 2228) 4.3 MEQ/L CHLORIDE (test code = 2215) 106 MEQ/L CARBON DIOXIDE (test code = 2206) 20 MEQ/L CALCIUM (test code = 2209) 9.2 MG/DL PROTEIN, TOTAL (test code = 2229) 6.9 G/DL ALBUMIN (test code = 2201) 4.1 G/DL CALCULATED GLOBULIN (test code = 2240) 2.8 G/DL CALCULATED A/G RATIO (test code = 2234) 1.5 RATIO BILIRUBIN, TOTAL (test code = 2207) 0.3 MG/DL ALKALINE PHOSPHATASE (test code = 2204) 72 U/L SGOT (AST) (test code = 2218) 11 U/L SGPT (ALT) (test code = 2219) 10 U/L Shawn DiazLIPID [id number] 00:00:00* Test Item Value Reference Range Interpretation Comme nts CHOLESTEROL (test code = 2210) 128 MG/DL TRIGLYCERIDES (test code = 2232) 126 MG/DL HDL CHOLESTEROL (test code = 2220) 39 MG/DL CALCULATED LDL CHOL (test co de = 2237) 64 MG/DL RISK RATIO LDL/HDL (test cod e = 2238) 1.64 RATIO Shawn DiazCBC W/AUTO [id number] 00:00:00* Test Item Value Reference Range Interpretation Comme nts WBC (test code = 1001) 7.3 K/UL RBC (test code = 1002) 4.20 M/UL HEMOGLOBIN (test code = 1003) 12.6 G/DL HEMATOCRIT (test code = 1004) 37.6 % MCV (test code = 1005) 89.5 fL MCH (test code = 1006) 30.0 PG MCHC (test code = 1007) 33.5 G/DL RDW (test code = 1038) 13.4 % NEUTROPHILS (test code = 1008) 57 % LYMPHOCYTES (test code = 1010) 33 % MONOCYTES (test code = 1011) 7 % EOSINOPHILS (test code = 1012) 3 % PLATELET COUNT (test code = 1015) 324 K/UL Shawn DiazHEMOGLOBIN [id number] 00:00:00* Test Item Value Reference Range Interpretation Comme nts HEMOGLOBIN A1c (test code = 29656) 6.6 % Shawn [id number] 00:00:00* Test Item Value Reference Range Interpretation Comme nts TSH (test code = 2821) 0.9 UIU/ML Shawn DiazCOMPREHENSIVE METABOLIC [id number] 00:00:00* Test Item Value Reference Range Interpretation Comme nts GLUCOSE (test code = 2217) 134 MG/DL BUN (test code = 2208) 12 MG/DL CREATININE (test code = 2214) 0.62 MG/DL eGFR AMER. (test cod e = 49753) 137 ML/MIN/1.73 eGFR NON- AMER. (test code = 65837) 118 ML/MIN/1.73 CALCULATED BUN/CREAT (test code = 2235) 19 RATIO SODIUM (test code = 2231) 138 MEQ/L POTASSIUM (test code = 2228) 4.3 MEQ/L CHLORIDE (test code = 2215) 106 MEQ/L CARBON DIOXIDE (test code = 2206) 20 MEQ/L CALCIUM (test code = 2209) 9.2 MG/DL PROTEIN, TOTAL (test code = 2229) 6.9 G/DL ALBUMIN (test code = 2201) 4.1 G/DL CALCULATED GLOBULIN (test code = 2240) 2.8 G/DL CALCULATED A/G RATIO (test code = 2234) 1.5 RATIO BILIRUBIN, TOTAL (test code = 2207) 0.3 MG/DL ALKALINE PHOSPHATASE (test code = 2204) 72 U/L SGOT (AST) (test code = 2218) 11 U/L SGPT (ALT) (test code = 2219) 10 U/L Shawn DiazLIPID [id number] 00:00:00* Test Item Value Reference Range Interpretation Comme nts CHOLESTEROL (test code = 2210) 128 MG/DL TRIGLYCERIDES (test code = 2232) 126 MG/DL HDL CHOLESTEROL (test code = 2220) 39 MG/DL CALCULATED LDL CHOL (test co de = 2237) 64 MG/DL RISK RATIO LDL/HDL (test cod e = 2238) 1.64 RATIO Shawn DiazCBC W/AUTO [id number] 00:00:00* Test Item Value Reference Range Interpretation Comme nts WBC (test code = 1001) 7.3 K/UL RBC (test code = 1002) 4.20 M/UL HEMOGLOBIN (test code = 1003) 12.6 G/DL HEMATOCRIT (test code = 1004) 37.6 % MCV (test code = 1005) 89.5 fL MCH (test code = 1006) 30.0 PG MCHC (test code = 1007) 33.5 G/DL RDW (test code = 1038) 13.4 % NEUTROPHILS (test code = 1008) 57 % LYMPHOCYTES (test code = 1010) 33 % MONOCYTES (test code = 1011) 7 % EOSINOPHILS (test code = 1012) 3 % PLATELET COUNT (test code = 1015) 324 K/UL Shawn DiazHEMOGLOBIN [id number] 00:00:00* Test Item Value Reference Range Interpretation Comme nts HEMOGLOBIN A1c (test code = 53506) 6.6 % Shawn [id number] 00:00:00* Test Item Value Reference Range Interpretation Comme nts TSH (test code = 2821) 0.9 UIU/ML Shawn Guzman AustinTHYROID II PROFILE (T3U, T4, T7, TSH)2015-08-24 00:00:00* Test Item Value Reference Range Interpretation Comme nts T3 UPTAKE (test code = 2817) 26.8 % T4 (THYROXINE) (test code = 2819) 9.4 UG/DL CALCULATED T7 (FTI) (test co de = 2820) 2.52 TSH (test code = 2821) 1.4 UIU/ML Shawn Guzman AustinTHYROID II PROFILE (T3U, T4, T7, TSH)2015-08-24 00:00:00* Test Item Value Reference Range Interpretation Comme nts T3 UPTAKE (test code = 2817) 26.8 % T4 (THYROXINE) (test code = 2819) 9.4 UG/DL CALCULATED T7 (FTI) (test co de = 2820) 2.52 TSH (test code = 2821) 1.4 UIU/ML Shawn Guzman AustinTHYROID II PROFILE (T3U, T4, T7, TSH)2015-06-11 00:00:00* Test Item Value Reference Range Interpretation Comme nts T3 UPTAKE (test code = 2817) 29.5 % T4 (THYROXINE) (test code = 2819) 10.7 UG/DL CALCULATED T7 (FTI) (test co de = 2820) 3.16 TSH (test code = 2821) 1.7 UIU/ML Shawn Guzman AustinTHYROID II PROFILE (T3U, T4, T7, TSH)2015-06-11 00:00:00* Test Item Value Reference Range Interpretation Comme nts T3 UPTAKE (test code = 2817) 29.5 % T4 (THYROXINE) (test code = 2819) 10.7 UG/DL CALCULATED T7 (FTI) (test co de = 2820) 3.16 TSH (test code = 2821) 1.7 UIU/ML Shawn DiazTHYROID II PROFILE (T3U, T4, T7, TSH)2015-04-26 00:00:00* Test Item Value Reference Range Interpretation Comme nts T3 UPTAKE (test code = 2817) 30.4 % T4 (THYROXINE) (test code = 2819) 11.0 UG/DL CALCULATED T7 (FTI) (test co de = 2820) 3.34 TSH (test code = 2821) 0.4 UIU/ML Shawn DiazTHYROID II PROFILE (T3U, T4, T7, TSH)2015-04-26 00:00:00* Test Item Value Reference Range Interpretation Comme nts T3 UPTAKE (test code = 2817) 30.4 % T4 (THYROXINE) (test code = 2819) 11.0 UG/DL CALCULATED T7 (FTI) (test co de = 2820) 3.34 TSH (test code = 2821) 0.4 UIU/ML Shawn Guzman AustinLIPID [id number] 00:00:00* Test Item Value Reference Range Interpretation Comme nts CHOLESTEROL (test code = 2210) 144 MG/DL TRIGLYCERIDES (test code = 2232) 101 MG/DL HDL CHOLESTEROL (test code = 2220) 48 MG/DL CALCULATED LDL CHOL (test co de = 2237) 76 MG/DL RISK RATIO LDL/HDL (test cod e = 2238) 1.58 RATIO Shawn Guzman AustinCBC W/AUTO [id number] 00:00:00* Test Item Value Reference Range Interpretation Comme nts WBC (test code = 1001) 7.5 K/UL RBC (test code = 1002) 4.43 M/UL HEMOGLOBIN (test code = 1003) 13.0 G/DL HEMATOCRIT (test code = 1004) 39.2 % MCV (test code = 1005) 88.5 fL MCH (test code = 1006) 29.3 PG MCHC (test code = 1007) 33.2 G/DL RDW (test code = 1038) 12.6 % NEUTROPHILS (test code = 1008) 58 % LYMPHOCYTES (test code = 1010) 34 % MONOCYTES (test code = 1011) 6 % EOSINOPHILS (test code = 1012) 2 % PLATELET COUNT (test code = 1015) 334 K/UL Shawn DiazHEMOGLOBIN [id number] 00:00:00* Test Item Value Reference Range Interpretation Comme nts HEMOGLOBIN A1c (test code = 03313) 6.5 % Shawn DiazCOMPREHENSIVE METABOLIC [id number] 00:00:00* Test Item Value Reference Range Interpretation Comme nts GLUCOSE (test code = 2217) 117 MG/DL BUN (test code = 2208) 12 MG/DL CREATININE (test code = 2214) 0.7 MG/DL eGFR AMER. (test cod e = 84020) 117 ML/MIN/1.73 eGFR NON- AMER. (test code = 99035) 96 ML/MIN/1.73 CALCULATED BUN/CREAT (test code = 2235) 17 RATIO SODIUM (test code = 2231) 137 MEQ/L POTASSIUM (test code = 2228) 4.2 MEQ/L CHLORIDE (test code = 2215) 105 MEQ/L CARBON DIOXIDE (test code = 2206) 23 MEQ/L CALCIUM (test code = 2209) 9.2 MG/DL PROTEIN, TOTAL (test code = 2229) 6.9 G/DL ALBUMIN (test code = 2201) 4.2 G/DL CALCULATED GLOBULIN (test code = 2240) 2.7 G/DL CALCULATED A/G RATIO (test code = 2234) 1.6 RATIO BILIRUBIN, TOTAL (test code = 2207) 0.6 MG/DL ALKALINE PHOSPHATASE (test code = 2204) 79 U/L SGOT (AST) (test code = 2218) 14 U/L SGPT (ALT) (test code = 2219) 14 U/L Shawn DiazTHYROID II PROFILE (T3U, T4, T7, TSH)2015-02-23 00:00:00* Test Item Value Reference Range Interpretation Comme nts T3 UPTAKE (test code = 2817) 25.8 % T4 (THYROXINE) (test code = 2819) 5.8 UG/DL CALCULATED T7 (FTI) (test co de = 2820) 1.50 TSH (test code = 2821) 6.8 UIU/ML Shawn DiazLIPID [id number] 00:00:00* Test Item Value Reference Range Interpretation Comme nts CHOLESTEROL (test code = 2210) 144 MG/DL TRIGLYCERIDES (test code = 2232) 101 MG/DL HDL CHOLESTEROL (test code = 2220) 48 MG/DL CALCULATED LDL CHOL (test co de = 2237) 76 MG/DL RISK RATIO LDL/HDL (test cod e = 2238) 1.58 RATIO Shawn DiazCBC W/AUTO [id number] 00:00:00* Test Item Value Reference Range Interpretation Comme nts WBC (test code = 1001) 7.5 K/UL RBC (test code = 1002) 4.43 M/UL HEMOGLOBIN (test code = 1003) 13.0 G/DL HEMATOCRIT (test code = 1004) 39.2 % MCV (test code = 1005) 88.5 fL MCH (test code = 1006) 29.3 PG MCHC (test code = 1007) 33.2 G/DL RDW (test code = 1038) 12.6 % NEUTROPHILS (test code = 1008) 58 % LYMPHOCYTES (test code = 1010) 34 % MONOCYTES (test code = 1011) 6 % EOSINOPHILS (test code = 1012) 2 % PLATELET COUNT (test code = 1015) 334 K/UL Shawn DiazHEMOGLOBIN [id number] 00:00:00* Test Item Value Reference Range Interpretation Comme suzy HEMOGLOBIN A1c (test code = 49997) 6.5 % Shawn DiazCOMPREHENSIVE METABOLIC [id number] 00:00:00* Test Item Value Reference Range Interpretation Comme nts GLUCOSE (test code = 2217) 117 MG/DL BUN (test code = 2208) 12 MG/DL CREATININE (test code = 2214) 0.7 MG/DL eGFR AMER. (test cod e = 88890) 117 ML/MIN/1.73 eGFR NON- AMER. (test code = 24686) 96 ML/MIN/1.73 CALCULATED BUN/CREAT (test code = 2235) 17 RATIO SODIUM (test code = 2231) 137 MEQ/L POTASSIUM (test code = 2228) 4.2 MEQ/L CHLORIDE (test code = 2215) 105 MEQ/L CARBON DIOXIDE (test code = 2206) 23 MEQ/L CALCIUM (test code = 2209) 9.2 MG/DL PROTEIN, TOTAL (test code = 2229) 6.9 G/DL ALBUMIN (test code = 2201) 4.2 G/DL CALCULATED GLOBULIN (test code = 2240) 2.7 G/DL CALCULATED A/G RATIO (test code = 2234) 1.6 RATIO BILIRUBIN, TOTAL (test code = 2207) 0.6 MG/DL ALKALINE PHOSPHATASE (test code = 2204) 79 U/L SGOT (AST) (test code = 2218) 14 U/L SGPT (ALT) (test code = 2219) 14 U/L Shawn DiazTHYROID II PROFILE (T3U, T4, T7, TSH)2015-02-23 00:00:00* Test Item Value Reference Range Interpretation Comme nts T3 UPTAKE (test code = 2817) 25.8 % T4 (THYROXINE) (test code = 2819) 5.8 UG/DL CALCULATED T7 (FTI) (test co de = 2820) 1.50 TSH (test code = 2821) 6.8 UIU/ML Shawn Diaz Notes Date/Time Note Provider Source 2024-03-12 00:00:00 [id number]/[id number] T00:00:00+ + +| Plan Activity | Plan Date |+ + +| Continue Glipizide/Metformin 5/500 mg BID, does not need refills. | 2015-11-28 || ADA diet and 30 mins daily activity. | || F/u after May 16 to repeat A1C. | |+ + +| Increase Exercise to 3-5 times a week for at least 45 minutes | 2015-11-28 || High Fiber Low Calorie Diet | || Reduce Carbohydrates | || Increase Vegetables | || 5-6 small healthy meals a day | || Appended: 2015-12-12 | || Low fat, low carbohydrate diet. | || Eat 5 to 6 kat meals daily | || Drink at least 8-10 glasses of water daily | || Regular exercise ( at least 30 minutes daily ) | || Appended: 2016-05-24 | || control portions , low caloric , low carbohydrates diet | || manage weight . | || Appended: 2016-06-23 | || control portions , manage weight | || daily exercise , healthy diet | |+ + +| Condoms Provided | 2015-11-28 || Counseled on STDS | || Counseled on Control Methods other than Condoms | || Counseled on Compliance with Contraceptive regimen | || Confirms no sexual activity within two weeks of refill | || UPT - Neg | || Counseled on Compliance with contraceptive regimen to avoid | |+ + +| Amoxicillin 500 mg PO Q12 x 7 days | 2015-12-12 || Pseudoephedrine 30 mg daily for ear pressure | |+ + +| 1. augmentin orally x 10 days | 2016-02-11 || 2. Ibuprofen /tylenol for pain | || 3/ RTC for any worsening /new symptoms as needed | |+ + +| 1. cortisporin Otic drops 4 drops tid b/l ears x 10 days | 2016-02-11 || 2. keep the ear clean and dry . | || 3. avoid inserting any objects to the ears . | |+ + +| Augmentin every 12 hours by mouth for 10 days. | 2016-08-13 || Antibiotics do not relieve pain in the first 24 hours | || Discussed purpose and side effects of prescribed medications. | || Apply a warm compress to the affected ear. Get a clean towel and soak it in | || warm water. Ensure that the towel is not too hot. Place the warm towel over the | || infected ear and wait until it cools down. This will help to relieve pain, | || without having to take pain-relieving drugs. It also increases blood flow to | || the infected area, which leads to faster recovery. | || Swallowing to help the Eustachian tube ventilate | || Return to clinic if symptoms worsen over the next 7 days. | || Call 911 for emergency medical transport if a person has a temperature equal to | || or greater than 104 F (40 C), is confused, or is not responding to verbal | || stimuli or commands. | || Appended: 2017-06-16 | || Amoxicillin for ear infection | || Antibiotics do not relieve pain in the first 24 hours | || Discussed purpose and side effects of prescribed medications. | || Apply a warm compress to the affected ear. Get a clean towel and soak it in | || warm water. Ensure that the towel is not too hot. Place the warm towel over the | || infected ear and wait until it cools down. This will help to relieve pain, | || without having to take pain-relieving drugs. It also increases blood flow to | || the infected area, which leads to faster recovery. | || Swallowing to help the Eustachian tube ventilate | || Return to clinic if symptoms worsen over the next 7 days. | || Call 911 for emergency medical transport if a person has a temperature equal to | || or greater than 104 F (40 C), is confused, or is not responding to verbal | || stimuli or commands. | |+ + +| ABT as prescribed | 2016-08-23 || use cotton wick to facilitate passage of medication to the ear canal | || avoid prolonged ear exposure to warm humid climate . | || keep the ear clean and dry . | || Avoid swimming in contaminated water | || Washing the hands before touching the ears | || Dry the ear completely after exposure to moist conditions | || Wear ear plugs while swimming | || Avoid scratching the ears | || Avoid use of cotton swabs or other objects in the ea | || RTC failure to improve symptoms or any worsening symptoms | |+ + +| ABT as prescribed . keep the ear clean and dry | 2016-08-26 || RTC as scheduled for chronic management | |+ + +| Control portions , manage weight | 2016-08-26 || Increase Exercise to 3-5 times a week for at least 45 minutes | || High Fiber Low Calorie Diet Reduce Carbohydrates | || Increase Vegetables 5-6 small healthy meals a day | || Discussed the risks involved in increasing weight and insulin resistance | |+ + +| Mupirocin ointment in ears twice daily for 7 days | 2016-12-27 || avoid prolonged ear exposure to warm humid climate . | || keep the ear clean and dry . | || Avoid swimming in contaminated water | || Washing the hands before touching the ears | || Dry the ear completely after exposure to moist conditions | || Wear ear plugs while swimming | || Avoid scratching the ears | || Avoid use of cotton swabs or other objects in the ea | || RTC failure to improve symptoms or any worsening symptoms | |+ + +| 43 y/o WWE | 2017-02-11 || CBE normal | |+ + +| Limit fat intake to no more than 20% to 35% of your total calorie intake. For a | 2017-02-11 || person following a 1,800-calorie diet, this means eating no more than 40 to 70 | || grams of fat each day. | || Choose complex carbohydrates, such as whole grains, vegetables, and fruits. | || About 45% to 65% of your total calorie intake should come from carbohydrate. | || For someone following a 1,800-calorie diet, this means eating about 200 to 300 | || grams of carbohydrate each day. | || Choose low-fat protein sources, such as fish, poultry, and legumes (for | || example, manning beans, lentils, and split peas). About 10% to 35% of your total | || calorie intake should come from protein. For someone following a 1,800-calorie | || diet, this means eating about 45 to 160 grams of protein each day. | || Get enough fiber each day. Men should aim for 38 grams a day, and women should | || aim for 25 grams a day. | || Have no more than 1 alcohol drink a day for women and 2 alcohol drinks a day | || for men. | |+ + +| RTC on annual exam | 2017-03-01 || Immunizations as age indicated | || Annual well adult with PCP as indicated | || Await diagnostic results | |+ + +| Bactrim DS | 2017-03-01 || Antibiotics do not relieve pain in the first 24 hours | || Discussed purpose and side effects of prescribed medications. | || Apply a warm compress to the affected ear. Get a clean towel and soak it in | || warm water. Ensure that the towel is not too hot. Place the warm towel over the | || infected ear and wait until it cools down. This will help to relieve pain, | || without having to take pain-relieving drugs. It also increases blood flow to | || the infected area, which leads to faster recovery. | || Swallowing to help the Eustachian tube ventilate | || Return to clinic if symptoms worsen over the next 7 days. | || Call 911 for emergency medical transport if a person has a temperature equal to | || or greater than 104 F (40 C), is confused, or is not responding to verbal | || stimuli or commands. | |+ + +| loratadine 10 mg 1 tablet by mouth DAILY | 2017-06-16 || Avoid exposure to cigarette smoke or fumes. | || Over the counter saline nasal spray can help "wash" offending | || particles away. | || Reduce flare-ups by identifying the allergens that affect you and avoiding | || exposure to them. Common allergens include trees, pollen, dust mites, animal | || fur, mold, and insects. | || Remove the offending allergen (for example: frequent vacuuming, dusting, change | || air conditioner filter frequently, washing bed sheets, and pet control). | || Discussed purpose and side effects of prescribed medications. | || Return to clinic if symptoms worsen over the next 7 days and in three months | || for chronic management | |+ + +| citalopram 20 mg 1 tablet by mouth DAILY | 2017-06-16 || Discussed medication purpose and side effects. | || Referral to behavioral health | || Stick to your treatment plan. Don't skip psychotherapy sessions or | || appointments. Even if you're feeling well, don't skip your | || medications. If you stop, depression symptoms may come back, and you could also | || experience withdrawal-like symptoms. | || Learn about depression. Education about your condition can empower you and | || motivate you to stick to your treatment plan. Encourage your family to learn | || about depression to help them understand and support you. | || Pay attention to warning signs. Work with your doctor or therapist to learn | || what might trigger your depression symptoms. Make a plan so that you know what | || to do if your symptoms get worse. Contact your doctor or therapist if you | || notice any changes in symptoms or how you feel. Ask relatives or friends to | || help watch for warning signs. | || Avoid alcohol and recreational drugs. It may seem like alcohol or drugs lessen | || depression symptoms, but in the long run they generally worsen symptoms and | || make depression harder to treat. Talk with your doctor or therapist if you need | || help with alcohol or substance use. | || Take care of yourself. Eat healthy, be physically active and get plenty of | || sleep. Consider walking, jogging, swimming, gardening or another activity that | || you enjoy. Sleeping well is important for both your physical and mental | || well-being. If you're having trouble sleeping, talk to your doctor about | || what you can do. | || Return to clinic in three months for chronic management. | |+ + +| Urinalysis- leukocytes and blood . Urine C/S Results will be called and | 2017-08-14 || addressed | || Take ABT as Prescribed.OTC pyridium for bladder pain and spasm . Med SE as per | || pharmacy | || Take Tylenol/Ibuprofen for back pain and fever | || Avoid caffeine, or alcohol until symptoms are resolved, plenty of fluids to | || flush the bladder, | || Continue to drink 6-8 glasses of water after resolution to prevent future | || infection, | || drink craneberry juice to aid with the healing process, | || Urinate before and after intercourse, wear cotton underwear and avoid bubble | || bathing or douching | || RTC if symptoms persist after ABT | |+ + +| weight and height disproportionate | 2021-11-14 || Obesity Class III | || Therapeutic lifestyle changes required | || RTC for weight management discussion | |+ + +| CMP | 2018-07-03 || A1C 9.6% 01/2024 | || | || Lisinopril 5 mg qd | || Diabetic foot exam done | |+ + +| Permethrin 5% topical cream thoroughly message cream into the skin from the | 2018-11-20 || head to the soles of feet. Remove cream by shower or bath after 8-14 hours. | || Wash all clothing, bedding, towels, etc. used within the last 4 days. | || Maintain good personal hygiene. | || Return to clinic in 7 days if symptoms persist. | || Discussed purpose and side effects of prescribed medications. | |+ + +| Most likely 2/2 atopic dermatits/eczema vs contact dermatitis | 2021-11-14 || Triamcinolone 0.1% topical BID x 14 days | || RTC in 14 days if symptoms persist or worsen | |+ + +| breast exam normal | 2019-11-23 |+ + +| STD panel done today | 2019-11-23 || awaiting results | |+ + +| IUD strings visible at OS. appears to be in place | 2019-11-23 || RTO for removal and reinsertion of new IUD | |+ + +| advised to schedule for IUD mirena placement | 2020-01-04 |+ + +| IUD insertion today, see procedure note | 2020-01-06 || UPT negative, urine sent for GC/Chlam | || RTO 2w for string check | |+ + +| IUD string visualized | 2020-02-06 || RTO PRN | |+ + +| BMI helps pt to qualilfy for monocolonial antibody infusions and she is | 2020-06-09 || interested if + | || RTO entered for COVID testing | || Continue practicing social distancing, self quarantine, and monitor symptoms | || Results returning 7-10 days secondary to high volume of [place] Testing Priority | || results as designated by CDC returning up to 3 days | || Check Patient Portal for negative results 7-10 days or await SMS messaging | || Positive Results will be called to patient to begin isolation, receive ER | || precautions and follow up Telehealth appointments. Positive results will be | || notified to the [facility] Department to determine contact tracing | || Continue self quarantine as indicated until results return, social distancing, | || hand hygiene and enforced mask wearing Proceed to your nearest emergency room | || for shortness of breath and decompensation | || Please use COVID-19 telephone number for any questions, Return to | || clinic as recommended or negative testing with remaining symptoms | || RTO if + around day 9-10 to give release for school, also RTO sooner if | || develops s/s and needing mng | || ER Precautions given | |+ + +| lipid panel | 2021-02-13 || awaiting result | |+ + +| CBC and CMP today | 2021-02-13 |+ + +| advised pt to get a BP cuff and take his BP daily for 2 weeks, keep a log and | 2021-02-13 || bring it back | || Encourage low-fat/low salt diet, exercise, portion control, weight management | || RTO in 6 weeks for follow-up and repeat blood pressure. | || Limit sodium intake, dont add any salt to foods | || Wear compression stockings daily | || Advised if BP elevated 160/100s and having s/s such as headache, vision changes | || or dizziness go to ER | || Also discussed if bp is remaining high and she can take she isnt able to | || incorporate life style modification come back and will start low dose HCTZ | || Start dieting and exercising- need to get HR elevated and sweating for 30mins | |+ + +| will send over Bromfed | 2021-08-28 || Increase water intake | || Hand hygiene - good hand washing | || Minimize contact with others | || Humidify air to prevent drying of respiratory secretions. Recommend steam | || inhalation 20-30 minutes three times daily | || Saline irrigation (Neti pot) or saline nose drops for nasal congestion. | || Avoid exposure to cigarette smoke or fumes. | || Avoid caffeine and alcohol. | || Increase fluids. | || Get plenty of rest. | || Discussed purpose and side effects of prescribed medications. | |+ + +| she is intersted in monclonial antibody infusion if she is + | 2021-10-10 || RTO if + if s/s worsen, and at day 9 or 10 so we can provide work/school | || clearance | || RTO entered for COVID testing | || Continue practicing social distancing, self quarantine, and monitor symptoms | || Results returning 7-10 days secondary to high volume of [place] Testing Priority | || results as designated by CDC returning up to 3 days | || Check Patient Portal for negative results 7-10 days or await SMS messaging | || Positive Results will be called to patient to begin isolation, receive ER | || precautions and follow up Telehealth appointments. Positive results will be | || notified to the [facility] Department to determine contact tracing | || Continue self quarantine as indicated until results return, social distancing, | || hand hygiene and enforced mask wearing Proceed to your nearest emergency room | || for shortness of breath and decompensation | || Please use COVID-19 telephone number for any questions, Return to | || clinic as recommended or negative testing with remaining symptoms | || RTO if needed | |+ + +| likely r/t post nasal drip | 2021-10-10 || will test for COVID flu and strep | || will send antihistamine | |+ + +| will send over Bromfed | 2021-10-10 || Increase water intake | || Hand hygiene - good hand washing | || Minimize contact with others | || Humidify air to prevent drying of respiratory secretions. Recommend steam | || inhalation 20-30 minutes three times daily | || Saline irrigation (Neti pot) or saline nose drops for nasal congestion. | || Avoid exposure to cigarette smoke or fumes. | || Avoid caffeine and alcohol. | || Increase fluids. | || Get plenty of rest. | || Discussed purpose and side effects of prescribed medications. | |+ + +| will test for COVID, FLU and strep | 2021-10-10 |+ + +| A1C performed, pending results | 2021-12-13 |+ + +| LIPID =fasting | 2022-07-26 || | || atorvastatin 20mg qhs | |+ + +| Referral to general surgeon | 2022-10-02 |+ + +| Lantus solostar 15 units a day | 2022-11-13 || VICTOZA 1.8 MG/DAILY SC | || GLIPIZIDE METFORMIN 5/500 2 TABLETS BID- consider stopping if continued | || elevated LFT | || ATORVASTATIN 20 MG QD | || RTC in 2-3 months to recheck a1c | || s/e of meds discussed | || | || Encourage good blood sugar control, good fitting shoes, and to keep feet clean | || and dry | |+ + +| Screening mammogram referral initiated | 2023-01-16 || Aletha application filled out by patient | |+ + +| [facility] | 2023-01-16 |+ + +| UA | 2023-02-19 || URINE CX | |+ + +| cyclobenzaprine 10 mg qd prn | 2023-02-19 || s/e of meds discussed | |+ + +| naproxen 500 mg bid po | 2023-02-19 || s/e of meds discussed | || Mini take as directed | |+ + +| Exercise 15-30 minutes a day for 5 days of a week. | 2023-04-15 |+ + +| Avoid processed foods. Eat more fruits and vegetables. | 2023-04-15 || ADA diet | |+ + +| Eat low fat diet. Avoid trans fat and fast foods. Eat more fruits and | 2023-09-24 || vegetables. | |+ + +| H PYLORI BREATH TEST | 2023-09-24 || STOP GLIPIZIDE/METFORMIN | || INCREASE LANTUS TO 15 UNITS A DAY | || rtc in 2 weeks to check of abd pain resolves | |+ + +| MICROSCOPIC UA | 2023-09-24 || UA | || URINE CX | |+ + +| BETA HYDROXY BUTYRIC ACID | 2023-09-24 || UA - LARGE AMOUNTS OF KETONES AND GLUCOSE | |+ + +| fluconzole take as directed | 2023-09-24 || clotrimazole 7 take as directed | || s/e of meds discussed | || | || If recurrent, may consider fluconazole 150 mg once a week for 6 months | |+ + +| clotrimazole 7 take as directed | 2023-09-24 |+ + +| UA unremarkable, sent for . | 2023-10-14 || Increase water intake. | || Control blood glucose. | |+ + +| BETA HYDROXY BUTYRIC ACID | 2023-10-14 || UA - LARGE AMOUNTS OF KETONES AND GLUCOSE | |+ + +| lisinopril 5 mg qd po | 2023-10-14 |+ + +| Most likely secondary to uncontrolled DM | 2023-12-05 |+ + +| STOP GLIPIZIDE/METFORMIN | 2024-01-20 || INCREASE LANTUS TO 15 UNITS A DAY | || rtc in 2 weeks to check of abd pain resolves | |+ + +| STOP GLIPIZIDE/METFORMIN if elevated LFT | 2024-01-20 || pt did not stop as requested last visit | || LANTUS TO 15 UNITS A DAY | |+ + +| Order MRI of pelvis with and without contrast. | 2024-01-30 || results pending. | |+ + +| pt did not complete h pylori tx | 2024-02-03 || RTC 4 weeks AFTER completing abx | |+ + +[id number] of TreatmentLNC.[facility]. [facility]|[id number] for patient [id number] Section NarrativeNARRATIVEFormatted C-CDA narrative textSAdvanced Care Hospital of Southern New Mexicoilia GuzmanWashington [facility]2024-05-20T00:00:00 [facility] 00:00:00 [id number] /uobjBAccgv+WUk c+[id number]+[id number]+[id number] T00:00:00+ + +| Plan Activity | Plan Date |+ + +| Continue Glipizide/Metformin 5/500 mg BID, does not need refills. | 2015-11-28 || ADA diet and 30 mins daily activity. | || F/u after May 16 to repeat A1C. | |+ + +| Increase Exercise to 3-5 times a week for at least 45 minutes | 2015-11-28 || High Fiber Low Calorie Diet | || Reduce Carbohydrates | || Increase Vegetables | || 5-6 small healthy meals a day | || Appended: 2015-12-12 | || Low fat, low carbohydrate diet. | || Eat 5 to 6 kat meals daily | || Drink at least 8-10 glasses of water daily | || Regular exercise ( at least 30 minutes daily ) | || Appended: 2016-05-24 | || control portions , low caloric , low carbohydrates diet | || manage weight . | || Appended: 2016-06-23 | || control portions , manage weight | || daily exercise , healthy diet | |+ + +| Condoms Provided | 2015-11-28 || Counseled on STDS | || Counseled on Control Methods other than Condoms | || Counseled on Compliance with Contraceptive regimen | || Confirms no sexual activity within two weeks of refill | || UPT - Neg | || Counseled on Compliance with contraceptive regimen to avoid | |+ + +| Amoxicillin 500 mg PO Q12 x 7 days | 2015-12-12 || Pseudoephedrine 30 mg daily for ear pressure | |+ + +| 1. augmentin orally x 10 days | 2016-02-11 || 2. Ibuprofen /tylenol for pain | || 3/ RTC for any worsening /new symptoms as needed | |+ + +| 1. cortisporin Otic drops 4 drops tid b/l ears x 10 days | 2016-02-11 || 2. keep the ear clean and dry . | || 3. avoid inserting any objects to the ears . | |+ + +| Augmentin every 12 hours by mouth for 10 days. | 2016-08-13 || Antibiotics do not relieve pain in the first 24 hours | || Discussed purpose and side effects of prescribed medications. | || Apply a warm compress to the affected ear. Get a clean towel and soak it in | || warm water. Ensure that the towel is not too hot. Place the warm towel over the | || infected ear and wait until it cools down. This will help to relieve pain, | || without having to take pain-relieving drugs. It also increases blood flow to | || the infected area, which leads to faster recovery. | || Swallowing to help the Eustachian tube ventilate | || Return to clinic if symptoms worsen over the next 7 days. | || Call 911 for emergency medical transport if a person has a temperature equal to | || or greater than 104 F (40 C), is confused, or is not responding to verbal | || stimuli or commands. | || Appended: 2017-06-16 | || Amoxicillin for ear infection | || Antibiotics do not relieve pain in the first 24 hours | || Discussed purpose and side effects of prescribed medications. | || Apply a warm compress to the affected ear. Get a clean towel and soak it in | || warm water. Ensure that the towel is not too hot. Place the warm towel over the | || infected ear and wait until it cools down. This will help to relieve pain, | || without having to take pain-relieving drugs. It also increases blood flow to | || the infected area, which leads to faster recovery. | || Swallowing to help the Eustachian tube ventilate | || Return to clinic if symptoms worsen over the next 7 days. | || Call 911 for emergency medical transport if a person has a temperature equal to | || or greater than 104 F (40 C), is confused, or is not responding to verbal | || stimuli or commands. | |+ + +| ABT as prescribed | 2016-08-23 || use cotton wick to facilitate passage of medication to the ear canal | || avoid prolonged ear exposure to warm humid climate . | || keep the ear clean and dry . | || Avoid swimming in contaminated water | || Washing the hands before touching the ears | || Dry the ear completely after exposure to moist conditions | || Wear ear plugs while swimming | || Avoid scratching the ears | || Avoid use of cotton swabs or other objects in the ea | || RTC failure to improve symptoms or any worsening symptoms | |+ + +| ABT as prescribed . keep the ear clean and dry | 2016-08-26 || RTC as scheduled for chronic management | |+ + +| Control portions , manage weight | 2016-08-26 || Increase Exercise to 3-5 times a week for at least 45 minutes | || High Fiber Low Calorie Diet Reduce Carbohydrates | || Increase Vegetables 5-6 small healthy meals a day | || Discussed the risks involved in increasing weight and insulin resistance | |+ + +| Mupirocin ointment in ears twice daily for 7 days | 2016-12-27 || avoid prolonged ear exposure to warm humid climate . | || keep the ear clean and dry . | || Avoid swimming in contaminated water | || Washing the hands before touching the ears | || Dry the ear completely after exposure to moist conditions | || Wear ear plugs while swimming | || Avoid scratching the ears | || Avoid use of cotton swabs or other objects in the ea | || RTC failure to improve symptoms or any worsening symptoms | |+ + +| 43 y/o WWE | 2017-02-11 || CBE normal | |+ + +| Limit fat intake to no more than 20% to 35% of your total calorie intake. For a | 2017-02-11 || person following a 1,800-calorie diet, this means eating no more than 40 to 70 | || grams of fat each day. | || Choose complex carbohydrates, such as whole grains, vegetables, and fruits. | || About 45% to 65% of your total calorie intake should come from carbohydrate. | || For someone following a 1,800-calorie diet, this means eating about 200 to 300 | || grams of carbohydrate each day. | || Choose low-fat protein sources, such as fish, poultry, and legumes (for | || example, manning beans, lentils, and split peas). About 10% to 35% of your total | || calorie intake should come from protein. For someone following a 1,800-calorie | || diet, this means eating about 45 to 160 grams of protein each day. | || Get enough fiber each day. Men should aim for 38 grams a day, and women should | || aim for 25 grams a day. | || Have no more than 1 alcohol drink a day for women and 2 alcohol drinks a day | || for men. | |+ + +| You can take charge of your health by staying current on well-care visits, | 2017-03-01 || screenings, and immunizations. Our goal is to help you live a healthier and | || happier life through preventive care. | || Recommend annual blood work: Complete Blood Count, Comprehensive metabolic | || panel, fasting lipid panel and TSH. | || Recommend a Tetanus-diphtheria every 10 years and a Flu vaccine every year | || unless it is contraindicated. | || HIV test one time during adulthood (through age 64) | || Take a daily multivitamin | || Occasionally check your blood pressure and notify the clinic if your blood | || pressure is over 140/80 or lower than 80/60. | || Schedule annual examination | |+ + +| Bactrim DS | 2017-03-01 || Antibiotics do not relieve pain in the first 24 hours | || Discussed purpose and side effects of prescribed medications. | || Apply a warm compress to the affected ear. Get a clean towel and soak it in | || warm water. Ensure that the towel is not too hot. Place the warm towel over the | || infected ear and wait until it cools down. This will help to relieve pain, | || without having to take pain-relieving drugs. It also increases blood flow to | || the infected area, which leads to faster recovery. | || Swallowing to help the Eustachian tube ventilate | || Return to clinic if symptoms worsen over the next 7 days. | || Call 911 for emergency medical transport if a person has a temperature equal to | || or greater than 104 F (40 C), is confused, or is not responding to verbal | || stimuli or commands. | |+ + +| loratadine 10 mg 1 tablet by mouth DAILY | 2017-06-16 || Avoid exposure to cigarette smoke or fumes. | || Over the counter saline nasal spray can help "wash" offending | || particles away. | || Reduce flare-ups by identifying the allergens that affect you and avoiding | || exposure to them. Common allergens include trees, pollen, dust mites, animal | || fur, mold, and insects. | || Remove the offending allergen (for example: frequent vacuuming, dusting, change | || air conditioner filter frequently, washing bed sheets, and pet control). | || Discussed purpose and side effects of prescribed medications. | || Return to clinic if symptoms worsen over the next 7 days and in three months | || for chronic management | |+ + +| citalopram 20 mg 1 tablet by mouth DAILY | 2017-06-16 || Discussed medication purpose and side effects. | || Referral to behavioral health | || Stick to your treatment plan. Don't skip psychotherapy sessions or | || appointments. Even if you're feeling well, don't skip your | || medications. If you stop, depression symptoms may come back, and you could also | || experience withdrawal-like symptoms. | || Learn about depression. Education about your condition can empower you and | || motivate you to stick to your treatment plan. Encourage your family to learn | || about depression to help them understand and support you. | || Pay attention to warning signs. Work with your doctor or therapist to learn | || what might trigger your depression symptoms. Make a plan so that you know what | || to do if your symptoms get worse. Contact your doctor or therapist if you | || notice any changes in symptoms or how you feel. Ask relatives or friends to | || help watch for warning signs. | || Avoid alcohol and recreational drugs. It may seem like alcohol or drugs lessen | || depression symptoms, but in the long run they generally worsen symptoms and | || make depression harder to treat. Talk with your doctor or therapist if you need | || help with alcohol or substance use. | || Take care of yourself. Eat healthy, be physically active and get plenty of | || sleep. Consider walking, jogging, swimming, gardening or another activity that | || you enjoy. Sleeping well is important for both your physical and mental | || well-being. If you're having trouble sleeping, talk to your doctor about | || what you can do. | || Return to clinic in three months for chronic management. | |+ + +| Urinalysis- leukocytes and blood . Urine C/S Results will be called and | 2017-08-14 || addressed | || Take ABT as Prescribed.OTC pyridium for bladder pain and spasm . Med SE as per | || pharmacy | || Take Tylenol/Ibuprofen for back pain and fever | || Avoid caffeine, or alcohol until symptoms are resolved, plenty of fluids to | || flush the bladder, | || Continue to drink 6-8 glasses of water after resolution to prevent future | || infection, | || drink craneberry juice to aid with the healing process, | || Urinate before and after intercourse, wear cotton underwear and avoid bubble | || bathing or douching | || RTC if symptoms persist after ABT | |+ + +| weight and height disproportionate | 2021-11-14 || Obesity Class III | || Therapeutic lifestyle changes required | || RTC for weight management discussion | |+ + +| CMP | 2018-07-03 || A1C 9.6% 01/2024 | || | || Lisinopril 5 mg qd | || Diabetic foot exam done | |+ + +| Permethrin 5% topical cream thoroughly message cream into the skin from the | 2018-11-20 || head to the soles of feet. Remove cream by shower or bath after 8-14 hours. | || Wash all clothing, bedding, towels, etc. used within the last 4 days. | || Maintain good personal hygiene. | || Return to clinic in 7 days if symptoms persist. | || Discussed purpose and side effects of prescribed medications. | |+ + +| Most likely 2/2 atopic dermatits/eczema vs contact dermatitis | 2021-11-14 || Triamcinolone 0.1% topical BID x 14 days | || RTC in 14 days if symptoms persist or worsen | |+ + +| breast exam normal | 2019-11-23 |+ + +| STD panel done today | 2019-11-23 || awaiting results | |+ + +| IUD strings visible at OS. appears to be in place | 2019-11-23 || RTO for removal and reinsertion of new IUD | |+ + +| advised to schedule for IUD mirena placement | 2020-01-04 |+ + +| IUD insertion today, see procedure note | 2020-01-06 || UPT negative, urine sent for GC/Chlam | || RTO 2w for string check | |+ + +| IUD string visualized | 2020-02-06 || RTO PRN | |+ + +| BMI helps pt to qualilfy for monocolonial antibody infusions and she is | 2020-06-09 || interested if + | || RTO entered for COVID testing | || Continue practicing social distancing, self quarantine, and monitor symptoms | || Results returning 7-10 days secondary to high volume of [place] Testing Priority | || results as designated by CDC returning up to 3 days | || Check Patient Portal for negative results 7-10 days or await SMS messaging | || Positive Results will be called to patient to begin isolation, receive ER | || precautions and follow up Telehealth appointments. Positive results will be | || notified to the [facility] to determine contact tracing | || Continue self quarantine as indicated until results return, social distancing, | || hand hygiene and enforced mask wearing Proceed to your nearest emergency room | || for shortness of breath and decompensation | || Please use COVID-19 telephone number for any questions, Return to | || clinic as recommended or negative testing with remaining symptoms | || RTO if + around day 9-10 to give release for school, also RTO sooner if | || develops s/s and needing mng | || ER Precautions given | |+ + +| lipid panel | 2021-02-13 || awaiting result | |+ + +| CBC and CMP today | 2021-02-13 |+ + +| advised pt to get a BP cuff and take his BP daily for 2 weeks, keep a log and | 2021-02-13 || bring it back | || Encourage low-fat/low salt diet, exercise, portion control, weight management | || RTO in 6 weeks for follow-up and repeat blood pressure. | || Limit sodium intake, dont add any salt to foods | || Wear compression stockings daily | || Advised if BP elevated 160/100s and having s/s such as headache, vision changes | || or dizziness go to ER | || Also discussed if bp is remaining high and she can take she isnt able to | || incorporate life style modification come back and will start low dose HCTZ | || Start dieting and exercising- need to get HR elevated and sweating for 30mins | |+ + +| will send over Bromfed | 2021-08-28 || Increase water intake | || Hand hygiene - good hand washing | || Minimize contact with others | || Humidify air to prevent drying of respiratory secretions. Recommend steam | || inhalation 20-30 minutes three times daily | || Saline irrigation (Neti pot) or saline nose drops for nasal congestion. | || Avoid exposure to cigarette smoke or fumes. | || Avoid caffeine and alcohol. | || Increase fluids. | || Get plenty of rest. | || Discussed purpose and side effects of prescribed medications. | |+ + +| she is intersted in monclonial antibody infusion if she is + | 2021-10-10 || RTO if + if s/s worsen, and at day 9 or 10 so we can provide work/school | || clearance | || RTO entered for COVID testing | || Continue practicing social distancing, self quarantine, and monitor symptoms | || Results returning 7-10 days secondary to high volume of [place] Testing Priority | || results as designated by CDC returning up to 3 days | || Check Patient Portal for negative results 7-10 days or await SMS messaging | || Positive Results will be called to patient to begin isolation, receive ER | || precautions and follow up Telehealth appointments. Positive results will be | || notified to the [facility] Department to determine contact tracing | || Continue self quarantine as indicated until results return, social distancing, | || hand hygiene and enforced mask wearing Proceed to your nearest emergency room | || for shortness of breath and decompensation | || Please use [employer]-19 telephone number for any questions, Return to | || clinic as recommended or negative testing with remaining symptoms | || RTO if needed | |+ + +| likely r/t post nasal drip | 2021-10-10 || will test for COVID flu and strep | || will send antihistamine | |+ + +| will send over Bromfed | 2021-10-10 || Increase water intake | || Hand hygiene - good hand washing | || Minimize contact with others | || Humidify air to prevent drying of respiratory secretions. Recommend steam | || inhalation 20-30 minutes three times daily | || Saline irrigation (Neti pot) or saline nose drops for nasal congestion. | || Avoid exposure to cigarette smoke or fumes. | || Avoid caffeine and alcohol. | || Increase fluids. | || Get plenty of rest. | || Discussed purpose and side effects of prescribed medications. | |+ + +| will test for COVID, FLU and strep | 2021-10-10 |+ + +| A1C performed, pending results | 2021-12-13 |+ + +| LIPID =fasting | 2022-07-26 || | || atorvastatin 20mg qhs | |+ + +| Referral to general surgeon | 2022-10-02 |+ + +| Lantus solostar 15 units a day | 2022-11-13 || VICTOZA 1.8 MG/DAILY SC | || GLIPIZIDE METFORMIN 5/500 2 TABLETS BID- consider stopping if continued | || elevated LFT | || ATORVASTATIN 20 MG QD | || RTC in 2-3 months to recheck a1c | || s/e of meds discussed | || | || Encourage good blood sugar control, good fitting shoes, and to keep feet clean | || and dry | |+ + +| Screening mammogram referral initiated | 2023-01-16 |+ + +| [facility] | 2023-01-16 |+ + +| UA | 2023-02-19 || URINE CX | |+ + +| cyclobenzaprine 10 mg qd prn | 2023-02-19 || s/e of meds discussed | |+ + +| naproxen 500 mg bid po | 2023-02-19 || s/e of meds discussed | || Benggigi take as directed | |+ + +| Exercise 15-30 minutes a day for 5 days of a week. | 2023-04-15 |+ + +| Avoid processed foods. Eat more fruits and vegetables. | 2023-04-15 |+ + +| Eat low fat diet. Avoid trans fat and fast foods. Eat more fruits and | 2023-09-24 || vegetables. | |+ + +| H PYLORI BREATH TEST | 2023-09-24 || STOP GLIPIZIDE/METFORMIN | || INCREASE LANTUS TO 15 UNITS A DAY | || rtc in 2 weeks to check of abd pain resolves | |+ + +| MICROSCOPIC UA | 2023-09-24 || UA | || URINE CX | |+ + +| BETA HYDROXY BUTYRIC ACID | 2023-09-24 || UA - LARGE AMOUNTS OF KETONES AND GLUCOSE | |+ + +| fluconzole take as directed | 2023-09-24 || clotrimazole 7 take as directed | || s/e of meds discussed | || | || If recurrent, may consider fluconazole 150 mg once a week for 6 months | |+ + +| clotrimazole 7 take as directed | 2023-09-24 |+ + +| BRETT morrison, sent for . | 2023-10-14 || Increase water intake. | || Control blood glucose. | |+ + +| BETA HYDROXY BUTYRIC ACID | 2023-10-14 || UA - LARGE AMOUNTS OF KETONES AND GLUCOSE | |+ + +| lisinopril 5 mg qd po | 2023-10-14 |+ + +| Most likely secondary to uncontrolled DM | 2023-12-05 |+ + +| STOP GLIPIZIDE/METFORMIN | 2024-01-20 || INCREASE LANTUS TO 15 UNITS A DAY | || rtc in 2 weeks to check of abd pain resolves | |+ + +| STOP GLIPIZIDE/METFORMIN if elevated LFT | 2024-01-20 || pt did not stop as requested last visit | || LANTUS TO 15 UNITS A DAY | |+ + +| Order MRI of pelvis with and without contrast. | 2024-01-30 || results pending. | |+ + +| pt did not complete h pylori tx | 2024-02-03 || RTC 4 weeks AFTER completing abx | |+ + +[id number] of TreatmentLNCARE PLANTXTSFA|[id number] for patient [id number] Section NarrativeNARRATIVEFormatted C-CDA narrative textSGregg Tim [facility]2024-04-17T00:00:00 Shawn Ange [facility]
[2024-04-11] MEDS ORDERED: NA CHLORIDE 0.9% 1,000 ML ONE (18:54)
[2024-04-11] MEDS ORDERED: ONDANSETRON 4 MG/2 ML VIAL ONE (18:54)
[2024-04-11] MEDS ORDERED: MORPHINE 4 MG/ML SYR ONE (18:54)
[2024-04-11 19:09] LABS: Absolute Basophils 0.1 K/uL (0-0.5); Absolute Eosinophils 0.3 K/uL (0-0.5); Absolute Lymphocytes (CBC) 2.4 K/uL (0.7-4.9); Absolute Monocytes 0.7 K/uL (0.1-1.3); Absolute Neutrophil 7.5 K/uL (1.8-8.0); Basophils % 0.7 % (0-1.3); Eosinophils % 3.1 % (0-4.4); Hemoglobin 14.2 g/dL (12.0-15.0); Lymphocytes % 22.1 % (15.3-44.8); MCH 29.9 pg (27.0-35.0); MCHC 33.9 g/dL (32.0-36.0); MCV 88.1 fL (80-100); MPV 9.1 fL (7.6-11.3); Monocytes % 6.3 % (3.3-12.3); Neutrophils % 67.8 % (41.7-73.7); Nucleated Red Blood Cells % 0.1 % (0-0); Platelets 421 thou/uL (152-406); RBC Red Blood Cell Count 4.76 M/uL (3.86-4.86); Red Cell Distribution Width 12.5 % (12.1-15.2)
[2024-04-11 19:19] LABS: Albumin 3.7 g/dL (3.4-5.0); Albumin/Globulin Ratio 0.9 (1.1-1.8); Anion Gap 9.9 mEq/L (5.0-15.0); Bilirubin Total 0.4 mg/dL (0.2-1.0); Potassium 3.9 mEq/L (3.5-5.1); Protein, Total 7.7 g/dL (6.4-8.2)
[2024-04-11 20:13] LABS: Specific Gravity 1.013 (1.005-1.030)
[2024-04-11 20:15] LABS: Specific Gravity 1.013 (1.005-1.030); Sqamous Epithelial <5 /HPF (None Seen); Urine Bacteria <20 /HPF (<20); Urine Bilirubin NEGATIVE (Negative); Urine Blood 2+ (Negative); Urine Clarity Clear (Clear); Urine Color Light-Yellow (Yellow); Urine Culture Reflex Order NOT NEEDED; Urine Glucose 2+ (Negative); Urine Ketones 1+ (Negative); Urine Microscopic Reflex YN ORDER UMIC; Urine Nitrite NEGATIVE (Negative); Urine Protein NEGATIVE (Negative); Urine RBC <5 /HPF (None Seen); Urine Urobilinogen Normal (Normal); Urine WBC <5 /HPF (<5)
--- NOTE | 2024-04-11 21:07 | RAD REPORT ---
EXAM DESCRIPTION: CT - Abdomen Pelvis W Contrast - 04/11/2024 8:48 pm CLINICAL HISTORY: Abdominal pain COMPARISON: none. TECHNIQUE: Computed axial tomography of the abdomen pelvis was obtained. 100 cc Isovue-300 was admin istered intravenously. Oral contrast was not requested which limits evaluation of bowel and appendix All CT scans are performed using dose optimization technique as appropriate and may include automated exposure control or mA/KV adjustment according to patient size. FINDINGS: Liver is mildly enlarged. Fatty infiltration is present. Spleen, pancreas, adrenals and kidneys unremarkable An abnormal appendix is not seen There is no evidence of diverticulitis. No adnexal mass. Ventral hernia repair IUD within uterus. IMPRESSION: Mild hepatomegaly with mild fatty infiltration
--- NOTE | 2024-04-11 21:17 | ER ---
Nurse's Notes [facility] Name: Chloe Burton Age: 44 yrs Sex: Female : 1980 Arrival Date: 04/11/2024 Time: 18:35 Bed 20 Private MD: Diagnosis: Bacterial vaginosis;Fatty (change of) liver, not elsewhere classified Presentation: 04/11 18:48 Chief complaint: Patient states: Epigastric pain radiating to RUQ that started last ph night, N/V and chills, also report vaginal itching and burning that has been going on for months, has used cream w/ little relief. Coronavirus screen: Vaccine status: Patient reports receiving the 2nd dose of the covid vaccine. Ebola Screen: No symptoms or risks identified at this time. Initial Sepsis Screen: Does the patient meet any 2 criteria? No. Patient's initial sepsis screen is negative. Does the patient have a suspected source of infection? No. Patient's initial sepsis screen is negative. Risk Assessment: Do you want to hurt yourself or someone else? Patient reports no desire to harm self or others. Onset of symptoms was April 11, 2024. 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 - Infectious Disease History:: Denies. - Social history:: Smoking status: Patient denies any tobacco usage or history of. Screenin:11 [facility] ED Fall Risk Assessment (Adult) History of falling in the last 3 months, me1 including since admission No falls in past 3 months (0 pts) Confusion or Disorientation No (0 pts) Intoxicated or Sedated No (0 pts) Impaired Gait No (0 pts) Mobility Assist Device Used No (0 pt) Altered Elimination No (0 pt) Score/Fall Risk Level 0 - 2 = Low Risk Maintained a safe environment, Provided non-skid footwear, Hourly rounding (assess needs \T\ fall precautionary measures) done. Abuse screen: Denies threats or abuse. Nutritional screening: No deficits noted. Tuberculosis screening: No symptoms or risk factors identified. Assessment: 19:07 General: Appears uncomfortable, ill, obese, well groomed, well developed, well me1 nourished, Behavior is Reports Epigastric pain radiating to RUQ that started last night, N/V and chills, also report vaginal itching and burning that has been going on for months, has used cream w/ little relief. 19:11 Pain: Complains of pain in epigastric area Pain radiates to right upper quadrant Pain me1 currently is 10 out of 10 on a pain scale. Quality of pain is described as sharp, Pain began 1 day ago. Is continuous. Neuro: Level of Consciousness is awake, alert, obeys commands, Oriented to person, place, time, situation, Appropriate for age. Cardiovascular: Capillary refill < 3 seconds Patient's skin is warm and dry. Respiratory: Airway is patent Respiratory effort is even, unlabored, Respiratory pattern is regular, symmetrical. GI: Bowel sounds present X 4 quads. Abd is soft X 4 quads Reports upper abdominal pain, diarrhea, nausea, vomiting, since last night. : No signs and/or symptoms were reported regarding the genitourinary system. : Reports vaginal itching. EENT: No signs and/or symptoms were reported regarding the EENT system. Derm: Skin is intact, is healthy with good turgor, Skin is pink, warm \T\ dry. Musculoskeletal: No signs and/or symptoms reported regarding the musculoskeletal system. Vital Signs: 18:48 BP 137 / 73; Pulse 98; Resp 18; Temp 98.3; Pulse Ox 98% on R/A; Weight 104.33 kg; ph Height 5 ft. 1 in. ; 19:00 BP 125 / 82; Pulse 92; Resp 17; Pulse Ox 95% on R/A; me1 20:00 BP 121 / 69; Pulse 67; Resp 16; Pulse Ox 98% on R/A; me1 21:00 BP 108 / 69; Pulse 82; Resp 16; Pulse Ox 97% on R/A; me1 18:48 Body Mass Index 43.46 (104.33 kg, 154.94 cm) ph ED Course: 18:36 Patient arrived in ED. am2 18:38 Audi Sim MD is Attending Physician. ec2 18:38 Emma Conner, RN is Primary Nurse. me1 18:51 Triage completed. ph 18:53 Initial lab(s) drawn, by me, sent to lab. Inserted saline lock: 20 gauge in right aw1 antecubital area, using aseptic technique. 18:53 CBC with Diff Sent. aw1 18:53 CMP Sent. aw1 18:53 Lipase Sent. aw1 18:53 Bed in low position. Call light in reach. Side rails up X 1. Adult w/ patient. Door aw1 closed. Noise minimized. Warm blanket given. 18:53 Arm band placed on Patient placed in an exam room, on a stretcher. ph 19:06 Wet Prep Sent. me1 19:11 Cynthia Grubbs FNP-C is PHCP. kb 19:11 No provider procedures requiring assistance completed. me1 19:11 Provided Education on: POC. Verbalized understanding. . Client placed on continuous me1 cardiac and pulse oximetry monitoring. NIBP monitoring applied. Pulse ox on. NIBP on. 19:18 Wet Prep Sent. me1 20:07 Test, Urine Sent. me1 20:07 Urinalysis w/ reflexes Sent. me1 20:07 Urine collected: clean catch specimen, clear. me1 20:50 CT Abd/Pelvis - IV Contrast Only In Process Unspecified. EDMS 21:28 IV discontinued, intact, bleeding controlled, No redness/swelling at site. Pressure me1 dressing applied. Administered Medications: 19:06 Drug: NS 0.9% IV 1000 ml IV at 1 bolus Per protocol; 1000 mL bolus Route: IV; Rate: 1 me1 bolus; Site: right antecubital; 21:10 Follow up: Response: No adverse reaction; IV Status: Completed infusion; IV Intake: me1 1000ml 19:06 Drug: Ondansetron IVP 4 mg IVP once; over 2 minutes Route: IVP; Site: right antecubital;me1 19:15 Follow up: Response: No adverse reaction; Nausea is decreased me1 19:06 Drug: morphine IVP or IV 4 mg IVP once over 4 mins Route: IVP; Infused Over: 4 mins; me1 Site: right antecubital; 19:15 Follow up: Response: No adverse reaction; Pain is decreased me1 Medication: 19:11 VIS not applicable for this client. me1 Intake: 21:10 IV: 1000ml; Total: 1000ml. me1 Outcome: 21:17 Discharge ordered by . kb 21:28 Discharged to home ambulatory, with family, me1 21:28 Condition: stable 21:28 Discharge instructions given to patient, family, Instructed on discharge instructions, follow up and referral plans. medication usage, Demonstrated understanding of instructions, follow-up care, medications, Prescriptions given X 2, 21:29 Patient left the ED. me1 Signatures: Dispatcher [employer] EDCynthia Mcconnell, CAMP NURSE-C CAMP NURSE-CkOrquidea Rubio, RN RN Raymundo, Kelle am2 Darcie Frazier aw1 Emma Conner RN RN me1 Audi Sim MD MD ec2 Corrections: (The following items were deleted from the chart) 19:07 18:48 Chief complaint: Patient states: Epigastric pain radiating to RUQ that started me1 last night, N/V and chills, also report vaginal itching and burning that has been going on for months, has used cream w/ little relief ph 19:14 19:07 General: Appears uncomfortable, ill, obese, well groomed, well developed, well me1 nourished, Behavior is Reports Epigastric pain radiating to RUQ that started last night, N/V and chills, also report vaginal itching and burning that has been going on for months, has used cream w/ little relief me1
--- NOTE | 2024-04-11 21:17 | EDPHYS ---
Physician Documentation [facility] Name: Chloe Burton Age: 44 yrs Sex: Female : 1980 Arrival Date: 04/11/2024 Time: 18:35 Bed 20 Private MD: ED Physician Audi Sim HPI: 04/11 18:46 This 44 yrs old Female presents to ER via Unassigned with complaints of ec2 Abdominal Pain, Nausea/Vomiting. 18:46 Patient arrives today for ongoing upper abdominal pain with associated nausea, ec2 vomiting, diarrhea. Patient reports that she has been having worsening pain throughout the day, started last night. Reports associated nausea and vomiting and diarrhea. Reports that she has been unable to eat due to nausea. Patient reports previous history of hernia repair, otherwise no other abdominal surgeries. Denies urinary complaints. Does report issues with chronic vaginal yeast infections which she has been treated with topical vaginal creams. States that she has chronic vaginal discharge.. 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 - Infectious Disease History:: Denies. - Social history:: Smoking status: Patient denies any tobacco usage or history of. ROS: 18:47 Constitutional: as per hpi ec2 Exam: 18:47 Constitutional: GEN: NAD Head: atraumatic Eyes: EOMI Ears: External ears are ec2 normal. CV: regular rate LUNGS: no respiratory distress ABD: non-distended, soft, tender in the epigastrium, not guarding, not rigid. SKIN: no evidence of rashes MSK: no evidence of trauma NEURO: moves all extremities equally Vital Signs: 18:48 BP 137 / 73; Pulse 98; Resp 18; Temp 98.3; Pulse Ox 98% on R/A; Weight 104.33 kg; ph Height 5 ft. 1 in. ; 19:00 BP 125 / 82; Pulse 92; Resp 17; Pulse Ox 95% on R/A; me1 20:00 BP 121 / 69; Pulse 67; Resp 16; Pulse Ox 98% on R/A; me1 21:00 BP 108 / 69; Pulse 82; Resp 16; Pulse Ox 97% on R/A; me1 18:48 Body Mass Index 43.46 (104.33 kg, 154.94 cm) ph MDM: 18:38 Patient medically screened. ec2 18:47 Data reviewed: vital signs. ED course: Patient arrives today for evaluation of upper ec2 abdominal pain. Examination remarkable for abdominal findings as above. Will obtain lab work, urine studies, CT imaging and treat the patient symptoms. Differential diagnosis include processes such as pancreatitis, appendicitis, cholecystitis.. 18:57 ED course: Patient signed out with pending lab work and imaging. . ec2 21:16 Counseling: I had a detailed discussion with the patient and/or guardian regarding the kb historical points, exam findings, and any diagnostic results supporting the discharge/admit diagnosis, lab results, radiology results, the need for outpatient follow up, a drapery operator, an OB/Gyne specialist, to return to the emergency department if symptoms worsen or persist or if there are any questions or concerns that arise at home. 04/11 18:46 Order name: CBC with Diff; Complete Time: 19:16 ec2 04/11 18:46 Order name: CMP; Complete Time: 19:19 ec2 04/11 18:46 Order name: Lipase; Complete Time: 19:19 ec2 04/11 18:46 Order name: Test, Urine; Complete Time: 20:15 ec2 04/11 18:46 Order name: Urinalysis w/ reflexes; Complete Time: 20:15 ec2 04/11 18:46 Order name: Wet Prep; Complete Time: 19:25 ec2 04/11 18:46 Order name: CT Abd/Pelvis - IV Contrast Only; Complete Time: 21:11 ec2 04/11 18:46 Order name: IV Saline Lock; Complete Time: 18:53 ec2 04/11 18:46 Order name: Labs collected and sent; Complete Time: 18:53 ec2 04/11 18:47 Order name: Misc. Order: self swab wet prep; Complete Time: 19:06 ec2 Administered Medications: 19:06 Drug: NS 0.9% IV 1000 ml IV at 1 bolus Per protocol; 1000 mL bolus Route: IV; Rate: 1 me1 bolus; Site: right antecubital; 21:10 Follow up: Response: No adverse reaction; IV Status: Completed infusion; IV Intake: me1 1000ml 19:06 Drug: Ondansetron IVP 4 mg IVP once; over 2 minutes Route: IVP; Site: right antecubital;me1 19:15 Follow up: Response: No adverse reaction; Nausea is decreased me1 19:06 Drug: morphine IVP or IV 4 mg IVP once over 4 mins Route: IVP; Infused Over: 4 mins; me1 Site: right antecubital; 19:15 Follow up: Response: No adverse reaction; Pain is decreased me1 Disposition: 04/12 07:09 I agree with the assessment and plan of care. I reviewed the patient's care provided by 2 Advanced Practice Provider \T\ agree w/ the diagnosis \T\ care plan. I personally saw the pt \T\ performed a substantive portion of the visit, incldng all aspects of the (History/Exam/Medical Decision Making). Disposition Summary: 04/11/24 21:17 Discharge Ordered Notes: Location: Home kb Condition: Stable kb Diagnosis - Bacterial vaginosis kb - Fatty (change of) liver, not elsewhere classified kb Followup: kb - With: Emergency Department - When: As needed - Reason: Worsening of condition Followup: kb - With: Private Physician - When: 2 - 3 days - Reason: Recheck today's complaints, Continuance of care, Re-evaluation by your physician Discharge Instructions: - Discharge Summary Sheet kb - Fatty Liver Disease kb - Bacterial Vaginosis, Radp-in-Fasr kb Forms: - Medication Reconciliation Form kb - Antibiotic Education kb - Prescription Opioid Use kb - Patient Portal Instructions kb - Leadership Thank You Letter kb Prescriptions: - Flagyl 500 mg Oral Tablet - take 1 tablet ORAL route every 12 hours for 7 days; 14 tablet; Refills: 0, kb Product Selection Permitted - Zofran 4 mg Oral tablet - take 1 tablet ORAL route every 6 hours As needed; 12 tablet; Refills: 0, kb Product Selection Permitted Signatures: Dispatcher [employer] Cynthia Bacon, CERTIFIED MEDICATION AIDE-C SCOTT-Orquidea Newman RN RN ph Emma Conner RN RN me1 Audi Sim MD MD ec2 Corrections: (The following items were deleted from the chart) 04/11 18:46 18:46 CBC+H.LAB.BRZ ordered. EDMS EDMS 18:46 18:46 COMPREHENSIVE METABOLIC PANEL+C.LAB.BRZ ordered. EDMS EDMS 18:46 18:46 LIPASE+C.LAB.BRZ ordered. EDMS EDMS 18:46 18:46 Test, Urine+UC.LAB.BRZ ordered. EDMS EDMS 18:46 18:46 Urinalysis+U.LAB.BRZ ordered. EDMS EDMS 18:46 18:46 Wet Prep+BA.LAB.BRZ ordered. EDMS EDMS
[2024-04-11 21:36] VITALS: TEMP 98.3
[2024-04-11 21:55] VITALS: BP 108/69; O2SAT 97
== END 2024-04-11 21:29 | disposition home or self-care (01) ==
LOC: ER 18:35
DX: N76.0 Acute vaginitis (principal); K76.0 Fatty (change of) liver, not elsewhere classified
CPT/HCPCS: 96361; 85025; 81001; 36415; 81025; 87210; 83690; 80053; 74177; 96375; 96374; 99284; Q9967; J2405; J7030